=== PATIENT | male | born 1930 | race Caucasian/White ===

== ENCOUNTER 2016-02-26 14:19 | Inpatient (IN) | payer OTHER, MEDICARE ==
[2016-02-26] MEDS ORDERED: ALBUTEROL SO4 2.5/IPRATROPIUM 0.5 INH SOL 3 ML VIAL.NEB. NEB ONE ×2 (14:27→16:15)
[2016-02-26] MEDS ORDERED: ALBUTEROL SO4 0.083% IH SOL 2.5 MG/3 ML VIAL.NEB. NEB ONE (16:02)
[2016-02-26] MEDS ORDERED: predniSONE 20 MG TABLET (UD) PO ONE (16:02)
[2016-02-26] MEDS ORDERED: IPRATROPIUM BR 0.02% 0.5 MG/2.5 ML VIAL.NEB. NEB ONE (16:02)
[2016-02-26] MEDS ORDERED: predniSONE 20 MG TABLET (UD) ONE (16:15)
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
[2016-02-26] MEDS ORDERED: SODIUM CHLORIDE 500 ML IV STA (17:28)
[2016-02-26 17:40] LABS: BASOPHIL 0.3 % (0-2.0); EOSINOPHIL 0.2 % (0-4.5); MCH 31.9 pg (25.7-33.7); MCHC 32.6 g/dl (32.0-35.9); MEAN CELL VOLUME 97.9 fl (80-96); MEAN PLT VOLUME 9.1 fl (7.5-11.1); NEUTROPHILS 88.2 % (42.8-82.8); PLATELET COUNT 231 K/MM3 (134-434); RDW 12.7 % (11.9-15.9); WHITE BLOOD COUNT 9.8 K/mm3 (4.0-10.0)
[2016-02-26 17:53] LABS: ALBUMIN 4.2 g/dl (3.4-5.0); ANION GAP 10 (8-16); CALCIUM 9.7 mg/dL (8.5-10.1); CO2 25 mmol/L (21-32); GLUCOSE,RANDOM 122 mg/dL (74-106); SGPT/ALT 26 U/L (12-78)
[2016-02-26 17:59] LABS: ALK PHOS 60 U/L (45-117); BILIRUBIN,TOTAL 0.4 mg/dL (0.2-1.0); CREATININE 1.1 mg/dL (0.7-1.3); SGOT/AST 21 U/L (15-37); TOT PROT 7.3 g/dl (6.4-8.2); TROPONIN I 0.07 ng/ml (0.00-0.05)
[2016-02-26] MEDS ORDERED: ASPIRIN 81 MG CHEWABLE TABLETS PO ONE (18:02)
[2016-02-26] MEDS ORDERED: MAGNESIUM SULF 50% (8.12 MEQ/2 ML-1 GM VIAL) IVPB ONE (18:02)
[2016-02-26] MEDS ORDERED: MAGNESIUM SULF 50% (8.12 MEQ/2 ML-1 GM VIAL) ONE (18:24)
[2016-02-26] MEDS ORDERED: ASPIRIN 81 MG CHEWABLE TABLETS ONE (18:24)
[2016-02-26] MEDS ORDERED: ACETAMINOPHEN 325 MG TABLET (FP) PO PRN (18:25)
[2016-02-26] MEDS ORDERED: ACETAMINOPHEN 325 MG TABLET (FP) PO ONE (18:45)
[2016-02-26] MEDS ORDERED: ACETAMINOPHEN 325 MG TABLET (FP) ONE (18:46)
[2016-02-26] MEDS ORDERED: ATORVASTATIN CA 10 MG TABLET (FP) PO SCH (22:00)
[2016-02-26] MEDS ORDERED: METOPROLOL TARTRATE 50 MG TABLET (FP) PO SCH (22:00)
[2016-02-26] MEDS ORDERED: HYDROCHLOROTHIAZIDE 25 MG TABLET (FP) PO SCH (22:00)
[2016-02-26] MEDS ORDERED: HEPARIN NA (PORCINE) 5,000 UNITS/ML 1ML VIAL ONE (22:57)
[2016-02-26] MEDS ORDERED: HYDROCHLOROTHIAZIDE 25 MG TABLET (FP) ONE (22:57)
[2016-02-26] MEDS ORDERED: METOPROLOL TARTRATE 50 MG TABLET (FP) ONE (22:57)
[2016-02-26] MEDS: HEPARIN NA (PORCINE) 5,000 UNITS/ML 1ML VIAL SQ SCH (23:06)
[2016-02-27 00:23] LABS: TROPONIN I 0.6 ng/ml (0.00-0.05)
[2016-02-27] MEDS: ALBUTEROL SO4 2.5/IPRATROPIUM 0.5 INH SOL 3 ML VIAL.NEB. NEB SCH ×2 (01:05→06:25)
[2016-02-27] MEDS ORDERED: HEPARIN NA (PORCINE) 5,000 UNITS/ML 1ML VIAL ONE (06:18)
[2016-02-27] MEDS: HEPARIN NA (PORCINE) 5,000 UNITS/ML 1ML VIAL SQ SCH (06:25)
[2016-02-27 08:03] LABS: MCH 32.8 pg (25.7-33.7); MCHC 33.5 g/dl (32.0-35.9); MEAN CELL VOLUME 97.7 fl (80-96); MEAN PLT VOLUME 8.9 fl (7.5-11.1); PLATELET COUNT 174 K/MM3 (134-434); RDW 12.7 % (11.9-15.9); WHITE BLOOD COUNT 6.7 K/mm3 (4.0-10.0)
[2016-02-27 08:13] LABS: CALCIUM 9.4 mg/dL (8.5-10.1); CREATININE 1.1 mg/dL (0.7-1.3); MAGNESIUM 2.6 mg/dL (1.8-2.4); PHOSPHOROUS 3.2 mg/dL (2.5-4.9)
[2016-02-27 08:51] LABS: TROPONIN I 0.73 ng/ml (0.00-0.05)
[2016-02-27] MEDS ORDERED: predniSONE 20 MG TABLET (UD) PO SCH (10:00)
[2016-02-27] MEDS ORDERED: amLODIPine BESYLATE 10 MG TABLET (FP) PO SCH ×2 (10:00→12:29)
[2016-02-27] MEDS ORDERED: PANTOPRAZOLE 40 MG TABLET (FP) ONE (10:08)
[2016-02-27] MEDS ORDERED: predniSONE 20 MG TABLET (UD) ONE (10:08)
[2016-02-27] MEDS ORDERED: amLODIPine BESYLATE 5 MG TABLET (FP) ONE (10:09)
--- NOTE | 2016-02-27 10:46 | HP ---
Admitting History and Physical - Primary Care Physician PCP: Alec Foley - Admission Chief Complaint: I could not breathe History of Present Illness: Mr Briscoe is a very pleasant 85 year old male who comes in with difficulty breathing. He says he recently had a dental procedure and began to feel ill on Friday. He was having a headache and a non-productive cough. He thought it was from the dental procedure so he decided to wait it out at home. However Friday he began to become more short of breath. He started using his advair twice a day (he normally uses it daily) without relief. On Friday he was significantly worse and both advair and his rescue albuterol was not improving his shortness of breath so he came in. He was admitted to the hospital and started on prednisone. Currently he is feeling better. He is still short of breath but much improved. His cough is becoming productive. He denies fevers, chills, lightheadedness, dizziness, chest pain or pressure, nausea, vomiting, diarrhea, constipation, difficulty or pain on urination, or swelling. He has some abdominal muscle soreness secondary to coughing. History Source: Patient Limitations to Obtaining History: No Limitations - Past Medical History Cardiovascular: Yes: CAD, HTN, Hyperlipdemia Heme/Onc: Yes: Anemia - Past Surgical History Past Surgical History: Yes: Colectomy, Stent, TURP - Smoking History Smoking history: Former smoker Have you smoked in the past 12 months: No If you are a former smoker, when did you quit?: 45 YRS AGO - Alcohol/Substance Use Hx Alcohol Use: No History of Substance Use: reports: None - Social History Usual Living Arrangement: Yes: Alone ADL: Independent History of Recent Travel: No Home Medications - Allergies Allergies/Adverse Reactions: Allergies Allergy/AdvReac Type Severity Reaction Status Date / Time No Known Allergies Allergy Verified 02/26/16 14:21 - Home Medications Home Medications: Ambulatory Orders Amlodipine Besylate [Norvasc] 10 mg PO DAILY 12/05/11 Aspirin Coated [Ecotrin] 81 mg PO DAILY 12/05/11 Ferrous Fumarate [Iron] 65 mg PO DAILY 12/05/11 Magnesium 250 mg PO DAILY 12/05/11 Metoprolol/Hydrochlorothiazide [Metoprolol-Hctz 50-25 mg Tab] 1 each PO HS 12/04 Simvastatin [Zocor] 20 mg PO HS 12/05/11 Cyanocobalamin (Vitamin B-12) [Vitamin B-12] 1,000 mcg PO DAILY 02/26/16 Family Disease History - Family Disease History Family Disease History: Heart Disease: Mother (CHF), Other: Father (kidney disease) Review of Systems Findings/Remarks: Full review of systems obtained, as per HPI and otherwise negative Physical Examination Vital Signs: Vital Signs Temperature 98.1 F 02/27/16 07:39 Pulse Rate 76 02/27/16 09:25 Respiratory Rate 18 02/27/16 09:25 Blood Pressure 147/75 02/27/16 09:25 O2 Sat by Pulse Oximetry (%) 98 02/27/16 09:25 Constitutional: Yes: Well Nourished, No Distress, Calm Eyes: Yes: Conjunctiva Clear, EOM Intact HENT: Yes: Atraumatic, Normocephalic Cardiovascular: Yes: Regular Rate and Rhythm. No: Gallop, Murmur, Rub Respiratory: Yes: Regular, Rhonchi, Wheezes. No: Rales Gastrointestinal: Yes: Normal Bowel Sounds, Soft. No: Distention, Tenderness Extremities: Yes: WNL Edema: No Labs: CBC, BMP 02/27/16 07:00 02/27/16 07:00 Imaging - Results Chest X-ray: Report Reviewed, Image Reviewed Problem List - Problems (1) Influenza A Assessment/Plan: -even though presenting 48 hours after onset, patient is high risk including -over 65 years of age -history of asthma -requiring hospitalization -will start tamiflu 75mg bid, day 02/14 Code(s): J10.1 - FLU DUE TO OTH IDENT INFLUENZA VIRUS W OTH RESP MANIFEST (2) Asthma exacerbation Assessment/Plan: -secondary to influenza -not requiring oxygen -start tamiflu -placed on oral prednisone -duonealessio prn Code(s): J45.901 - UNSPECIFIED ASTHMA WITH (ACUTE) EXACERBATION (3) Elevated troponin Assessment/Plan: -suspect stress induced and not NSTEMI -cardiology contacted -continue home regimen Code(s): R79.89 - OTHER SPECIFIED ABNORMAL FINDINGS OF BLOOD CHEMISTRY (4) CAD (coronary artery disease) Assessment/Plan: -quiescent, but with elevated troponin -cardiology consulted -continue home regimen Code(s): I25.10 - ATHSCL HEART DISEASE OF [place] CORONARY ARTERY W/O ANG PCTRS (5) HTN (hypertension) Assessment/Plan: -continue norvasc and metoprolol Code(s): I10 - ESSENTIAL (PRIMARY) HYPERTENSION (6) HLD (hyperlipidemia) Assessment/Plan: -continue statin Code(s): E78.5 - HYPERLIPIDEMIA, UNSPECIFIED
[2016-02-27 11:07] VITALS: BMI 22.1
[2016-02-27] MEDS ORDERED: ALBUTEROL SO4 2.5/IPRATROPIUM 0.5 INH SOL 3 ML VIAL.NEB. NEB ONE (11:07)
[2016-02-27] MEDS ORDERED: methylPREDNISolone NA SUCC 125 MG/2 ML VIAL ONE (11:07)
[2016-02-27] MEDS: ALBUTEROL SO4 2.5/IPRATROPIUM 0.5 INH SOL 3 ML VIAL.NEB. NEB PRN ×2 (11:15→11:30)
[2016-02-27] MEDS ORDERED: methylPREDNISolone NA SUCC 125 MG/2 ML VIAL IVPB ONE (11:32)
[2016-02-27] MEDS ORDERED: METOPROLOL TARTRATE 5 MG/5 ML VIAL ONE (11:46)
[2016-02-27] MEDS ORDERED: METOPROLOL TARTRATE 5 MG/5 ML VIAL IVPUSH ONE ×2 (11:47→12:14)
[2016-02-27] MEDS ORDERED: FUROSEMIDE 40 MG/4 ML INJECTABLE VIAL IVPB ONE (11:47)
[2016-02-27 11:48] LABS: ARTERIAL BLD GAS O2 SATURATION 99.1 % (90-98.9); ARTERIAL BLOOD GAS BASE EXCESS -2.8 meq/l (-2-2); ARTERIAL BLOOD GAS HCO3 22.2 meq/L (22-26); ARTERIAL BLOOD GAS pH 7.35 (7.35-7.45)
[2016-02-27] MEDS ORDERED: NITROGLYCERIN 25MG/D5W 250ML 250 ML IVPB SCH (12:00)
--- NOTE | 2016-02-27 12:07 | PN ---
Progress Note (short form) - Note Progress Note: Chief Complaint: Events noted, notes reviewed, acute dyspnea and sinus tachycardia with ambulation, reported chest pain, denied any orthopnea History of Present Illness: Seen and examined on telemetry. Full consult dictated Medications: Current Medications Acetaminophen (Tylenol -) 650 mg PO Q4H PRN PRN Reason: FEVER OR PAIN Albuterol/Ipratropium (Duoneb -) 1 amp NEB QIDR PRN PRN Reason: SHORT OF BREATH/WHEEZING Amlodipine Besylate (Norvasc -) 10 mg PO DAILY [facility] Aspirin (Ecotrin -) 81 mg PO DAILY [facility] Atorvastatin Calcium (Lipitor -) 10 mg PO HS [facility] Last Admin: 02/26/16 23:06 Dose: 10 mg Cyanocobalamin (Vitamin B12 -) 1,000 mcg PO DAILY [facility] Heparin Sodium (Porcine) (Heparin -) 5,000 unit SQ TID [facility] Last Admin: 02/27/16 06:25 Dose: 5,000 unit Hydrochlorothiazide (Hctz -) 25 mg PO HS [facility] Last Admin: 02/26/16 23:06 Dose: 25 mg Nitroglycerin/Dextrose (Nitroglycerin 25mg/D5w 250ml) 250 mls @ 6 mls/hr IVPB TITR HEATH PRN Reason: 10 MCG/MIN Methylprednisolone Sodium Succinate (Solu-Medrol -) 40 mg IVPB Q6H-IV [facility] Metoprolol Tartrate (Lopressor -) 50 mg PO HS [facility] Last Admin: 02/26/16 23:07 Dose: 50 mg Oseltamivir Phosphate (Tamiflu -) 30 mg PO BID [facility] Pantoprazole Sodium (Protonix -) 40 mg PO DAILY [facility] Review of Systems Cardiovascular: As noted above Respiratory: denies: reports: Cough Gastrointestinal: denies: Nausea, Vomiting, Diarrhea, Constipation or Abdominal Discomfort Musculoskeletal: No Symptoms Reported Endocrine: No Symptoms Reported Vital Signs: Last Vital Signs Temp Pulse Resp BP Pulse Ox 98.1 F 85 18 159/70 96 02/27/16 07:39 02/27/16 10:45 02/27/16 10:45 02/27/16 10:45 02/27/16 10:45 Constitutional: No Distress, Calm Neck: Supple Positive JVD No Bruit Cardiovascular: S1 S2 Regular Rate and Rhythm Grade 1/6 SM Apical Respiratory: Diminished Breath Sounds at the Bases with Bilateral Scattered Rhonchi Gastrointestinal: Soft Benign Normal Bowel Sounds Ext: No Edema Labs: CBC, BMP 02/27/16 07:00 02/27/16 07:00 Troponin, BNP 02/26/16 02/26/16 02/27/16 16:20 23:22 07:00 Troponin I 0.07 H 0.60 H D 0.73 H* Hepatic Panel Total Bilirubin 0.4 mg/dL (0.2-1.0) 02/26/16 16:20 AST 21 U/L (15-37) 02/26/16 16:20 ALT 26 U/L (12-78) 02/26/16 16:20 Alkaline Phosphatase 60 U/L (45-117) 02/26/16 16:20 Albumin 4.2 g/dl (3.4-5.0) 02/26/16 16:20 Assessment/Plan ASSESSMENT: 1. Clinical presentation is consistent with acute systolic/diastolic LV dysfunction with class III-IV NYHA classification LV failure, precipitated by acute ischemia 2. CAD post PCI/stent angina pectoris with evidence of NSTEMI 3. HTN, hypertensive urgency in the setting of acute ischemia 4. Hypercholesterolemia 5. Influenza, acute 6. Anemia 7. History of CKD PLAN: 1. Continue ASA and add Plavix and Heparin with caution considering the above noted anemia 2. IV Lopressor and PO Lopressor, titrate dosage as tolerated, continue Norvasc 3. Add ACEI or ARBS with caution considering the above noted CKD 4. IV Lasix with caution 5. IV Nitro and add Ranexa 6. Continue Lipitor 7. Echocardiography to evaluate LV size and function 8. Considering the above noted clinical presentation would recommend early R&LH cath coronary angiography once LV failure class improves Tyree Arora M.D.
--- NOTE | 2016-02-27 12:22 | CONSULT ---
Consult Consult Specialty:: PULMONARY/CM Referred by:: Dr. Magana Reason for Consultation:: respiratory distress - History of Present Illness Chief Complaint: shortness of breath History of Present Illness: 85yo male with h/o HTN, hyperlipidemia, CAD s/p PCI, COPD who presents with worsening shortness of breath. He had been receiving treatment for the flu as an outpt with tamiflu and prednisone. While in the ER, developed acute respiratory distress, found to be tachyardic. Denies any chest pain. No fevers, chills or sweats. No improvement with nebulizer treatments. Placed on BiPAP, given lopressor and lasix with some improvement in symptoms. - History Source History Provided By: Patient, Medical Record Limitations to Obtaining History: Clinical Condition - Past Medical History Cardio/Vascular: Yes: CAD, HTN, Hyperlipdemia - Past Surgical History Past Surgical History: Yes: Colectomy, Stent, TURP - Alcohol/Substance Use Hx Alcohol Use: No History of Substance Use: reports: None - Smoking History Smoking history: Former smoker Have you smoked in the past 12 months: No If you are a former smoker, when did you quit?: 45 YRS AGO - Social History ADL: Independent History of Recent Travel: No Home Medications - Allergies Allergies/Adverse Reactions: Allergies Allergy/AdvReac Type Severity Reaction Status Date / Time No Known Allergies Allergy Verified 02/26/16 14:21 - Home Medications Home Medications: Ambulatory Orders Amlodipine Besylate [Norvasc] 10 mg PO DAILY 12/05/11 Aspirin Coated [Ecotrin] 81 mg PO DAILY 12/05/11 Ferrous Fumarate [Iron] 65 mg PO DAILY 12/05/11 Magnesium 250 mg PO HS 12/05/11 Metoprolol/Hydrochlorothiazide [Metoprolol-Hctz 50-25 mg Tab] 1 each PO HS 12/04 Simvastatin [Zocor] 20 mg PO HS 12/05/11 Cyanocobalamin (Vitamin B-12) [Vitamin B-12] 1,000 mcg PO SUWEFR 02/26/16 Family Disease History - Family Disease History Family Disease History: Heart Disease: Mother (CHF), Other: Father (kidney disease) Review of Systems - Review of Systems Constitutional: reports: Weakness. denies: Chills, Fever Eyes: denies: Recent Change in Vision HENT: denies: Nasal Congestion, Throat Pain Neck: denies: Stiffness, Tenderness Cardiovascular: reports: Shortness of Breath. denies: Chest Pain, Palpitations Respiratory: reports: Cough, SOB. denies: Hemoptysis, Wheezing Gastrointestinal: denies: Abdominal Pain, Nausea, Vomiting Genitourinary: denies: Dysuria, Hematuria Neurological: denies: Dizziness, Headache Physical Exam Vital Sings: Vital Signs Temperature 98.1 F 02/27/16 07:39 Pulse Rate 128 H 02/27/16 11:15 Respiratory Rate 26 H 02/27/16 11:15 Blood Pressure 179/107 02/27/16 11:15 O2 Sat by Pulse Oximetry (%) 100 02/27/16 11:15 Constitutional: Yes: Moderate Distress (tachypneic on BiPAP) Eyes: Yes: Conjunctiva Clear, EOM Intact HENT: Yes: Atraumatic, Normocephalic Neck: Yes: Supple, Trachea Midline Cardiovascular: Yes: Tachycardia Respiratory: Yes: Diminished (distant breath sounds) ...Clubbing: No Gastrointestinal: Yes: Normal Bowel Sounds, Soft. 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 Code(s): I50.33 - ACUTE ON CHRONIC DIASTOLIC (CONGESTIVE) HEART FAILURE (2) CAD (coronary artery disease) Code(s): I25.10 - ATHSCL HEART DISEASE OF [place] CORONARY ARTERY W/O ANG PCTRS (3) Influenza A Code(s): J10.1 - FLU DUE TO OTH IDENT INFLUENZA VIRUS W OTH RESP MANIFEST (4) COPD exacerbation Code(s): J44.1 - CHRONIC OBSTRUCTIVE PULMONARY DISEASE W (ACUTE) EXACERBATION (5) HTN (hypertension) Code(s): I10 - ESSENTIAL (PRIMARY) HYPERTENSION (6) Elevated troponin Code(s): R79.89 - OTHER SPECIFIED ABNORMAL FINDINGS OF BLOOD CHEMISTRY Assessment/Plan Acute on Chronic LV Diastolic Heart Failure CAD r/o NSTEMI r/o Acute COPD Exacerbation Influenza A - rate control with lopressor - continue lasix - monitor urine output, creatinine - taper off nitro gtt as BP improves - trend cardiac enzymes, EKGs - echocardiogram - ASA, statin - anticoagulation per cardiology - agree with empiric steroids for now - continue tamiflu - inhaled bronchodilators as needed - will need cardiac work up when more stable - ICU monitoring for now Thank you for this consult Fredrick Marshall MD
[2016-02-27] MEDS ORDERED: HEPARIN NA (PORCINE) 5,000 UNITS/ML 1ML VIAL IVPUSH PRN ×2 (12:27)
[2016-02-27] MEDS ORDERED: VALSARTAN 80 MG TABLET (UD) PO SCH (12:30)
[2016-02-27 12:50] LABS: ALLENS TEST POSITIVE; ART PUNCT SITE RIGHT RADIAL; PT. ON O2? YES
[2016-02-27 12:51] LABS: LPM/O2% 6L; TYPE OF O2 NEBULIZER
[2016-02-27 12:51] LABS: TROPONIN I 0.87 ng/ml (0.00-0.05)
--- NOTE | 2016-02-27 13:08 | CONS ---
DATE OF CONSULTATION: 02/27/2016 REQUESTING PHYSICIAN: Brady Magana MD CHIEF COMPLAINT: Dyspnea, cardiovascular evaluation. HISTORY: An 85-year-old male known to our service with known history of coronary artery disease status post percutaneous coronary intervention, stenting , angina pectoris, diastolic left ventricular dysfunction with chronic class 0 [place] [employer] classification left ventricular failure, cardiovascular disease, hypercholesterolemia, carotid stenosis moderate in severity who presented to [facility] with increasing dyspnea, which has been progressive over the last several days in addition to cough nonproductive of sputum. The patient reported orthopnea but denied paroxysmal or nocturnal dyspnea. The patient, in addition, reported chest discomfort described as heaviness, which was predominantly noted with physical activity. The patient denied any peripheral edema. The patient denied any palpitations, dizziness, lightheadedness, or syncope. Initially the patient was noted to have evidence of influenza on rapid screening. This a.m. the patient developed acute dyspnea with hypoxemia upon ambulation requiring BiPAP utilization. PAST MEDICAL HISTORY: Coronary artery disease status post percutaneous coronary intervention stenting, angina pectoris, diastolic left ventricular dysfunction with class 0 [place] [employer] classification left ventricular failure, hypertensive cardiovascular disease, hypercholesterolemia, carotid stenosis, total prostate resection for benign prostatic hypertrophy. SOCIAL HISTORY: Prior history of smoking. FAMILY HISTORY: Positive for coronary artery disease. ALLERGIES: None reported. MEDICAL THERAPY: At home included Lopressor hydrochlorothiazide 50/25 mg once a day, amlodipine 10 mg once a day, Ecotrin 81 mg once a day, simvastatin 20 mg once a day, iron supplementation, magnesium 250 mg once a day, vitamin D 1000 IU once a day. REVIEW OF SYSTEMS: Head and Neck: Denies headache, photophobia, blurring of vision. Respiratory: Reports cough nonproductive of sputum. Cardiovascular: As noted above. Gastrointestinal: Denies nausea, vomiting, diarrhea, abdominal discomfort. Genitourinary: No symptoms reported. Musculoskeletal: No symptoms reported. PHYSICAL EXAMINATION: Vital Signs: Blood pressure during the above noted acute episode was 179/107 mmHg, pulse rate 128 beats per minute, which increased to 162 beats per minute, saturation 98%. Head and Neck: Pupils equal and reactive to light and accommodation. Extraocular muscles are intact. Anicteric sclerae. Positive JVD. No bruits appreciated. Chest: Bilateral scattered rhonchi with diminished breath sounds at the bases. Cardiovascular: S1, S2. Irregularly. Tachycardia. Grade 1/6 systolic apical murmur. No clicks or gallops. Abdomen: Soft, benign. Normoactive bowel sounds. Extremities: Trace edema. Intact distal pulses. No calf tenderness. DIAGNOSTIC DATA: Electrocardiogram reveals sinus tachycardia with diffuse ST- segment abnormality consistent with ischemia. CBC revealed white blood cell count 6.7, hemoglobin 11.6, platelets 174. Basic metabolic profile revealed sodium 139, potassium 4.6, BUN 24, creatinine 1.1, glucose 126. Troponin initially was 0.07 , repeat 0.60 and third troponin was 0.73 with a CPK of 189. ASSESSMENT: 1. Clinical presentation consistent with acute systolic/diastolic left ventricular dysfunction with class 3-4 [place] [employer] classification left ventricular failure precipitated by acute ischemia. 2. Coronary artery disease post percutaneous coronary intervention stenting, angina pectoris with evidence of non-ST segment elevation myocardial infarction. 3. Hypertensive cardiovascular disease, hypertensive urgency in the setting of acute ischemia. 4. Hypercholesterolemia. 5. Influenza, acute. 6. Anemia. 7. History of chronic kidney disease. RECOMMENDATION: 1. Continuation of aspirin. Addition of Plavix and heparin with caution considering the above noted anemia. 2. IV Lopressor and p.o. Lopressor. Titrate dosage as tolerated. 3. Addition of JUN inhibitor or angiotensin receptor blockers with caution considering the above noted chronic kidney disease. 4. IV Lasix with caution considering the above noted chronic kidney disease. 5. IV nitroglycerin and addition of Ranexa. 6. Continuation of Lipitor and titration of dosage. 7. Echocardiography for evaluation of left ventricular size and function. 8. Considering the above noted clinical presentation, would recommend early right and left heart cardiac catheterization, coronary angiography once LV failure class improves. Discussed in detail with the patient. Thank you for the kind referral. ANIYA MAJANO M.D. [id number] MTDD
[2016-02-27] MEDS ORDERED: ASPIRIN 81 MG CHEWABLE TABLETS ONE (13:20)
[2016-02-27] MEDS ORDERED: HEPARIN INFUSION - 500 ML IVPB ONE (13:21)
[2016-02-27] MEDS: ASPIRIN COATED 81 MG TABLET.EC PO SCH (13:28)
[2016-02-27] MEDS: PANTOPRAZOLE 40 MG TABLET (FP) PO SCH (13:28)
[2016-02-27] MEDS: OSELTAMIVIR PHOSPHATE 30 MG CAPSULE PO SCH ×2 (13:29→21:23)
[2016-02-27] MEDS: METOPROLOL TARTRATE 50 MG TABLET (FP) PO SCH ×2 (13:30→21:21)
[2016-02-27] MEDS: CYANOCOBALAMIN 1,000 MCG TABLET (FP) PO SCH (13:31)
[2016-02-27] MEDS ORDERED: CLOPIDOGREL BISULFATE 75 MG TABLET (FP) ONE (13:33)
[2016-02-27] MEDS: CLOPIDOGREL BISULFATE 75 MG TABLET (FP) PO SCH (13:35)
[2016-02-27 14:07] LABS: INR 0.97 (0.82-1.09); PROTHROMBIN TIME (PATIENT) 10.7 SEC (9.98-11.88)
[2016-02-27] MEDS: HEPARIN INFUSION - 500 ML IVPB SCH (14:41)
[2016-02-27] MEDS: methylPREDNISolone NA SUCC 40 MG/1 ML VIAL IVPB SCH ×2 (14:45→21:21)
--- NOTE | 2016-02-27 16:24 | EKG ---
Test Reason : Blood Pressure : / mmHG Vent. Rate : 125 BPM Atrial Rate : 125 BPM P-R Int : 142 ms QRS Dur : 082 ms QT Int : 308 ms P-R-T Axes : 072 063 104 degrees QTc Int : 444 ms SINUS TACHYCARDIA WITH PREMATURE ATRIAL COMPLEXES MARKED ST ABNORMALITY, POSSIBLE INFEROLATERAL SUBENDOCARDIAL INJURY ABNORMAL ECG WHEN COMPARED WITH ECG OF 08-JAN-2008 16:05, PREMATURE ATRIAL COMPLEXES ARE NOW PRESENT VENT. RATE HAS INCREASED BY [address] NOW DEPRESSED IN INFERIOR LEADS ST NOW DEPRESSED IN ANTEROLATERAL LEADS T WAVE INVERSION NOW EVIDENT IN LATERAL LEADS Confirmed by REAL KENNEY MD ([id number]) on 02/27/2016 4:23:55 PM Referred By: Confirmed By:REAL KENNEY MD
[2016-02-27] MEDS: RANOLAZINE E.R. 500 MG TABLET (FP) PO SCH ×2 (17:14→21:21)
[2016-02-27] MEDS ORDERED: PT OWN MED DRAWER 7, Y5N ONE (21:18)
[2016-02-27] MEDS: ATORVASTATIN CA 80 MG TABLET (FP) PO SCH (21:22)
[2016-02-28] MEDS: methylPREDNISolone NA SUCC 40 MG/1 ML VIAL IVPB SCH ×4 (03:39→21:24)
[2016-02-28 05:57] LABS: MCH 32.4 pg (25.7-33.7); MCHC 33.2 g/dl (32.0-35.9); MEAN CELL VOLUME 97.5 fl (80-96); MEAN PLT VOLUME 8.9 fl (7.5-11.1); NEUTROPHILS 91.3 % (42.8-82.8); PLATELET COUNT 230 K/MM3 (134-434); RDW 12.8 % (11.9-15.9); WHITE BLOOD COUNT 12.8 K/mm3 (4.0-10.0)
[2016-02-28 06:48] LABS: CALCIUM 8.9 mg/dL (8.5-10.1); CREATININE 1.6 mg/dL (0.7-1.3)
[2016-02-28 06:49] LABS: MAGNESIUM 2.2 mg/dL (1.8-2.4); PHOSPHOROUS 5.1 mg/dL (2.5-4.9)
[2016-02-28 07:47] LABS: ARTERIAL BLOOD GAS pH 7.42 (7.35-7.45)
[2016-02-28 07:48] LABS: ALLENS TEST POSITIVE; ART PUNCT SITE LEFT RADIAL; ARTERIAL BLD GAS O2 SATURATION 95.1 % (90-98.9); ARTERIAL BLOOD GAS BASE EXCESS 1.7 meq/l (-2-2); ARTERIAL BLOOD GAS HCO3 25.7 meq/L (22-26); LPM/O2% 2L; PT. ON O2? YES; TYPE OF O2 NASAL
[2016-02-28 07:50] LABS: ARTERIAL BLOOD GAS PO2 78.9 mmHg (68-100)
[2016-02-28] MEDS ORDERED: PT OWN MED DRAWER 7, Y5N ONE ×4 (08:12→21:13)
[2016-02-28] MEDS: CLOPIDOGREL BISULFATE 75 MG TABLET (FP) PO SCH (09:25)
[2016-02-28] MEDS: PANTOPRAZOLE 40 MG TABLET (FP) PO SCH (09:25)
[2016-02-28] MEDS: METOPROLOL TARTRATE 50 MG TABLET (FP) PO SCH ×2 (09:25→21:23)
[2016-02-28] MEDS: ASPIRIN COATED 81 MG TABLET.EC PO SCH (09:26)
[2016-02-28] MEDS: RANOLAZINE E.R. 500 MG TABLET (FP) PO SCH ×2 (09:26→21:23)
[2016-02-28] MEDS ORDERED: FUROSEMIDE 40 MG/4 ML INJECTABLE VIAL IVPUSH SCH (10:00)
[2016-02-28] MEDS: CYANOCOBALAMIN 1,000 MCG TABLET (FP) PO SCH (10:06)
[2016-02-28] MEDS: VALSARTAN 80 MG TABLET (UD) PO SCH (10:06)
[2016-02-28] MEDS: OSELTAMIVIR PHOSPHATE 30 MG CAPSULE PO SCH ×2 (10:06→21:24)
--- NOTE | 2016-02-28 10:37 | PN ---
Progress Note, Physician Chief Complaint: Mr Briscoe says his breathing is "off and on". States he was doing well, but when he tried to urinate he became short of breath. No cp or n/v. - Current Medication List Current Medications: Active Medications Acetaminophen (Tylenol -) 650 mg PO Q4H PRN PRN Reason: FEVER OR PAIN Albuterol/Ipratropium (Duoneb -) 1 amp NEB QIDR PRN PRN Reason: SHORT OF BREATH/WHEEZING Last Admin: 02/27/16 11:30 Dose: 1 amp Amlodipine Besylate (Norvasc -) 5 mg PO DAILY [facility] Aspirin (Ecotrin -) 81 mg PO DAILY [facility] Last Admin: 02/28/16 09:26 Dose: 81 mg Atorvastatin Calcium (Lipitor -) 80 mg PO HS [facility] Last Admin: 02/27/16 21:22 Dose: 80 mg Clopidogrel Bisulfate (Plavix -) 75 mg PO DAILY [facility] Last Admin: 02/28/16 09:25 Dose: 75 mg Cyanocobalamin (Vitamin B12 -) 1,000 mcg PO DAILY [facility] Last Admin: 02/28/16 10:06 Dose: 1,000 mcg Furosemide (Lasix Injection -) 40 mg IVPUSH DAILY [facility] Last Admin: 02/28/16 10:07 Dose: 40 mg Heparin Sodium (Porcine) (Heparin -) 1,000 unit IVPUSH PRN PRN PRN Reason: Heparin Heparin Sodium (Porcine) (Heparin -) 5,000 unit IVPUSH PRN PRN PRN Reason: Heparin Heparin Sodium/Dextrose (Heparin Infusion -) 500 mls @ 16 mls/hr IVPB TITR HEATH ; 800 UNITS/HR PRN Reason: Protocol Last Titration: 02/28/16 09:10 Dose: 700 units/hr Methylprednisolone Sodium Succinate (Solu-Medrol -) 40 mg IVPB Q6H-IV [facility] Last Admin: 02/28/16 08:40 Dose: 40 mg Metoprolol Tartrate (Lopressor -) 50 mg PO BID [facility] Last Admin: 02/28/16 09:25 Dose: 50 mg Oseltamivir Phosphate (Tamiflu -) 30 mg PO BID [facility] Last Admin: 02/28/16 10:06 Dose: 30 mg Pantoprazole Sodium (Protonix -) 40 mg PO DAILY [facility] Last Admin: 02/28/16 09:25 Dose: 40 mg Ranolazine (Ranexa -) 500 mg PO BID [facility] Last Admin: 02/28/16 09:26 Dose: 500 mg Valsartan (Diovan -) 80 mg PO DAILY [facility] Last Admin: 02/28/16 10:06 Dose: 80 mg - Objective Vital Signs: Vital Signs Temperature 98 F 02/28/16 06:00 Pulse Rate 70 02/28/16 09:30 Respiratory Rate 16 02/28/16 06:00 Blood Pressure 153/73 02/28/16 06:00 O2 Sat by Pulse Oximetry (%) 92 L 02/28/16 09:30 Constitutional: Yes: Calm, Mild Distress Cardiovascular: Yes: Regular Rate and Rhythm. No: Gallop, Murmur, Rub Respiratory: Yes: On Nasal O2, Tachypnea, Wheezes Gastrointestinal: Yes: Normal Bowel Sounds, Soft. No: Distention, Tenderness Extremities: Yes: WNL Edema: No Labs: CBC, BMP 02/28/16 05:05 02/28/16 05:05 INR, PTT INR 0.97 (0.82-1.09) 02/27/16 13:15 Problem List - Problems (1) NSTEMI (non-ST elevated myocardial infarction) Code(s): I21.4 - NON-ST ELEVATION (NSTEMI) MYOCARDIAL INFARCTION (2) Acute on chronic congestive heart failure with left ventricular diastolic dysfunction Code(s): I50.33 - ACUTE ON CHRONIC DIASTOLIC (CONGESTIVE) HEART FAILURE (3) Influenza A Code(s): J10.1 - FLU DUE TO OTH IDENT INFLUENZA VIRUS W OTH RESP MANIFEST (4) Asthma exacerbation Code(s): J45.901 - UNSPECIFIED ASTHMA WITH (ACUTE) EXACERBATION (5) CAD (coronary artery disease) Code(s): I25.10 - ATHSCL HEART DISEASE OF [place] CORONARY ARTERY W/O ANG PCTRS (6) HTN (hypertension) Code(s): I10 - ESSENTIAL (PRIMARY) HYPERTENSION (7) HLD (hyperlipidemia) Code(s): E78.5 - HYPERLIPIDEMIA, UNSPECIFIED (8) DAVID (acute kidney injury) Code(s): N17.9 - ACUTE KIDNEY FAILURE, UNSPECIFIED Assessment/Plan (1) NSTEMI (non-ST elevated myocardial infarction) -appreciate cardiology assistance -continue metoprolol and statin -losartan, ranexa, aspirin, and plavix started this admission -may need to stop losartan considering renal function -also placed on heparin gtt -cardiology to decide on cardiac cath Code(s): I21.4 - NON-ST ELEVATION (NSTEMI) MYOCARDIAL INFARCTION (2) Acute on chronic congestive heart failure with left ventricular diastolic dysfunction -on IV lasix -ECHO pending -may need to decrease lasix considering renal function -cardiology following Code(s): I50.33 - ACUTE ON CHRONIC DIASTOLIC (CONGESTIVE) HEART FAILURE (3) Influenza A Assessment/Plan: -continue tamiflu 30mg bid, renally dosed. Day 2 Code(s): J10.1 - FLU DUE TO OTH IDENT INFLUENZA VIRUS W OTH RESP MANIFEST (4) Asthma exacerbation with acute respiratory failure Assessment/Plan: -pulmonary following -off of bipap but requiring oxygen -continue duonebs and steroids Code(s): J45.901 - UNSPECIFIED ASTHMA WITH (ACUTE) EXACERBATION (5) CAD (coronary artery disease) Assessment/Plan: -as above Code(s): I25.10 - ATHSCL HEART DISEASE OF [place] CORONARY ARTERY W/O ANG PCTRS (6) HTN (hypertension) Assessment/Plan: -continue norvasc and metoprolol -cozaar started Code(s): I10 - ESSENTIAL (PRIMARY) HYPERTENSION (7) HLD (hyperlipidemia) Assessment/Plan: -continue statin Code(s): E78.5 - HYPERLIPIDEMIA, UNSPECIFIED (8) DAVID (acute kidney injury) -patient being diuresed with IV lasix -also started on cozaar -will check urinalysis, urine creatinine and sodium, and renal ultrasound but suspect it is medication related -consider cessation of cozaar and/or lasix if creatinine continues to increase Code(s): N17.9 - ACUTE KIDNEY FAILURE, UNSPECIFIED 35 minutes spent in critical care time with this patient
[2016-02-28] MEDS ORDERED: ALBUTEROL SO4 0.083% IH SOL 2.5 MG/3 ML VIAL.NEB. NEB PRN (11:40)
--- NOTE | 2016-02-28 11:47 | PN ---
Teaching Attending Note Name of Resident: Ever Hopkins ATTENDING PHYSICIAN STATEMENT I saw and evaluated the patient. I reviewed the resident's note and discussed the case with the resident. I agree with the resident's findings and plan as documented. SUBJECTIVE: Pt seen and examined in the ICU. Off BiPAP but still with shortness of breath. + nonproductive cough and wheezing. No chest pain. Heart rate better controlled. OBJECTIVE: Last Vital Signs Temp Pulse Resp BP Pulse Ox 98 F 70 16 153/73 92 L 02/28/16 06:00 02/28/16 09:30 02/28/16 06:00 02/28/16 06:00 02/28/16 09:30 Intake & Output 02/25/16 02/26/16 02/27/16 02/28/16 23:59 23:59 23:59 23:59 Intake Total 724 672 Output Total 1550 300 Balance -826 372 Weight 125 lb 123 lb 118 lb 2 oz Gen: tachypneic at rest Heart: RRR Lung: bilateral wheezes, rhonchi Abd: soft, nontender Ext: no edema CBC, BMP 02/28/16 05:05 02/28/16 05:05 Active Medications Acetaminophen (Tylenol -) 650 mg PO Q4H PRN PRN Reason: FEVER OR PAIN Albuterol Sulfate (Ventolin 0.083% Nebulizer Soln -) 1 amp NEB Q4H PRN PRN Reason: SHORT OF BREATH/WHEEZING Albuterol/Ipratropium (Duoneb -) 1 amp NEB QIDR HEATH Amlodipine Besylate (Norvasc -) 5 mg PO DAILY [facility] Aspirin (Ecotrin -) 81 mg PO DAILY [facility] Last Admin: 02/28/16 09:26 Dose: 81 mg Atorvastatin Calcium (Lipitor -) 80 mg PO HS [facility] Last Admin: 02/27/16 21:22 Dose: 80 mg Clopidogrel Bisulfate (Plavix -) 75 mg PO DAILY [facility] Last Admin: 02/28/16 09:25 Dose: 75 mg Cyanocobalamin (Vitamin B12 -) 1,000 mcg PO DAILY [facility] Last Admin: 02/28/16 10:06 Dose: 1,000 mcg Heparin Sodium (Porcine) (Heparin -) 1,000 unit IVPUSH PRN PRN PRN Reason: Heparin Heparin Sodium (Porcine) (Heparin -) 5,000 unit IVPUSH PRN PRN PRN Reason: Heparin Heparin Sodium/Dextrose (Heparin Infusion -) 500 mls @ 16 mls/hr IVPB TITR HEATH ; 800 UNITS/HR PRN Reason: Protocol Last Titration: 02/28/16 09:10 Dose: 700 units/hr Methylprednisolone Sodium Succinate (Solu-Medrol -) 40 mg IVPB Q6H-IV [facility] Last Admin: 02/28/16 08:40 Dose: 40 mg Metoprolol Tartrate (Lopressor -) 50 mg PO BID [facility] Last Admin: 02/28/16 09:25 Dose: 50 mg Oseltamivir Phosphate (Tamiflu -) 30 mg PO BID [facility] Last Admin: 02/28/16 10:06 Dose: 30 mg Pantoprazole Sodium (Protonix -) 40 mg PO DAILY [facility] Last Admin: 02/28/16 09:25 Dose: 40 mg Ranolazine (Ranexa -) 500 mg PO BID [facility] Last Admin: 02/28/16 09:26 Dose: 500 mg Valsartan (Diovan -) 80 mg PO DAILY [facility] Last Admin: 02/28/16 10:06 Dose: 80 mg ASSESSMENT AND PLAN: Acute on Chronic LV Diastolic Heart Failure CAD r/o NSTEMI Acute COPD Exacerbation Influenza A Acute Kidney Injury - rate control with lopressor - consider holding valsartan and lasix but will defer to cardiology - monitor urine output, creatinine - add on cardiac markers to today's AM labs as peak not documented yet - f/u echocardiogram - ASA, statin - anticoagulation per cardiology - continue medrol - continue tamiflu - inhaled bronchodilators standing and as needed - will need cardiac work up when pulmonary function more stable - telemetry monitoring Problem List - Problems (1) Acute on chronic congestive heart failure with left ventricular diastolic dysfunction Code(s): I50.33 - ACUTE ON CHRONIC DIASTOLIC (CONGESTIVE) HEART FAILURE (2) CAD (coronary artery disease) Code(s): I25.10 - ATHSCL HEART DISEASE OF [place] CORONARY ARTERY W/O ANG PCTRS (3) Influenza A Code(s): J10.1 - FLU DUE TO OTH IDENT INFLUENZA VIRUS W OTH RESP MANIFEST (4) COPD exacerbation Code(s): J44.1 - CHRONIC OBSTRUCTIVE PULMONARY DISEASE W (ACUTE) EXACERBATION (5) HTN (hypertension) Code(s): I10 - ESSENTIAL (PRIMARY) HYPERTENSION (6) Elevated troponin Code(s): R79.89 - OTHER SPECIFIED ABNORMAL FINDINGS OF BLOOD CHEMISTRY
[2016-02-28] MEDS: HEPARIN INFUSION - 500 ML IVPB SCH ×2 (12:35→21:24)
[2016-02-28] MEDS: amLODIPine BESYLATE 5 MG TABLET (FP) PO SCH (12:37)
--- NOTE | 2016-02-28 13:00 | PN ---
Progress Note (short form) - Note Progress Note: S: 85 year old male, known case of coronary artery disease s/p PCI/ stenting, angina pectoris, left ventricular diastolic dysfunction, left ventricular failure, carotid artery disease, hypercholesterolemia and hypertension. Admitted with acute left ventricular failure, chest heaviness apparently initially associated with exertion. Has ongoing cough and diagnosed to have acute influenza and developed progressive dyspnea requiring BiPaP. Presently patient is out of bed in a chair, has a wet cough, still complains of mild dyspnea at rest. No history of PND or orthopnea. No history of chest pain or discomfort. Patient is afebrile. Active Medications Generic Name Dose Route Start Last Admin Trade Name Freq PRN Reason Stop Dose Admin Acetaminophen 650 mg 02/26/16 18:25 Tylenol - PO Q4H PRN FEVER OR PAIN Albuterol Sulfate 1 amp 02/28/16 11:40 Ventolin 0.083% Nebulizer Soln - NEB Q4H PRN SHORT OF BREATH/WHEEZING Albuterol/Ipratropium 1 amp 02/28/16 12:00 Duoneb - NEB QIDR HEATH Amlodipine Besylate 5 mg 02/27/16 12:33 02/28/16 12:37 Norvasc - PO 5 mg DAILY [facility] Administration Aspirin 81 mg 02/27/16 10:00 02/28/16 09:26 Ecotrin - PO 81 mg DAILY [facility] Administration Atorvastatin Calcium 80 mg 02/27/16 12:29 02/27/16 21:22 Lipitor - PO 80 mg HS [facility] Administration Clopidogrel Bisulfate 75 mg 02/27/16 12:45 02/28/16 09:25 Plavix - PO 75 mg DAILY [facility] Administration Cyanocobalamin 1,000 mcg 02/27/16 10:00 02/28/16 10:06 Vitamin B12 - PO 1,000 mcg DAILY [facility] Administration Heparin Sodium (Porcine) 1,000 unit 02/27/16 12:27 Heparin - IVPUSH PRN PRN Heparin Heparin Sodium (Porcine) 5,000 unit 02/27/16 12:27 Heparin - IVPUSH PRN PRN Heparin Heparin Sodium/Dextrose 500 mls @ 16 mls/hr 02/27/16 12:30 02/28/16 12:35 Heparin Infusion - IVPB Not Given [facility] Protocol 800 UNITS/HR Methylprednisolone Sodium Succinate 40 mg 02/27/16 15:00 02/28/16 08:40 Solu-Medrol - IVPB 40 mg Q6H-IV [facility] Administration Metoprolol Tartrate 50 mg 02/27/16 12:45 02/28/16 09:25 Lopressor - PO 50 mg BID [facility] Administration Oseltamivir Phosphate 30 mg 02/27/16 11:15 02/28/16 10:06 Tamiflu - PO 30 mg BID [facility] Administration Pantoprazole Sodium 40 mg 02/27/16 10:00 02/28/16 09:25 Protonix - PO 40 mg DAILY [facility] Administration Ranolazine 500 mg 02/27/16 12:30 02/28/16 09:26 Ranexa - PO 500 mg BID [facility] Administration Valsartan 80 mg 02/27/16 12:31 02/28/16 10:06 Diovan - PO 80 mg DAILY [facility] Administration O: 85 year old male was in no acute distress, no pallor, cyanosis, clubbing, or jaundice. Last Vital Signs Temp Pulse Resp BP Pulse Ox 98 F 70 16 153/73 92 L 02/28/16 06:00 02/28/16 09:30 02/28/16 06:00 02/28/16 06:00 02/28/16 09:30 Neck: Supple, no JVD, negative HJR, carotids were equal and upstrokes were normal, no thyromegaly appreciated. Heart: PMI was in the 5th intercostal space, no heaves or thrills, S1 and S2 were normal. No murmurs or gallops were appreciated. Lungs: Bilateral scattered crepitations. Abdomen: Soft, nontender, no hepatosplenomegaly appreciated, and no palpable masses were felt. Extremities: No calf tenderness or dependent edema. CBC, BMP 02/28/16 05:05 02/28/16 05:05 Laboratory Results - last 24 hr 02/27/16 02/27/16 02/27/16 13:15 13:15 20:20 WBC RBC Hgb Hct MCV MCHC RDW Plt Count MPV Neutrophils % Lymphocytes % Monocytes % Eosinophils % Basophils % INR 0.97 PTT (Actin FS) 28.6 69.3 H D Anticoagulation Therapy Puncture Site ABG pH ABG pCO2 at Pt Temp ABG pO2 at Pt Temp ABG HCO3 ABG O2 Sat (Measured) ABG O2 Content ABG Base Excess Joshua Test O2 Delivery Device Oxygen Flow Rate Vent Mode Vent Rate Mechanical Rate PEEP Pressure Support Vent Sodium Potassium Chloride Carbon Dioxide Anion Gap BUN Creatinine Random Glucose Calcium Phosphorus Magnesium B-Natriuretic Peptide 02/28/16 02/28/16 02/28/16 05:05 05:05 05:05 WBC 12.8 H D RBC 4.03 Hgb 13.1 D Hct 39.3 MCV 97.5 H MCHC 33.2 RDW 12.8 Plt Count 230 D MPV 8.9 Neutrophils % 91.3 H Lymphocytes % 4.5 L D Monocytes % 4.2 Eosinophils % 0.0 D Basophils % 0.0 INR PTT (Actin FS) Anticoagulation Therapy Puncture Site ABG pH ABG pCO2 at Pt Temp ABG pO2 at Pt Temp ABG HCO3 ABG O2 Sat (Measured) ABG O2 Content ABG Base Excess Joshua Test O2 Delivery Device Oxygen Flow Rate Vent Mode Vent Rate Mechanical Rate PEEP Pressure Support Vent Sodium 138 Potassium 4.5 Chloride 100 Carbon Dioxide 31 Anion Gap 7 L BUN 40 H D Creatinine 1.6 H D Random Glucose 144 H Calcium 8.9 Phosphorus 5.1 H D Magnesium 2.2 B-Natriuretic Peptide 6166.97 H 02/28/16 02/28/16 07:10 07:30 WBC RBC Hgb Hct MCV MCHC RDW Plt Count MPV Neutrophils % Lymphocytes % Monocytes % Eosinophils % Basophils % INR PTT (Actin FS) 98.2 H D Anticoagulation Therapy Y Puncture Site Left radial ABG pH 7.42 ABG pCO2 at Pt Temp 40.1 ABG pO2 at Pt Temp 78.9 D ABG HCO3 25.7 ABG O2 Sat (Measured) 95.1 ABG O2 Content 17.1 ABG Base Excess 1.7 Joshua Test Positive O2 Delivery Device Nasal Oxygen Flow Rate 2l Vent Mode Y Vent Rate Y Mechanical Rate Y PEEP 0.0 Pressure Support Vent Y Sodium Potassium Chloride Carbon Dioxide Anion Gap BUN Creatinine Random Glucose Calcium Phosphorus Magnesium B-Natriuretic Peptide Echocardiogram: 02/28/2016 Reported to be a technically difficult study. Images were suboptimal in quality. Left ventricular reported to be of normal size, thickness and function. Ejection fraction reported to be normal. Probable but not diagnostic. Regional wall motion abnormalities cannot be excluded due to technical visualization. There is trace to mild mitral regurgitation. Mild tricuspid regurgitation. Right ventricular pressure is normal. Trace to mild pulmonic mitral regurgitation. Impression: (1) Acute left ventricular failure: a. Secondary to acute myocardial ischemia b. Left ventricular diastolic dysfunction Code(s): I50.33 - ACUTE ON CHRONIC DIASTOLIC (CONGESTIVE) HEART FAILURE (2) CAD (coronary artery disease) s/p PCI / stenting Code(s): I25.10 - ATHSCL HEART DISEASE OF [place] CORONARY ARTERY W/O ANG PCTRS (3) Influenza A Code(s): J10.1 - FLU DUE TO OTH IDENT INFLUENZA VIRUS W OTH RESP MANIFEST (4) COPD exacerbation Code(s): J44.1 - CHRONIC OBSTRUCTIVE PULMONARY DISEASE W (ACUTE) EXACERBATION (5) HTN (hypertension) Code(s): I10 - ESSENTIAL (PRIMARY) HYPERTENSION (6) Elevated troponin etiology: a. Secondary to acute coronary syndrome. b. Secondary to left ventricular failure. c. Related to chronic kidney disease. Code(s): R79.89 - OTHER SPECIFIED ABNORMAL FINDINGS OF BLOOD CHEMISTRY (7) Chronic kidney disease Code(s): N18.9 - CHRONIC KIDNEY DISEASE, UNSPECIFIED Recommendations: 1. Recheck phosphorus. 2. Continue current cardiac therapy. 3. Follow up basic metabolic profile. Prognosis: Guarded ICU visit: 30 minutes (1pm-1:30pm) Attestation: Documentation prepared by Bryon Hughes, acting as medical practice administrator for Javan Parnell MD.
[2016-02-28] MEDS: ALBUTEROL SO4 2.5/IPRATROPIUM 0.5 INH SOL 3 ML VIAL.NEB. NEB SCH ×2 (13:20→18:10)
--- NOTE | 2016-02-28 14:02 | PN ---
Progress Note, Physician History of Present Illness: seen and examined complains of non productive cough denies chest pain - Current Medication List Current Medications: Active Medications Acetaminophen (Tylenol -) 650 mg PO Q4H PRN PRN Reason: FEVER OR PAIN Albuterol Sulfate (Ventolin 0.083% Nebulizer Soln -) 1 amp NEB Q4H PRN PRN Reason: SHORT OF BREATH/WHEEZING Albuterol/Ipratropium (Duoneb -) 1 amp NEB QIDR [facility] Last Admin: 02/28/16 13:20 Dose: 1 amp Amlodipine Besylate (Norvasc -) 5 mg PO DAILY [facility] Last Admin: 02/28/16 12:37 Dose: 5 mg Aspirin (Ecotrin -) 81 mg PO DAILY [facility] Last Admin: 02/28/16 09:26 Dose: 81 mg Atorvastatin Calcium (Lipitor -) 80 mg PO HS [facility] Last Admin: 02/27/16 21:22 Dose: 80 mg Clopidogrel Bisulfate (Plavix -) 75 mg PO DAILY [facility] Last Admin: 02/28/16 09:25 Dose: 75 mg Cyanocobalamin (Vitamin B12 -) 1,000 mcg PO DAILY [facility] Last Admin: 02/28/16 10:06 Dose: 1,000 mcg Heparin Sodium (Porcine) (Heparin -) 1,000 unit IVPUSH PRN PRN PRN Reason: Heparin Heparin Sodium (Porcine) (Heparin -) 5,000 unit IVPUSH PRN PRN PRN Reason: Heparin Heparin Sodium/Dextrose (Heparin Infusion -) 500 mls @ 16 mls/hr IVPB TITR HEATH ; 800 UNITS/HR PRN Reason: Protocol Last Admin: 02/28/16 12:35 Dose: Not Given Methylprednisolone Sodium Succinate (Solu-Medrol -) 40 mg IVPB Q6H-IV [facility] Last Admin: 02/28/16 08:40 Dose: 40 mg Metoprolol Tartrate (Lopressor -) 50 mg PO BID [facility] Last Admin: 02/28/16 09:25 Dose: 50 mg Oseltamivir Phosphate (Tamiflu -) 30 mg PO BID [facility] Last Admin: 02/28/16 10:06 Dose: 30 mg Pantoprazole Sodium (Protonix -) 40 mg PO DAILY [facility] Last Admin: 02/28/16 09:25 Dose: 40 mg Ranolazine (Ranexa -) 500 mg PO BID [facility] Last Admin: 02/28/16 09:26 Dose: 500 mg Valsartan (Diovan -) 80 mg PO DAILY [facility] Last Admin: 02/28/16 10:06 Dose: 80 mg - Objective Vital Signs: Vital Signs Temperature 98 F 02/28/16 06:00 Pulse Rate 70 02/28/16 09:30 Respiratory Rate 16 02/28/16 06:00 Blood Pressure 153/73 02/28/16 06:00 O2 Sat by Pulse Oximetry (%) 92 L 02/28/16 09:30 Constitutional: Yes: Well Nourished, Other (mild resp distress) Eyes: Yes: EOM Intact Neck: Yes: Supple Cardiovascular: Yes: Regular Rate and Rhythm Respiratory: Yes: Rhonchi, Wheezes (bilaterally L>R) Gastrointestinal: Yes: Soft Edema: No Labs: CBC, BMP 02/28/16 05:05 02/28/16 05:05 INR, PTT INR 0.97 (0.82-1.09) 02/27/16 13:15 Assessment/Plan 85M recently diagnosed with influenze on tamilfu presented to the ED with acute COPD exacerbation and hypoxia. Hypoxia/Acute exacerbation of COPD much improved continue solu-medrol continue duonebs standing albuterol PRN continue tamiflu HTN/CAD/NSTEMI/? acute on chronic LV diastolic dysfunction add on troponin to document peak continue plavix continue aspirin continue valsartan for now may need to decrease dose by half or stop completely if DAVID does not improve Stop lasix since patient seems dry and has DAVID after lasix continue lopressor as HR is now controlled continue ranexa continue hep gtt PTT per protocol continue statin f/u echo read pending DAVID Stop Lasix after discussing with cardiology will continue valsartan for now if his Cr does not improve may need to cut dose in half vs stopping do not adjust meds without cardiology consultation per Dr. Sheik pierce lytes and Cr renally dose meds avoid nephrotoxic agents Influenza A continue tamiflu droplet precautions PPx: Hep gtt protonix no PT consult needed patient OOB to chair and able to ambulate FEN: no IVF no electrolyte issues on diet transfer to telemtry
[2016-02-28 14:47] LABS: TROPONIN I 1.2 ng/ml (0.00-0.05)
[2016-02-28] MEDS: ATORVASTATIN CA 80 MG TABLET (FP) PO SCH (21:23)
[2016-02-29] MEDS: ALBUTEROL SO4 2.5/IPRATROPIUM 0.5 INH SOL 3 ML VIAL.NEB. NEB SCH ×5 (00:05→23:30)
[2016-02-29] MEDS: methylPREDNISolone NA SUCC 40 MG/1 ML VIAL IVPB SCH ×4 (02:46→21:11)
[2016-02-29 07:21] LABS: MCH 32.2 pg (25.7-33.7); MCHC 33.2 g/dl (32.0-35.9); MEAN PLT VOLUME 9.1 fl (7.5-11.1); PLATELET COUNT 249 K/MM3 (134-434); RDW 12.5 % (11.9-15.9); WHITE BLOOD COUNT 12.8 K/mm3 (4.0-10.0)
[2016-02-29 07:32] LABS: CALCIUM 8.4 mg/dL (8.5-10.1)
[2016-02-29 07:50] LABS: CREATININE 2.4 mg/dL (0.7-1.3)
[2016-02-29 08:15] LABS: TROPONIN I 0.51 ng/ml (0.00-0.05)
[2016-02-29] MEDS ORDERED: PT OWN MED DRAWER 7, Y5N ONE ×2 (09:01→21:00)
[2016-02-29] MEDS: METOPROLOL TARTRATE 50 MG TABLET (FP) PO SCH ×2 (09:19→21:11)
[2016-02-29] MEDS: CYANOCOBALAMIN 1,000 MCG TABLET (FP) PO SCH (09:19)
[2016-02-29] MEDS: amLODIPine BESYLATE 5 MG TABLET (FP) PO SCH (09:19)
[2016-02-29] MEDS: OSELTAMIVIR PHOSPHATE 30 MG CAPSULE PO SCH ×2 (09:19→21:11)
[2016-02-29] MEDS: ASPIRIN COATED 81 MG TABLET.EC PO SCH (09:19)
[2016-02-29] MEDS: CLOPIDOGREL BISULFATE 75 MG TABLET (FP) PO SCH (09:19)
[2016-02-29] MEDS: VALSARTAN 80 MG TABLET (UD) PO SCH (09:19)
[2016-02-29] MEDS: PANTOPRAZOLE 40 MG TABLET (FP) PO SCH (09:19)
[2016-02-29] MEDS: RANOLAZINE E.R. 500 MG TABLET (FP) PO SCH ×2 (09:23→21:11)
--- NOTE | 2016-02-29 11:20 | PN ---
Progress Note, Physician Chief Complaint: Events noted Complains of cough and congestion History of Present Illness: Patient was seen and examined. Awake and alert. Chart was reviewed Still with cough and mucous. Denies chest pain or palpitation. Breathing comfortable this am - Current Medication List Current Medications: Active Medications Acetaminophen (Tylenol -) 650 mg PO Q4H PRN PRN Reason: FEVER OR PAIN Albuterol Sulfate (Ventolin 0.083% Nebulizer Soln -) 1 amp NEB Q4H PRN PRN Reason: SHORT OF BREATH/WHEEZING Albuterol/Ipratropium (Duoneb -) [address] [facility] Last Admin: 02/29/16 07:20 Dose: 1 amp Amlodipine Besylate (Norvasc -) [address] [facility] Last Admin: 02/29/16 09:19 Dose: 5 mg Aspirin (Ecotrin -) [address] [facility] Last Admin: 02/29/16 09:19 Dose: 81 mg Atorvastatin Calcium (Lipitor -) [address] [facility] Last Admin: 02/28/16 21:23 Dose: 80 mg Clopidogrel Bisulfate (Plavix -) [address] [facility] Last Admin: 02/29/16 09:19 Dose: 75 mg Cyanocobalamin (Vitamin B12 -) 1,[address] [facility] Last Admin: 02/29/16 09:19 Dose: 1,000 mcg Heparin Sodium (Porcine) (Heparin -) 1,000 unit IVPUSH PRN PRN PRN Reason: Heparin Heparin Sodium (Porcine) (Heparin -) 5,000 unit IVPUSH PRN PRN PRN Reason: Heparin Heparin Sodium/Dextrose (Heparin Infusion -) 500 mls @ 16 mls/hr IVPB TITR HEATH ; 800 UNITS/HR PRN Reason: Protocol Last Admin: 02/28/16 21:24 Dose: 14 mls/hr Methylprednisolone Sodium Succinate (Solu-Medrol -) [address] IVPB Q6H-IV [facility] Last Admin: 02/29/16 09:19 Dose: 40 mg Metoprolol Tartrate (Lopressor -) [address] [facility] Last Admin: 02/29/16 09:19 Dose: 50 mg Oseltamivir Phosphate (Tamiflu -) [address] [facility] Last Admin: 02/29/16 09:19 Dose: 30 mg Pantoprazole Sodium (Protonix -) [address] [facility] Last Admin: 02/29/16 09:19 Dose: 40 mg Ranolazine (Ranexa -) [address] [facility] Last Admin: 02/29/16 09:23 Dose: 500 mg Valsartan (Diovan -) [address] [facility] Last Admin: 02/29/16 09:19 Dose: 80 mg - Objective Vital Signs: Vital Signs Temperature 98.3 F 02/29/16 09:20 Pulse Rate 69 02/29/16 09:20 Respiratory Rate 20 02/29/16 09:20 Blood Pressure 124/56 02/29/16 09:20 O2 Sat by Pulse Oximetry (%) 96 02/28/16 22:00 Neck: Yes: Supple Cardiovascular: Yes: Regular Rate and Rhythm, Murmur (Soft SM), S1, S2 Respiratory: Yes: Diminished, Rhonchi Gastrointestinal: Yes: Normal Bowel Sounds, Soft. No: Tenderness Edema: No Additional Findings/Remarks: Review of Systems Cardiovascular: As noted above Respiratory: denies: reports: Cough Gastrointestinal: denies: Nausea, Vomiting, Diarrhea, Constipation or Abdominal Discomfort Musculoskeletal: No Symptoms Reported Endocrine: No Symptoms Reported Labs: CBC, BMP 02/29/16 05:35 02/29/16 05:35 INR, PTT INR 0.97 (0.82-1.09) 02/27/16 13:15 Laboratory Results - last 24 hr 02/28/16 02/28/16 02/28/16 05:00 05:05 15:30 WBC RBC Hgb Hct MCV MCHC RDW Plt Count MPV PTT (Actin FS) 75.8 H Sodium Potassium Chloride Carbon Dioxide Anion Gap BUN Creatinine Random Glucose Calcium Troponin I Cancelled 1.20 H* D Urine Creatinine 02/28/16 02/29/16 02/29/16 17:30 05:35 05:35 WBC 12.8 H RBC 3.86 L Hgb 12.5 Hct 37.5 MCV 97.0 H MCHC 33.2 RDW 12.5 Plt Count 249 MPV 9.1 PTT (Actin FS) 65.9 H Sodium Potassium Chloride Carbon Dioxide Anion Gap BUN Creatinine Random Glucose Calcium Troponin I Urine Creatinine 35.8 02/29/16 05:35 WBC RBC Hgb Hct MCV MCHC RDW Plt Count MPV PTT (Actin FS) Sodium 136 Potassium 3.5 D Chloride 97 L Carbon Dioxide 26 Anion Gap 13 BUN 70 H D Creatinine 2.4 H D Random Glucose 146 H Calcium 8.4 L Troponin I 0.51 H D Urine Creatinine Problem List - Problems (1) 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 transplanted heart: [place] heart Associated angina: without angina Qualified Code(s): I25.10 - Atherosclerotic heart disease of [place] coronary artery without angina pectoris (3) Elevated troponin Code(s): R79.89 - OTHER SPECIFIED ABNORMAL FINDINGS OF BLOOD CHEMISTRY (4) HLD (hyperlipidemia) Code(s): E78.5 - HYPERLIPIDEMIA, UNSPECIFIED Qualifiers: Hyperlipidemia type: pure hypercholesterolemia Qualified Code(s): E78.0 - Pure hypercholesterolemia (5) HTN (hypertension) Code(s): I10 - ESSENTIAL (PRIMARY) HYPERTENSION Qualifiers: Hypertension type: essential hypertension Qualified Code(s): I10 - Essential (primary) hypertension (6) Influenza A Code(s): J10.1 - FLU DUE TO OTH IDENT INFLUENZA VIRUS W OTH RESP MANIFEST (7) NSTEMI (non-ST elevated myocardial infarction) Code(s): I21.4 - NON-ST ELEVATION (NSTEMI) MYOCARDIAL INFARCTION (8) History of percutaneous coronary intervention Code(s): Z98.89 - OTHER SPECIFIED POSTPROCEDURAL STATES * DO NOT USE * Assessment/Plan 1. Clinical presentation is consistent with acute systolic/diastolic LV dysfunction with class III-IV NYHA classification LV failure, precipitated by acute ischemia 2. CAD post PCI/stent angina pectoris with evidence of NSTEMI 3. HTN 4. Hypercholesterolemia 5. Influenza, acute 6. Anemia 7. History of CKD PLAN: 1. Continue ASA and Plavix and Heparin IV with caution considering the above noted anemia 2. Continue Lopressor 50 mg BID, titrate dosage as tolerated, continue Norvasc 5 mg QD 3. Continue Diovan as tolerated 4. IV Lasix with caution 5. Continue Ranexa 500 mg BID as tolerated 6. Continue Lipitor 7. Transthoracic echocardiography report reviewed 8. Considering the above noted clinical presentation would recommend early right and left heart catheterization/coronary angiography once LV failure class and influenza improves Further plans are to follow. Above fully explained to patient and he understands Piero Ruiz MD
--- NOTE | 2016-02-29 12:26 | PN ---
Progress Note, Physician History of Present Illness: pulmonary alert,oob-chair ,feeling better less congested. - Current Medication List Current Medications: Active Medications Acetaminophen (Tylenol -) 650 mg PO Q4H PRN PRN Reason: FEVER OR PAIN Albuterol Sulfate (Ventolin 0.083% Nebulizer Soln -) 1 amp NEB Q4H PRN PRN Reason: SHORT OF BREATH/WHEEZING Albuterol/Ipratropium (Duoneb -) 1 amp NEB QIDR [facility] Last Admin: 02/29/16 07:20 Dose: 1 amp Amlodipine Besylate (Norvasc -) 5 mg PO DAILY [facility] Last Admin: 02/29/16 09:19 Dose: 5 mg Aspirin (Ecotrin -) 81 mg PO DAILY [facility] Last Admin: 02/29/16 09:19 Dose: 81 mg Atorvastatin Calcium (Lipitor -) 80 mg PO HS [facility] Last Admin: 02/28/16 21:23 Dose: 80 mg Clopidogrel Bisulfate (Plavix -) 75 mg PO DAILY [facility] Last Admin: 02/29/16 09:19 Dose: 75 mg Cyanocobalamin (Vitamin B12 -) 1,000 mcg PO DAILY [facility] Last Admin: 02/29/16 09:19 Dose: 1,000 mcg Heparin Sodium (Porcine) (Heparin -) 1,000 unit IVPUSH PRN PRN PRN Reason: Heparin Heparin Sodium (Porcine) (Heparin -) 5,000 unit IVPUSH PRN PRN PRN Reason: Heparin Heparin Sodium/Dextrose (Heparin Infusion -) 500 mls @ 16 mls/hr IVPB TITR HEATH ; 800 UNITS/HR PRN Reason: Protocol Last Admin: 02/28/16 21:24 Dose: 14 mls/hr Methylprednisolone Sodium Succinate (Solu-Medrol -) 40 mg IVPB Q6H-IV [facility] Last Admin: 02/29/16 09:19 Dose: 40 mg Metoprolol Tartrate (Lopressor -) 50 mg PO BID [facility] Last Admin: 02/29/16 09:19 Dose: 50 mg Oseltamivir Phosphate (Tamiflu -) 30 mg PO BID [facility] Last Admin: 02/29/16 09:19 Dose: 30 mg Pantoprazole Sodium (Protonix -) 40 mg PO DAILY [facility] Last Admin: 02/29/16 09:19 Dose: 40 mg Ranolazine (Ranexa -) 500 mg PO BID [facility] Last Admin: 02/29/16 09:23 Dose: 500 mg Valsartan (Diovan -) 80 mg PO DAILY [facility] Last Admin: 02/29/16 09:19 Dose: 80 mg - Objective Vital Signs: Vital Signs Temperature 98.3 F 02/29/16 09:20 Pulse Rate 69 02/29/16 09:20 Respiratory Rate 20 02/29/16 09:20 Blood Pressure 124/56 02/29/16 09:20 O2 Sat by Pulse Oximetry (%) 96 02/28/16 22:00 Constitutional: Yes: Well Nourished, Calm Eyes: Yes: WNL HENT: Yes: WNL Neck: Yes: WNL Cardiovascular: Yes: Regular Rate and Rhythm, S1, S2 Respiratory: Yes: Wheezes (bilateral wheezes) Gastrointestinal: Yes: Normal Bowel Sounds, Soft Extremities: Yes: WNL Edema: No Labs: CBC, BMP 02/29/16 05:35 02/29/16 05:35 INR, PTT INR 0.97 (0.82-1.09) 02/27/16 13:15 - ....Imaging Chest X-ray: Report Reviewed, Image Reviewed Assessment/Plan ASSESSMENT AND PLAN: Acute on Chronic LV Diastolic Heart Failure CAD r/o NSTEMI Acute COPD Exacerbation Influenza A Acute Kidney Injury - rate control with lopressor - monitor urine output, creatinine - anticoagulation per cardiology - continue medrol same dose - continue tamiflu - inhaled bronchodilators standing and as needed Problem List - Problems (1) Acute on chronic 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
[2016-02-29] MEDS ORDERED: MAG HYDROX/AL HYDROX/SIMETH 30 ML UNIT-DOSE CUP PO PRN (12:30)
[2016-02-29] MEDS: HEPARIN INFUSION - 500 ML IVPB SCH (15:19)
--- NOTE | 2016-02-29 15:27 | EKG ---
Test Reason : Blood Pressure : / mmHG Vent. Rate : 068 BPM Atrial Rate : 068 BPM P-R Int : 128 ms QRS Dur : 084 ms QT Int : 440 ms P-R-T Axes : 075 055 061 degrees QTc Int : 467 ms SINUS RHYTHM WITH PREMATURE ATRIAL COMPLEXES OTHERWISE NORMAL ECG WHEN COMPARED WITH ECG OF 27-FEB-2016 11:48, VENT. RATE HAS DECREASED BY 71 BPM NON-SPECIFIC CHANGE IN ST SEGMENT IN INFERIOR LEADS ST NO LONGER DEPRESSED IN ANTEROLATERAL LEADS T WAVE INVERSION NO LONGER EVIDENT IN INFERIOR LEADS T WAVE INVERSION NO LONGER EVIDENT IN ANTEROLATERAL LEADS Confirmed by MARNI DRISCOLL MD ([id number]) on 02/29/2016 3:27:28 PM Referred By: EUGENE ZUNIGA Confirmed By:MARNI DRISCOLL MD
--- NOTE | 2016-02-29 17:19 | PN ---
Progress Note, Physician Chief Complaint: Mr Briscoe says his breathing is improved, not short of breath but still with significant coughing. No cp or n/v. - Current Medication List Current Medications: Active Medications Acetaminophen (Tylenol -) 650 mg PO Q4H PRN PRN Reason: FEVER OR PAIN Al Hydroxide/Mg Hydroxide ([place] Oral Suspension -) 30 ml PO Q6H PRN PRN Reason: DYSPEPSIA Albuterol Sulfate (Ventolin 0.083% Nebulizer Soln -) 1 amp NEB Q4H PRN PRN Reason: SHORT OF BREATH/WHEEZING Albuterol/Ipratropium (Duoneb -) 1 amp NEB QIDR [facility] Last Admin: 02/29/16 11:10 Dose: 1 amp Amlodipine Besylate (Norvasc -) 5 mg PO DAILY [facility] Last Admin: 02/29/16 09:19 Dose: 5 mg Aspirin (Ecotrin -) 81 mg PO DAILY [facility] Last Admin: 02/29/16 09:19 Dose: 81 mg Atorvastatin Calcium (Lipitor -) 80 mg PO HS [facility] Last Admin: 02/28/16 21:23 Dose: 80 mg Clopidogrel Bisulfate (Plavix -) 75 mg PO DAILY [facility] Last Admin: 02/29/16 09:19 Dose: 75 mg Cyanocobalamin (Vitamin B12 -) 1,000 mcg PO DAILY [facility] Last Admin: 02/29/16 09:19 Dose: 1,000 mcg Heparin Sodium (Porcine) (Heparin -) 1,000 unit IVPUSH PRN PRN PRN Reason: Heparin Heparin Sodium (Porcine) (Heparin -) 5,000 unit IVPUSH PRN PRN PRN Reason: Heparin Heparin Sodium/Dextrose (Heparin Infusion -) 500 mls @ 16 mls/hr IVPB TITR HEATH ; 800 UNITS/HR PRN Reason: Protocol Last Admin: 02/29/16 15:19 Dose: Not Given Sodium Chloride (Normal Saline -) 250 mls @ 42 mls/hr IV [facility] Methylprednisolone Sodium Succinate (Solu-Medrol -) 40 mg IVPB Q6H-IV [facility] Last Admin: 02/29/16 15:17 Dose: 40 mg Metoprolol Tartrate (Lopressor -) 50 mg PO BID [facility] Last Admin: 02/29/16 09:19 Dose: 50 mg Oseltamivir Phosphate (Tamiflu -) 30 mg PO BID [facility] Last Admin: 02/29/16 09:19 Dose: 30 mg Pantoprazole Sodium (Protonix -) 40 mg PO DAILY [facility] Last Admin: 02/29/16 09:19 Dose: 40 mg Ranolazine (Ranexa -) 500 mg PO BID [facility] Last Admin: 02/29/16 09:23 Dose: 500 mg Valsartan (Diovan -) 80 mg PO DAILY [facility] Last Admin: 02/29/16 09:19 Dose: 80 mg - Objective Vital Signs: Vital Signs Temperature 97.9 F 02/29/16 14:39 Pulse Rate 71 02/29/16 14:39 Respiratory Rate 20 02/29/16 14:39 Blood Pressure 108/56 02/29/16 14:39 O2 Sat by Pulse Oximetry (%) 93 L 02/29/16 10:42 Constitutional: Yes: Well Nourished, No Distress, Calm Cardiovascular: Yes: Regular Rate and Rhythm. No: Gallop, Murmur, Rub Respiratory: Yes: Regular, Cough, On Nasal O2, Rhonchi, Wheezes Gastrointestinal: Yes: Normal Bowel Sounds, Soft. 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 transplanted heart: [place] heart Associated angina: without angina Qualified Code(s): I25.10 - Atherosclerotic heart disease of [place] coronary artery without angina pectoris (6) HTN (hypertension) Code(s): I10 - ESSENTIAL (PRIMARY) HYPERTENSION Qualifiers: Hypertension type: essential hypertension Qualified Code(s): I10 - Essential (primary) hypertension (7) HLD (hyperlipidemia) Code(s): E78.5 - HYPERLIPIDEMIA, UNSPECIFIED Qualifiers: Hyperlipidemia type: pure hypercholesterolemia Qualified Code(s): E78.0 - Pure hypercholesterolemia (8) DAVID (acute kidney injury) Code(s): N17.9 - ACUTE KIDNEY FAILURE, UNSPECIFIED Assessment/Plan (1) NSTEMI (non-ST elevated myocardial infarction) -appreciate cardiology assistance -continue metoprolol and statin -losartan, ranexa, aspirin, and plavix started this admission -continue heparin gtt -cardiology to decide on cardiac cath Code(s): I21.4 - NON-ST ELEVATION (NSTEMI) MYOCARDIAL INFARCTION (2) Acute on chronic congestive heart failure with left ventricular diastolic dysfunction -IV lasix stopped secondary to renal function -ECHO results reviewed -cardiology following Code(s): I50.33 - ACUTE ON CHRONIC DIASTOLIC (CONGESTIVE) HEART FAILURE (3) Influenza A Assessment/Plan: -continue tamiflu 30mg bid, renally dosed. Day 3 Code(s): J10.1 - FLU DUE TO OTH IDENT INFLUENZA VIRUS W OTH RESP MANIFEST (4) Asthma exacerbation with acute respiratory failure Assessment/Plan: -pulmonary following -continue oxygen -continue duonebs and steroids Code(s): J45.901 - UNSPECIFIED ASTHMA WITH (ACUTE) EXACERBATION (5) CAD (coronary artery disease) Assessment/Plan: -as above Code(s): I25.10 - ATHSCL HEART DISEASE OF [place] CORONARY ARTERY W/O ANG PCTRS (6) HTN (hypertension) Assessment/Plan: -continue norvasc and metoprolol -cozaar started Code(s): I10 - ESSENTIAL (PRIMARY) HYPERTENSION (7) HLD (hyperlipidemia) Assessment/Plan: -continue statin Code(s): E78.5 - HYPERLIPIDEMIA, UNSPECIFIED (8) DAVID (acute kidney injury) -worsening -will give small amount of fluid today -recheck in am -will continue cozaar currently secondary to cardiac concerns -however if gentle hydration does not correct renal function, will stop cozaar Code(s): N17.9 - ACUTE KIDNEY FAILURE, UNSPECIFIED
[2016-02-29] MEDS: SODIUM CHLORIDE 1,000 ML IV SCH (18:21)
[2016-02-29] MEDS: guaiFENesin 600 MG TABLET.ER (FP) PO SCH (21:11)
[2016-02-29] MEDS: ATORVASTATIN CA 80 MG TABLET (FP) PO SCH (21:11)
[2016-03-01] MEDS: methylPREDNISolone NA SUCC 40 MG/1 ML VIAL IVPB SCH ×4 (02:11→21:55)
[2016-03-01] MEDS: ALBUTEROL SO4 2.5/IPRATROPIUM 0.5 INH SOL 3 ML VIAL.NEB. NEB SCH ×4 (06:22→23:49)
[2016-03-01 07:17] LABS: MCH 33.2 pg (25.7-33.7); MCHC 34.4 g/dl (32.0-35.9); MEAN CELL VOLUME 96.7 fl (80-96); PLATELET COUNT 188 K/MM3 (134-434); RDW 12.4 % (11.9-15.9)
[2016-03-01 07:48] LABS: CREATININE 2.8 mg/dL (0.7-1.3); PHOSPHOROUS 6.1 mg/dL (2.5-4.9)
[2016-03-01] MEDS ORDERED: PT OWN MED DRAWER 7, Y5N ONE ×2 (09:06→11:12)
[2016-03-01] MEDS: METOPROLOL TARTRATE 50 MG TABLET (FP) PO SCH ×2 (09:49→21:56)
[2016-03-01] MEDS: amLODIPine BESYLATE 5 MG TABLET (FP) PO SCH (09:49)
[2016-03-01] MEDS: ASPIRIN COATED 81 MG TABLET.EC PO SCH (09:49)
[2016-03-01] MEDS: CYANOCOBALAMIN 1,000 MCG TABLET (FP) PO SCH (09:50)
[2016-03-01] MEDS: guaiFENesin 600 MG TABLET.ER (FP) PO SCH ×2 (09:50→21:56)
[2016-03-01] MEDS: PANTOPRAZOLE 40 MG TABLET (FP) PO SCH (09:50)
[2016-03-01] MEDS: RANOLAZINE E.R. 500 MG TABLET (FP) PO SCH ×2 (09:50→21:55)
[2016-03-01] MEDS: VALSARTAN 80 MG TABLET (UD) PO SCH (09:50)
[2016-03-01] MEDS: CLOPIDOGREL BISULFATE 75 MG TABLET (FP) PO SCH (09:50)
--- NOTE | 2016-03-01 11:09 | PN ---
Progress Note, Physician History of Present Illness: Dyspnea and nonproductive cough resolving. - Current Medication List Current Medications: Active Medications Acetaminophen (Tylenol -) 650 mg PO Q4H PRN PRN Reason: FEVER OR PAIN Al Hydroxide/Mg Hydroxide (Mylanta Oral Suspension -) 30 ml PO Q6H PRN PRN Reason: DYSPEPSIA Albuterol Sulfate (Ventolin 0.083% Nebulizer Soln -) 1 amp NEB Q4H PRN PRN Reason: SHORT OF BREATH/WHEEZING Albuterol/Ipratropium (Duoneb -) 1 amp NEB QIDR [facility] Last Admin: 03/01/16 06:22 Dose: 1 amp Amlodipine Besylate (Norvasc -) 5 mg PO DAILY [facility] Last Admin: 03/01/16 09:49 Dose: 5 mg Aspirin (Ecotrin -) 81 mg PO DAILY [facility] Last Admin: 03/01/16 09:49 Dose: 81 mg Atorvastatin Calcium (Lipitor -) 80 mg PO HS [facility] Last Admin: 02/29/16 21:11 Dose: 80 mg Clopidogrel Bisulfate (Plavix -) 75 mg PO DAILY [facility] Last Admin: 03/01/16 09:50 Dose: 75 mg Cyanocobalamin (Vitamin B12 -) 1,000 mcg PO DAILY [facility] Last Admin: 03/01/16 09:50 Dose: 1,000 mcg Guaifenesin (Mucinex -) 600 mg PO BID [facility] Last Admin: 03/01/16 09:50 Dose: 600 mg Heparin Sodium (Porcine) (Heparin -) 1,000 unit IVPUSH PRN PRN PRN Reason: Heparin Heparin Sodium (Porcine) (Heparin -) 5,000 unit IVPUSH PRN PRN PRN Reason: Heparin Heparin Sodium/Dextrose (Heparin Infusion -) 500 mls @ 16 mls/hr IVPB TITR HEATH ; 800 UNITS/HR PRN Reason: Protocol Last Admin: 02/29/16 15:19 Dose: Not Given Sodium Chloride (Normal Saline -) 1,000 mls @ 42 mls/hr IV ASDIR [facility] Last Admin: 02/29/16 18:21 Dose: 42 mls/hr Methylprednisolone Sodium Succinate (Solu-Medrol -) 40 mg IVPB Q6H-IV [facility] Last Admin: 03/01/16 09:49 Dose: 40 mg Metoprolol Tartrate (Lopressor -) 50 mg PO BID [facility] Last Admin: 03/01/16 09:49 Dose: 50 mg Oseltamivir Phosphate (Tamiflu -) 30 mg PO BID [facility] Last Admin: 02/29/16 21:11 Dose: 30 mg Pantoprazole Sodium (Protonix -) 40 mg PO DAILY [facility] Last Admin: 03/01/16 09:50 Dose: 40 mg Ranolazine (Ranexa -) 500 mg PO BID [facility] Last Admin: 03/01/16 09:50 Dose: 500 mg Valsartan (Diovan -) 80 mg PO DAILY [facility] Last Admin: 03/01/16 09:50 Dose: 80 mg - Objective Vital Signs: Vital Signs Temperature 98.2 F 03/01/16 08:32 Pulse Rate 70 03/01/16 08:32 Respiratory Rate 18 03/01/16 08:32 Blood Pressure 113/53 03/01/16 08:32 O2 Sat by Pulse Oximetry (%) 94 L 03/01/16 10:00 Constitutional: Yes: No Distress, Calm Neck: Yes: Supple Cardiovascular: Yes: Regular Rate and Rhythm Respiratory: Yes: Regular, Diminished Gastrointestinal: Yes: Normal Bowel Sounds, Soft Edema: No Labs: CBC, BMP 03/01/16 05:38 03/01/16 05:38 INR, PTT INR 0.97 (0.82-1.09) 02/27/16 13:15 Problem List - Problems (1) DAVID (acute kidney injury) Code(s): N17.9 - ACUTE KIDNEY FAILURE, UNSPECIFIED (2) Acute on chronic congestive heart failure with left ventricular diastolic dysfunction Code(s): I50.33 - ACUTE ON CHRONIC DIASTOLIC (CONGESTIVE) HEART FAILURE (3) CAD (coronary artery disease) Code(s): I25.10 - ATHSCL HEART DISEASE OF [place] CORONARY ARTERY W/O ANG PCTRS Qualifiers: Coronary Disease-Associated Artery/Lesion type: [place] artery [place] vs. transplanted heart: [place] heart Associated angina: without angina Qualified Code(s): I25.10 - Atherosclerotic heart disease of [place] coronary artery without angina pectoris (4) COPD exacerbation Code(s): J44.1 - CHRONIC OBSTRUCTIVE PULMONARY DISEASE W (ACUTE) EXACERBATION (5) HLD (hyperlipidemia) Code(s): E78.5 - HYPERLIPIDEMIA, UNSPECIFIED Qualifiers: Hyperlipidemia type: pure hypercholesterolemia Qualified Code(s): E78.0 - Pure hypercholesterolemia (6) HTN (hypertension) Code(s): I10 - ESSENTIAL (PRIMARY) HYPERTENSION Qualifiers: Hypertension type: essential hypertension Qualified Code(s): I10 - Essential (primary) hypertension (7) History of percutaneous coronary intervention Code(s): Z98.89 - OTHER SPECIFIED POSTPROCEDURAL STATES * DO NOT USE * (8) Influenza A Code(s): J10.1 - FLU DUE TO OTH IDENT INFLUENZA VIRUS W OTH RESP MANIFEST (9) Subendocardial ischemia Code(s): I24.8 - OTHER FORMS OF ACUTE ISCHEMIC HEART DISEASE (10) Anemia Code(s): D64.9 - ANEMIA, UNSPECIFIED Assessment/Plan 02/28/2016 Echo: Normal LV size and fxn, mild TR, tr-mild MS 1. Acute diastolic LV failure resolving 2. CAD post PCI/stent angina pectoris with subendocardial ischemia 3. HTN 4. Hypercholesterolemia 5. Influenza, acute 6. Anemia 7. DAVID PLAN: 1. Continue ASA 81 qd and Plavix 75 qd, d/c IV Heparin, check TSH, lipid panel 2. Continue Lopressor 50 mg BID, titrate dosage as tolerated, continue Norvasc 5 mg QD 3. D/c Diovan and Lasix pending renal recovery 4. Continue Ranexa 500 mg BID and Lipitor 80 qhs 5. BD, IV steroids, Tamiflu, O2, DVT and GI prophylaxis 6. Would defer cardiac catheterization/coronary angiography pending resolution of DAVID and influenza
[2016-03-01] MEDS: OSELTAMIVIR PHOSPHATE 30 MG CAPSULE PO SCH (11:34)
--- NOTE | 2016-03-01 12:36 | PN ---
Progress Note, Physician History of Present Illness: pulmonary alert,feeling better,less congested - Current Medication List Current Medications: Active Medications Acetaminophen (Tylenol -) 650 mg PO Q4H PRN PRN Reason: FEVER OR PAIN Al Hydroxide/Mg Hydroxide (Mylanta Oral Suspension -) 30 ml PO Q6H PRN PRN Reason: DYSPEPSIA Albuterol Sulfate (Ventolin 0.083% Nebulizer Soln -) 1 amp NEB Q4H PRN PRN Reason: SHORT OF BREATH/WHEEZING Albuterol/Ipratropium (Duoneb -) 1 amp NEB QIDR [facility] Last Admin: 03/01/16 06:22 Dose: 1 amp Amlodipine Besylate (Norvasc -) 5 mg PO DAILY [facility] Last Admin: 03/01/16 09:49 Dose: 5 mg Aspirin (Ecotrin -) 81 mg PO DAILY [facility] Last Admin: 03/01/16 09:49 Dose: 81 mg Atorvastatin Calcium (Lipitor -) 80 mg PO HS [facility] Last Admin: 02/29/16 21:11 Dose: 80 mg Clopidogrel Bisulfate (Plavix -) 75 mg PO DAILY [facility] Last Admin: 03/01/16 09:50 Dose: 75 mg Cyanocobalamin (Vitamin B12 -) 1,000 mcg PO DAILY [facility] Last Admin: 03/01/16 09:50 Dose: 1,000 mcg Guaifenesin (Mucinex -) 600 mg PO BID [facility] Last Admin: 03/01/16 09:50 Dose: 600 mg Heparin Sodium (Porcine) (Heparin -) 5,000 unit SQ BID [facility] Sodium Chloride (Normal Saline -) 1,000 mls @ 42 mls/hr IV ASDIR [facility] Last Admin: 02/29/16 18:21 Dose: 42 mls/hr Methylprednisolone Sodium Succinate (Solu-Medrol -) 40 mg IVPB Q6H-IV [facility] Last Admin: 03/01/16 09:49 Dose: 40 mg Metoprolol Tartrate (Lopressor -) 50 mg PO BID [facility] Last Admin: 03/01/16 09:49 Dose: 50 mg Oseltamivir Phosphate (Tamiflu -) 30 mg PO BID [facility] Last Admin: 03/01/16 11:34 Dose: 30 mg Pantoprazole Sodium (Protonix -) 40 mg PO DAILY [facility] Last Admin: 03/01/16 09:50 Dose: 40 mg Ranolazine (Ranexa -) 500 mg PO BID [facility] Last Admin: 03/01/16 09:50 Dose: 500 mg - Objective Vital Signs: Vital Signs Temperature 98.2 F 03/01/16 08:32 Pulse Rate 70 03/01/16 08:32 Respiratory Rate 18 03/01/16 08:32 Blood Pressure 113/53 03/01/16 08:32 O2 Sat by Pulse Oximetry (%) 94 L 03/01/16 10:00 Constitutional: Yes: Well Nourished, Calm Eyes: Yes: WNL HENT: Yes: WNL Neck: Yes: WNL Cardiovascular: Yes: Regular Rate and Rhythm, S1, S2 Respiratory: Yes: Diminished Gastrointestinal: Yes: Normal Bowel Sounds, Soft Extremities: Yes: WNL Edema: No Labs: CBC, BMP 03/01/16 05:38 03/01/16 05:38 INR, PTT INR 0.97 (0.82-1.09) 02/27/16 13:15 Assessment/Plan ASSESSMENT AND PLAN: Acute on Chronic LV Diastolic Heart Failure CAD r/o NSTEMI Acute COPD Exacerbation Influenza A Acute Kidney Injury - rate control with lopressor - monitor urine output, creatinine - anticoagulation per cardiology - continue medrol start taper - continue tamiflu - inhaled bronchodilators standing and as needed Problem List - Problems (1) Acute on chronic congestive heart failure with left ventricular diastolic dysfunction Code(s): I50.33 - ACUTE ON CHRONIC DIASTOLIC (CONGESTIVE) HEART FAILURE (2) CAD (coronary artery disease) Code(s): I25.10 - ATHSCL HEART DISEASE OF [place] CORONARY ARTERY W/O ANG PCTRS (3) Influenza A Code(s): J10.1 - FLU DUE TO OTH IDENT INFLUENZA VIRUS W OTH RESP MANIFEST (4) COPD exacerbation Code(s): J44.1 - CHRONIC OBSTRUCTIVE PULMONARY DISEASE W (ACUTE) EXACERBATION (5) HTN (hypertension) Code(s): I10 - ESSENTIAL (PRIMARY) HYPERTENSION (6) Elevated troponin Code(s): R79.89 - OTHER SPECIFIED ABNORMAL FINDINGS OF BLOOD CHEMISTRY
[2016-03-01] MEDS: SODIUM CHLORIDE 1,000 ML IV SCH ×2 (15:14→16:11)
--- NOTE | 2016-03-01 15:17 | CONSULT ---
Consult - text type - Consultation Consultation Note: Renal Consult for DAVID This is a 85 year old Gentleman with PMhx of CAD s/p stents, Prostate Ca s/p prostatectomy, Colon Ca s/p colectomy, hypertension, chronic anemia who presented with sob and fever and found to have influenza A and subendocardial ischemia who developed DAVID with BUN/Cr of 82/2.8. Pt s/p IV Lasix on presentation for HF. Pt was also on Diovan (last dose given today). Pt reports that he has some difficutly voiding but is making his regular amount of urine. No hematuria or dark urine. No NSAID use. No flank pain. No Abx. STarted on IVF. No LE edema. No chest pain or sob at the present time. PMhx: as above Allergies: NKDA Family Hx: NC Social hx: NO T/A/D ROS: as per HPI Home Meds: Medication Instructions Recorded Amlodipine Besylate [Norvasc] 10 mg PO DAILY 12/05/11 Aspirin Coated [Ecotrin] 81 mg PO DAILY 12/05/11 Ferrous Fumarate [Iron] 65 mg PO DAILY 12/05/11 Magnesium 250 mg PO HS 12/05/11 Metoprolol/Hydrochlorothiazide 1 each PO HS 12/05/11 [Metoprolol-Hctz 50-25 mg Tab] Simvastatin [Zocor] 20 mg PO HS 12/05/11 Cyanocobalamin (Vitamin B-12) 1,000 mcg PO SUWEFR 02/26/16 [Vitamin B-12] Vital Signs Temperature 98.0 F 03/01/16 14:00 Pulse Rate 74 03/01/16 14:00 Respiratory Rate 18 03/01/16 14:00 Blood Pressure 101/49 03/01/16 14:00 O2 Sat by Pulse Oximetry (%) 94 L 03/01/16 10:00 Intake & Output 02/27/16 02/28/16 02/29/16 03/01/16 23:59 23:59 23:59 23:59 Intake Total 724 1364 1848 0 Output Total 1550 900 450 Balance -839 933 5020 0 Weight 123 lb 118 lb 2 oz 121 lb 2 oz Gen: NAD, awake and alert on NC HEENT: NC/AT, Dry MM, NO JVD CVS: RRR, No m/R LUngs: Dec BS at lung bases but No rales or wheeze Abd: soft NT/ND Ext: No edema, clubbing or cyanosis : No bladder distension Neuro: AAOx3, no focal defects CBC, BMP 03/01/16 05:38 03/01/16 05:38 Laboratory Tests 02/28/16 02/28/16 02/28/16 05:05 05:05 17:30 MCV Calcium Phosphorus Magnesium Troponin I 1.20 H* D B-Natriuretic Peptide 6166.97 H Urine Creatinine 35.8 02/29/16 03/01/16 03/01/16 05:35 05:38 05:38 MCV 96.7 H Calcium 8.0 L Phosphorus 6.1 H Magnesium 2.0 Troponin I 0.51 H D B-Natriuretic Peptide Urine Creatinine Current Medications Acetaminophen (Tylenol -) 650 mg PO Q4H PRN PRN Reason: FEVER OR PAIN Al Hydroxide/Mg Hydroxide (Mylanta Oral Suspension -) 30 ml PO Q6H PRN PRN Reason: DYSPEPSIA Albuterol Sulfate (Ventolin 0.083% Nebulizer Soln -) 1 amp NEB Q4H PRN PRN Reason: SHORT OF BREATH/WHEEZING Albuterol/Ipratropium (Duoneb -) 1 amp NEB QIDR [facility] Last Admin: 03/01/16 11:10 Dose: 1 amp Amlodipine Besylate (Norvasc -) 5 mg PO DAILY [facility] Last Admin: 03/01/16 09:49 Dose: 5 mg Aspirin (Ecotrin -) 81 mg PO DAILY [facility] Last Admin: 03/01/16 09:49 Dose: 81 mg Atorvastatin Calcium (Lipitor -) 80 mg PO HS [facility] Last Admin: 02/29/16 21:11 Dose: 80 mg Clopidogrel Bisulfate (Plavix -) 75 mg PO DAILY [facility] Last Admin: 03/01/16 09:50 Dose: 75 mg Cyanocobalamin (Vitamin B12 -) 1,000 mcg PO DAILY [facility] Last Admin: 03/01/16 09:50 Dose: 1,000 mcg Guaifenesin (Mucinex -) 600 mg PO BID [facility] Last Admin: 03/01/16 09:50 Dose: 600 mg Heparin Sodium (Porcine) (Heparin -) 5,000 unit SQ BID [facility] Sodium Chloride (Normal Saline -) 1,000 mls @ 42 mls/hr IV ASDIR [facility] Last Admin: 03/01/16 15:14 Dose: 42 mls/hr Methylprednisolone Sodium Succinate (Solu-Medrol -) 40 mg IVPB Q6H-IV [facility] Last Admin: 03/01/16 14:50 Dose: 40 mg Metoprolol Tartrate (Lopressor -) 50 mg PO BID [facility] Last Admin: 03/01/16 09:49 Dose: 50 mg Oseltamivir Phosphate (Tamiflu -) 30 mg PO BID [facility] Last Admin: 03/01/16 11:34 Dose: 30 mg Pantoprazole Sodium (Protonix -) 40 mg PO DAILY [facility] Last Admin: 03/01/16 09:50 Dose: 40 mg Ranolazine (Ranexa -) 500 mg PO BID [facility] Last Admin: 03/01/16 09:50 Dose: 500 mg A/P 85 year old Gentleman with PMhx of CAD s/p stents, Prostate Ca s/p prostatectomy , Colon Ca s/p colectomy, hypertension, chronic anemia who presented with sob and fever and found to have influenza A and subendocardial ischemia who developed DAVID with BUN/Cr of 82/2.8. #Acute Kidney Injury in setting of IV diuresis and ARB -> renal hypoperfusion +/ - ATN Check FeUrea, FeNA, UPCR, Urine Legionella Antigen Increase IVF rate to 100cc per hour (pt hypovolemic at the present time (high BUN/cr ratio, low BP) Hold ARB and diuretics Trend BUN/cr daily avoid NSAID Dose all meds for Cr Cl less then 20 No indication for [employer] #Influenza A on Tamiflu ( dose to 30mg once daily because of renal insufficiency) supportive care #ACS/HF pt not in decompensated HF at this time monitor resp status closely while on IVF Cardiology following #Hx of Hypertension now with marginal BP hold amlodipine and ARB continue metoprolol Thank you Will follow Lewis Vergara DO
[2016-03-01] MEDS ORDERED: ACETAMINOPHEN 325 MG TABLET (FP) PO PRN (15:36)
[2016-03-01] MEDS ORDERED: HEPARIN NA (PORCINE) 5,000 UNITS/ML 1ML VIAL IVPUSH PRN ×2 (15:36)
[2016-03-01] MEDS ORDERED: ALBUTEROL SO4 0.083% IH SOL 2.5 MG/3 ML VIAL.NEB. NEB PRN (15:36)
--- NOTE | 2016-03-01 16:23 | PN ---
Progress Note, Physician Chief Complaint: Mr Briscoe says he is feeling much improved today. Says his breathing is better and he is having a productive cough. No cp or n/v. - Current Medication List Current Medications: Active Medications Acetaminophen (Tylenol -) 650 mg PO Q4H PRN PRN Reason: FEVER OR PAIN Al Hydroxide/Mg Hydroxide (Mylanta Oral Suspension -) 30 ml PO Q6H PRN PRN Reason: DYSPEPSIA Albuterol Sulfate (Ventolin 0.083% Nebulizer Soln -) 1 amp NEB Q4H PRN PRN Reason: SHORT OF BREATH/WHEEZING Albuterol/Ipratropium (Duoneb -) 1 amp NEB QIDR [facility] Amlodipine Besylate (Norvasc -) 5 mg PO DAILY [facility] Aspirin (Ecotrin -) 81 mg PO DAILY [facility] Atorvastatin Calcium (Lipitor -) 80 mg PO HS [facility] Clopidogrel Bisulfate (Plavix -) 75 mg PO DAILY [facility] Cyanocobalamin (Vitamin B12 -) 1,000 mcg PO DAILY [facility] Guaifenesin (Mucinex -) 600 mg PO BID [facility] Last Admin: 03/01/16 09:50 Dose: 600 mg Heparin Sodium (Porcine) (Heparin -) 5,000 unit SQ BID [facility] Sodium Chloride (Normal Saline -) 1,000 mls @ 100 mls/hr IV ASDIR [facility] Last Admin: 03/01/16 16:11 Dose: 100 mls/hr Methylprednisolone Sodium Succinate (Solu-Medrol -) 40 mg IVPB Q6H-IV [facility] Metoprolol Tartrate (Lopressor -) 50 mg PO BID [facility] Oseltamivir Phosphate (Tamiflu -) 30 mg PO DAILY [facility] Pantoprazole Sodium (Protonix -) 40 mg PO DAILY [facility] Ranolazine (Ranexa -) 500 mg PO BID [facility] - Objective Vital Signs: Vital Signs Temperature 98.0 F 03/01/16 14:00 Pulse Rate 74 03/01/16 14:00 Respiratory Rate 18 03/01/16 14:00 Blood Pressure 101/49 03/01/16 14:00 O2 Sat by Pulse Oximetry (%) 94 L 03/01/16 10:00 Constitutional: Yes: Well Nourished, No Distress, Calm Cardiovascular: Yes: Regular Rate and Rhythm. No: Gallop, Murmur, Rub Respiratory: Yes: Regular, On Nasal O2, Rhonchi, Wheezes Gastrointestinal: Yes: Normal Bowel Sounds, Soft. No: Distention, Tenderness Extremities: Yes: WNL Edema: No Labs: CBC, BMP 03/01/16 05:38 03/01/16 05:38 INR, PTT INR 0.97 (0.82-1.09) 02/27/16 13:15 Problem List - Problems (1) NSTEMI (non-ST elevated myocardial infarction) Code(s): I21.4 - NON-ST ELEVATION (NSTEMI) MYOCARDIAL INFARCTION (2) Acute on chronic congestive heart failure with left ventricular diastolic dysfunction Code(s): I50.33 - ACUTE ON CHRONIC DIASTOLIC (CONGESTIVE) HEART FAILURE (3) Influenza A Code(s): J10.1 - FLU DUE TO OTH IDENT INFLUENZA VIRUS W OTH RESP MANIFEST (4) Asthma exacerbation Code(s): J45.901 - UNSPECIFIED ASTHMA WITH (ACUTE) EXACERBATION (5) CAD (coronary artery disease) Code(s): I25.10 - ATHSCL HEART DISEASE OF [place] CORONARY ARTERY W/O ANG PCTRS Qualifiers: Coronary Disease-Associated Artery/Lesion type: [place] artery [place] vs. transplanted heart: [place] heart Associated angina: without angina Qualified Code(s): I25.10 - Atherosclerotic heart disease of [place] coronary artery without angina pectoris (6) HTN (hypertension) Code(s): I10 - ESSENTIAL (PRIMARY) HYPERTENSION Qualifiers: Hypertension type: essential hypertension Qualified Code(s): I10 - Essential (primary) hypertension (7) HLD (hyperlipidemia) Code(s): E78.5 - HYPERLIPIDEMIA, UNSPECIFIED Qualifiers: Hyperlipidemia type: pure hypercholesterolemia Qualified Code(s): E78.0 - Pure hypercholesterolemia (8) DAVID (acute kidney injury) Code(s): N17.9 - ACUTE KIDNEY FAILURE, UNSPECIFIED Assessment/Plan (1) NSTEMI (non-ST elevated myocardial infarction) -appreciate cardiology assistance -continue metoprolol and statin -ranexa, aspirin, and plavix started this admission -continue heparin gtt -cardiology to decide on cardiac cath Code(s): I21.4 - NON-ST ELEVATION (NSTEMI) MYOCARDIAL INFARCTION (2) Acute on chronic congestive heart failure with left ventricular diastolic dysfunction -IV lasix stopped secondary to renal function -ECHO results reviewed -cardiology following Code(s): I50.33 - ACUTE ON CHRONIC DIASTOLIC (CONGESTIVE) HEART FAILURE (3) Influenza A Assessment/Plan: -continue tamiflu 30mg bid, renally dosed. Day 4 Code(s): J10.1 - FLU DUE TO OTH IDENT INFLUENZA VIRUS W OTH RESP MANIFEST (4) Asthma exacerbation with acute respiratory failure Assessment/Plan: -pulmonary following -continue oxygen -continue duonebs and steroids Code(s): J45.901 - UNSPECIFIED ASTHMA WITH (ACUTE) EXACERBATION (5) CAD (coronary artery disease) Assessment/Plan: -as above Code(s): I25.10 - ATHSCL HEART DISEASE OF [place] CORONARY ARTERY W/O ANG PCTRS (6) HTN (hypertension) Assessment/Plan: -continue norvasc and metoprolol -cozaar stopped secondary to renal function Code(s): I10 - ESSENTIAL (PRIMARY) HYPERTENSION (7) HLD (hyperlipidemia) Assessment/Plan: -continue statin Code(s): E78.5 - HYPERLIPIDEMIA, UNSPECIFIED (8) DAVID (acute kidney injury) -continues to worsen -cozaar and lasix stopped -case d/w Dr Vergara who will see in consultation -increase rate of fluid -monitor for improvement Code(s): N17.9 - ACUTE KIDNEY FAILURE, UNSPECIFIED
[2016-03-01 18:02] LABS: MCH 32.2 pg (25.7-33.7); MCHC 33.4 g/dl (32.0-35.9); MEAN CELL VOLUME 96.4 fl (80-96); MEAN PLT VOLUME 9.1 fl (7.5-11.1); PLATELET COUNT 245 K/MM3 (134-434); RDW 12.7 % (11.9-15.9); WHITE BLOOD COUNT 11.7 K/mm3 (4.0-10.0)
[2016-03-01] MEDS: ATORVASTATIN CA 80 MG TABLET (FP) PO SCH (21:55)
[2016-03-01 21:56] LABS: URINE APPEARANCE CLEAR; URINE BILIRUBIN NEGATIVE (NEGATIVE); URINE BLOOD NEGATIVE (NEGATIVE); URINE COLOR YELLOW; URINE GLUCOSE (UA) NEGATIVE (NEGATIVE); URINE KETONE NEGATIVE (NEGATIVE); URINE LEUK ESTERASE NEGATIVE (NEGATIVE); URINE NITRITE NEGATIVE (NEGATIVE); URINE PROTEIN NEGATIVE (NEGATIVE); URINE UROBILINOGEN NEGATIVE E.U./dl (0.2-1.0)
[2016-03-01] MEDS: HEPARIN NA (PORCINE) 5,000 UNITS/ML 1ML VIAL SQ SCH (21:58)
[2016-03-02] MEDS: SODIUM CHLORIDE 1,000 ML IV SCH ×4 (02:19→22:36)
[2016-03-02] MEDS: methylPREDNISolone NA SUCC 40 MG/1 ML VIAL IVPB SCH ×4 (02:19→21:39)
[2016-03-02] MEDS: ALBUTEROL SO4 2.5/IPRATROPIUM 0.5 INH SOL 3 ML VIAL.NEB. NEB SCH ×3 (06:05→17:38)
[2016-03-02 07:17] LABS: MCH 32.7 pg (25.7-33.7); MCHC 33.8 g/dl (32.0-35.9); MEAN CELL VOLUME 96.7 fl (80-96); MEAN PLT VOLUME 9.2 fl (7.5-11.1); PLATELET COUNT 165 K/MM3 (134-434); RDW 12.4 % (11.9-15.9); WHITE BLOOD COUNT 9.8 K/mm3 (4.0-10.0)
[2016-03-02 07:39] LABS: CALCIUM 7.5 mg/dL (8.5-10.1); CREATININE 2.3 mg/dL (0.7-1.3); PHOSPHOROUS 4.1 mg/dL (2.5-4.9)
[2016-03-02 07:48] LABS: THYROID STIMULATING HORMONE 0.19 uIU/ml (0.358-3.74)
--- NOTE | 2016-03-02 09:12 | PN ---
Progress Note (short form) - Note Progress Note: Renal Follow up for DAVID Pt seen and examined at the bedside complains of fatigue, slow voiding denies any sob, chest pain, N/V/D Vital Signs Temperature 97.9 F 03/02/16 06:00 Pulse Rate 66 03/02/16 06:00 Respiratory Rate 16 03/02/16 06:00 Blood Pressure 118/61 03/02/16 06:00 O2 Sat by Pulse Oximetry (%) 96 03/02/16 03:17 Intake & Output 02/28/16 02/29/16 03/01/16 03/02/16 23:59 23:59 23:59 23:59 Intake Total 1364 1848 1430 1200 Output Total 900 450 400 Balance 464 1398 1030 1200 Weight 118 lb 2 oz 121 lb 2 oz Gen: NAD, awake and alert on NC CVS: RRR, No m/R LUngs: Dec BS at lung bases but No rales or wheeze Abd: soft NT/ND Ext: No edema, clubbing or cyanosis Gu: No bladder distension CBC, BMP 03/01/16 05:38 03/01/16 05:38 Laboratory Tests 02/28/16 02/28/16 02/28/16 05:05 05:05 17:30 MCV Calcium Phosphorus Magnesium Troponin I 1.20 H* D B-Natriuretic Peptide 6166.97 H Urine Creatinine 35.8 02/29/16 03/01/16 03/01/16 05:35 05:38 05:38 MCV 96.7 H Calcium 8.0 L Phosphorus 6.1 H Magnesium 2.0 Troponin I 0.51 H D B-Natriuretic Peptide Urine Creatinine Current Medications Acetaminophen (Tylenol -) 650 mg PO Q4H PRN PRN Reason: FEVER OR PAIN Al Hydroxide/Mg Hydroxide (Mylanta Oral Suspension -) 30 ml PO Q6H PRN PRN Reason: DYSPEPSIA Albuterol Sulfate (Ventolin 0.083% Nebulizer Soln -) 1 amp NEB Q4H PRN PRN Reason: SHORT OF BREATH/WHEEZING Albuterol/Ipratropium (Duoneb -) 1 amp NEB QIDR [facility] Last Admin: 03/01/16 11:10 Dose: 1 amp Amlodipine Besylate (Norvasc -) 5 mg PO DAILY [facility] Last Admin: 01/20/17 09:49 Dose: 5 mg Aspirin (Ecotrin -) 81 mg PO DAILY [facility] Last Admin: 03/01/16 09:49 Dose: 81 mg Atorvastatin Calcium (Lipitor -) 80 mg PO HS [facility] Last Admin: 02/29/16 21:11 Dose: 80 mg Clopidogrel Bisulfate (Plavix -) 75 mg PO DAILY [facility] Last Admin: 03/01/16 09:50 Dose: 75 mg Cyanocobalamin (Vitamin B12 -) 1,000 mcg PO DAILY [facility] Last Admin: 03/01/16 09:50 Dose: 1,000 mcg Guaifenesin (Mucinex -) 600 mg PO BID [facility] Last Admin: 03/01/16 09:50 Dose: 600 mg Heparin Sodium (Porcine) (Heparin -) 5,000 unit SQ BID [facility] Sodium Chloride (Normal Saline -) 1,000 mls @ 42 mls/hr IV ASDIR [facility] Last Admin: 03/01/16 15:14 Dose: 42 mls/hr Methylprednisolone Sodium Succinate (Solu-Medrol -) 40 mg IVPB Q6H-IV [facility] Last Admin: 03/01/16 14:50 Dose: 40 mg Metoprolol Tartrate (Lopressor -) 50 mg PO BID [facility] Last Admin: 03/01/16 09:49 Dose: 50 mg Oseltamivir Phosphate (Tamiflu -) 30 mg PO BID [facility] Last Admin: 03/01/16 11:34 Dose: 30 mg Pantoprazole Sodium (Protonix -) 40 mg PO DAILY [facility] Last Admin: 03/01/16 09:50 Dose: 40 mg Ranolazine (Ranexa -) 500 mg PO BID [facility] Last Admin: 03/01/16 09:50 Dose: 500 mg A/P 85 year old Gentleman with PMhx of CAD s/p stents, Prostate Ca s/p prostatectomy , Colon Ca s/p colectomy, hypertension, chronic anemia who presented with sob and fever and found to have influenza A and subendocardial ischemia who developed DAVID with BUN/Cr of 82/2.8. #Non-Oliguric Acute Kidney Injury in setting of IV diuresis and ARB -> ATN Renal function improving Urine studies show FeUrea of 43% consistent with ATN No significant proteinuria noted Continue IVF, decrease rate to 82cc per hour Start Flomax for difficulty voiding Bladder scan to r/o significant retention no indication for SPLITTER HAND Strict I and O avoid JUN/ARB, NSAIDs, Contrast for now #Influenza A on Tamiflu ( dose to 30mg once daily because of renal insufficiency) supportive care #ACS/HF pt not in decompensated HF at this time monitor resp status closely while on IVF Cardiology following #Hx of Hypertension now with marginal BP hold amlodipine and ARB continue metoprolol Thank you Will follow Lewis Vergara DO
[2016-03-02] MEDS ORDERED: PT OWN MED DRAWER 7, Y5N ONE (09:30)
[2016-03-02] MEDS: HEPARIN NA (PORCINE) 5,000 UNITS/ML 1ML VIAL SQ SCH ×2 (09:39→21:39)
[2016-03-02] MEDS: METOPROLOL TARTRATE 50 MG TABLET (FP) PO SCH ×2 (09:39→21:40)
[2016-03-02] MEDS: TAMSULOSIN HCL 0.4 MG CAP.ER.24H (FP) PO SCH (09:39)
[2016-03-02] MEDS: PANTOPRAZOLE 40 MG TABLET (FP) PO SCH (09:39)
[2016-03-02] MEDS: amLODIPine BESYLATE 5 MG TABLET (FP) PO SCH (09:39)
[2016-03-02] MEDS: CLOPIDOGREL BISULFATE 75 MG TABLET (FP) PO SCH (09:40)
[2016-03-02] MEDS: guaiFENesin 600 MG TABLET.ER (FP) PO SCH ×2 (09:40→21:39)
[2016-03-02] MEDS: ASPIRIN COATED 81 MG TABLET.EC PO SCH (09:40)
[2016-03-02] MEDS: RANOLAZINE E.R. 500 MG TABLET (FP) PO SCH ×2 (09:40→21:39)
[2016-03-02] MEDS: CYANOCOBALAMIN 1,000 MCG TABLET (FP) PO SCH (09:40)
[2016-03-02] MEDS: OSELTAMIVIR PHOSPHATE 30 MG CAPSULE PO SCH (09:45)
--- NOTE | 2016-03-02 10:21 | PN ---
Progress Note, Physician History of Present Illness: Feeling a little better, but still coughing. Notes also having urinary retention. Sees Dr Gan as an outpatient for BPH. - Current Medication List Current Medications: Active Medications Acetaminophen (Tylenol -) 650 mg PO Q4H PRN PRN Reason: FEVER OR PAIN Al Hydroxide/Mg Hydroxide (Mylanta Oral Suspension -) 30 ml PO Q6H PRN PRN Reason: DYSPEPSIA Albuterol Sulfate (Ventolin 0.083% Nebulizer Soln -) 1 amp NEB Q4H PRN PRN Reason: SHORT OF BREATH/WHEEZING Albuterol/Ipratropium (Duoneb -) 1 amp NEB QIDR [facility] Last Admin: 03/02/16 06:05 Dose: 1 amp Amlodipine Besylate (Norvasc -) 5 mg PO DAILY [facility] Last Admin: 03/02/16 09:39 Dose: 5 mg Aspirin (Ecotrin -) 81 mg PO DAILY [facility] Last Admin: 03/02/16 09:40 Dose: 81 mg Atorvastatin Calcium (Lipitor -) 80 mg PO HS [facility] Last Admin: 03/01/16 21:55 Dose: 80 mg Clopidogrel Bisulfate (Plavix -) 75 mg PO DAILY [facility] Last Admin: 03/02/16 09:40 Dose: 75 mg Cyanocobalamin (Vitamin B12 -) 1,000 mcg PO DAILY [facility] Last Admin: 03/02/16 09:40 Dose: 1,000 mcg Guaifenesin (Mucinex -) 600 mg PO BID [facility] Last Admin: 03/02/16 09:40 Dose: 600 mg Heparin Sodium (Porcine) (Heparin -) 5,000 unit SQ BID [facility] Last Admin: 03/02/16 09:39 Dose: 5,000 unit Sodium Chloride (Normal Saline -) 1,000 mls @ 82 mls/hr IV ASDIR [facility] Last Admin: 03/02/16 09:40 Dose: 82 mls/hr Methylprednisolone Sodium Succinate (Solu-Medrol -) 40 mg IVPB Q6H-IV [facility] Last Admin: 03/02/16 09:39 Dose: 40 mg Metoprolol Tartrate (Lopressor -) 50 mg PO BID [facility] Last Admin: 03/02/16 09:39 Dose: 50 mg Oseltamivir Phosphate (Tamiflu -) 30 mg PO DAILY [facility] Last Admin: 03/02/16 09:45 Dose: 30 mg Pantoprazole Sodium (Protonix -) 40 mg PO DAILY [facility] Last Admin: 03/02/16 09:39 Dose: 40 mg Ranolazine (Ranexa -) 500 mg PO BID [facility] Last Admin: 03/02/16 09:40 Dose: 500 mg Tamsulosin HCl (Flomax -) 0.4 mg PO DAILY@0830 [facility] Last Admin: 03/02/16 09:39 Dose: 0.4 mg - Objective Vital Signs: Vital Signs Temperature 97.9 F 03/02/16 06:00 Pulse Rate 70 03/02/16 09:46 Respiratory Rate 18 03/02/16 09:46 Blood Pressure 134/60 03/02/16 09:46 O2 Sat by Pulse Oximetry (%) 96 03/02/16 03:17 Constitutional: Yes: No Distress, Calm Neck: Yes: Supple, Trachea Midline Cardiovascular: Yes: Regular Rate and Rhythm, S1, S2. No: Murmur Respiratory: Yes: Regular, Rhonchi (bilaterally) Gastrointestinal: Yes: Normal Bowel Sounds, Soft. 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
--- NOTE | 2016-03-02 11:21 | PN ---
Progress Note, Physician Chief Complaint: Events noted Complains of cough and congestion, but getting better History of Present Illness: Patient was seen and examined. Awake and alert. Chart was reviewed Still with cough and mucous. Denies chest pain or palpitation. Breathing better this am Still with renal insufficiency - Current Medication List Current Medications: Active Medications Acetaminophen (Tylenol -) 650 mg PO Q4H PRN PRN Reason: FEVER OR PAIN Al Hydroxide/Mg Hydroxide (Mylanta Oral Suspension -) 30 ml PO Q6H PRN PRN Reason: DYSPEPSIA Albuterol Sulfate (Ventolin 0.083% Nebulizer Soln -) 1 amp NEB Q4H PRN PRN Reason: SHORT OF BREATH/WHEEZING Albuterol/Ipratropium (Duoneb -) 1 amp NEB QIDR [facility] Last Admin: 03/02/16 06:05 Dose: 1 amp Amlodipine Besylate (Norvasc -) 5 mg PO DAILY [facility] Last Admin: 03/02/16 09:39 Dose: 5 mg Aspirin (Ecotrin -) 81 mg PO DAILY [facility] Last Admin: 03/02/16 09:40 Dose: 81 mg Atorvastatin Calcium (Lipitor -) 80 mg PO HS [facility] Last Admin: 03/01/16 21:55 Dose: 80 mg Clopidogrel Bisulfate (Plavix -) 75 mg PO DAILY [facility] Last Admin: 03/02/16 09:40 Dose: 75 mg Cyanocobalamin (Vitamin B12 -) 1,000 mcg PO DAILY [facility] Last Admin: 03/02/16 09:40 Dose: 1,000 mcg Guaifenesin (Mucinex -) 600 mg PO BID [facility] Last Admin: 03/02/16 09:40 Dose: 600 mg Heparin Sodium (Porcine) (Heparin -) 5,000 unit SQ BID [facility] Last Admin: 03/02/16 09:39 Dose: 5,000 unit Sodium Chloride (Normal Saline -) 1,000 mls @ 82 mls/hr IV ASDIR [facility] Last Admin: 03/02/16 09:40 Dose: 82 mls/hr Methylprednisolone Sodium Succinate (Solu-Medrol -) 40 mg IVPB Q6H-IV [facility] Last Admin: 03/02/16 09:39 Dose: 40 mg Metoprolol Tartrate (Lopressor -) 50 mg PO BID [facility] Last Admin: 03/02/16 09:39 Dose: 50 mg Oseltamivir Phosphate (Tamiflu -) 30 mg PO DAILY [facility] Last Admin: 03/02/16 09:45 Dose: 30 mg Pantoprazole Sodium (Protonix -) 40 mg PO DAILY [facility] Last Admin: 03/02/16 09:39 Dose: 40 mg Ranolazine (Ranexa -) 500 mg PO BID [facility] Last Admin: 03/02/16 09:40 Dose: 500 mg Tamsulosin HCl (Flomax -) 0.4 mg PO DAILY@0830 [facility] Last Admin: 03/02/16 09:39 Dose: 0.4 mg - Objective Vital Signs: Vital Signs Temperature 97.9 F 03/02/16 06:00 Pulse Rate 70 03/02/16 09:46 Respiratory Rate 18 03/02/16 09:46 Blood Pressure 134/60 03/02/16 09:46 O2 Sat by Pulse Oximetry (%) 96 03/02/16 03:17 Neck: Yes: Supple Cardiovascular: Yes: Regular Rate and Rhythm, Murmur (Soft SM), S1, S2 Respiratory: Yes: Diminished, Rhonchi Gastrointestinal: Yes: Normal Bowel Sounds, Soft. 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 transplanted heart: [place] heart Associated angina: without angina Qualified Code(s): I25.10 - Atherosclerotic heart disease of [place] coronary artery without angina pectoris (3) Elevated troponin Code(s): R79.89 - OTHER SPECIFIED ABNORMAL FINDINGS OF BLOOD CHEMISTRY (4) HLD (hyperlipidemia) Code(s): E78.5 - HYPERLIPIDEMIA, UNSPECIFIED Qualifiers: Hyperlipidemia type: pure hypercholesterolemia Qualified Code(s): E78.0 - Pure hypercholesterolemia (5) HTN (hypertension) Code(s): I10 - ESSENTIAL (PRIMARY) HYPERTENSION Qualifiers: Hypertension type: essential hypertension Qualified Code(s): I10 - Essential (primary) hypertension (6) Influenza A Code(s): J10.1 - FLU DUE TO OTH IDENT INFLUENZA VIRUS W OTH RESP MANIFEST (7) NSTEMI (non-ST elevated myocardial infarction) Code(s): I21.4 - NON-ST ELEVATION (NSTEMI) MYOCARDIAL INFARCTION (8) History of percutaneous coronary intervention Code(s): Z98.89 - OTHER SPECIFIED POSTPROCEDURAL STATES * DO NOT USE * Assessment/Plan 1. Clinical presentation is consistent with acute systolic/diastolic LV dysfunction with class III-IV NYHA classification LV failure, precipitated by acute ischemia 2. CAD post PCI/stent angina pectoris with evidence of NSTEMI 3. HTN 4. Hypercholesterolemia 5. Influenza, acute 6. Anemia 7. History of CKD PLAN: 1. Continue ASA and Plavix 2. Continue Lopressor 50 mg BID, titrate dosage as tolerated, continue Norvasc 5 mg QD 3. Continue Diovan as tolerated 4. Continue Ranexa 500 mg BID as tolerated 5. Continue Lipitor 6. patient is on Tamiflu 7. Considering the above noted clinical presentation would recommend early right and left heart catheterization/coronary angiography once LV failure class and influenza improves and renal function stabilizes Further plans are to follow. Above fully explained to patient and he understands Piero Ruiz MD
--- NOTE | 2016-03-02 11:37 | PN ---
Progress Note, Physician History of Present Illness: pulmonary alert,oob-chair,less dyspneic - Current Medication List Current Medications: Active Medications Acetaminophen (Tylenol -) 650 mg PO Q4H PRN PRN Reason: FEVER OR PAIN Al Hydroxide/Mg Hydroxide (Mylanta Oral Suspension -) 30 ml PO Q6H PRN PRN Reason: DYSPEPSIA Albuterol Sulfate (Ventolin 0.083% Nebulizer Soln -) 1 amp NEB Q4H PRN PRN Reason: SHORT OF BREATH/WHEEZING Albuterol/Ipratropium (Duoneb -) 1 amp NEB QIDR [facility] Last Admin: 03/02/16 11:27 Dose: 1 amp Amlodipine Besylate (Norvasc -) 5 mg PO DAILY [facility] Last Admin: 03/02/16 09:39 Dose: 5 mg Aspirin (Ecotrin -) 81 mg PO DAILY [facility] Last Admin: 03/02/16 09:40 Dose: 81 mg Atorvastatin Calcium (Lipitor -) 80 mg PO HS [facility] Last Admin: 03/01/16 21:55 Dose: 80 mg Clopidogrel Bisulfate (Plavix -) 75 mg PO DAILY [facility] Last Admin: 03/02/16 09:40 Dose: 75 mg Cyanocobalamin (Vitamin B12 -) 1,000 mcg PO DAILY [facility] Last Admin: 03/02/16 09:40 Dose: 1,000 mcg Guaifenesin (Mucinex -) 600 mg PO BID [facility] Last Admin: 03/02/16 09:40 Dose: 600 mg Heparin Sodium (Porcine) (Heparin -) 5,000 unit SQ BID [facility] Last Admin: 03/02/16 09:39 Dose: 5,000 unit Sodium Chloride (Normal Saline -) 1,000 mls @ 82 mls/hr IV ASDIR [facility] Last Admin: 03/02/16 11:27 Dose: 82 mls/hr Methylprednisolone Sodium Succinate (Solu-Medrol -) 40 mg IVPB Q6H-IV [facility] Last Admin: 03/02/16 09:39 Dose: 40 mg Metoprolol Tartrate (Lopressor -) 50 mg PO BID [facility] Last Admin: 03/02/16 09:39 Dose: 50 mg Oseltamivir Phosphate (Tamiflu -) 30 mg PO DAILY [facility] Last Admin: 03/02/16 09:45 Dose: 30 mg Pantoprazole Sodium (Protonix -) 40 mg PO DAILY [facility] Last Admin: 03/02/16 09:39 Dose: 40 mg Ranolazine (Ranexa -) 500 mg PO BID [facility] Last Admin: 03/02/16 09:40 Dose: 500 mg Tamsulosin HCl (Flomax -) 0.4 mg PO DAILY@0830 [facility] Last Admin: 03/02/16 09:39 Dose: 0.4 mg - Objective Vital Signs: Vital Signs Temperature 97.9 F 03/02/16 06:00 Pulse Rate 70 03/02/16 09:46 Respiratory Rate 18 03/02/16 09:46 Blood Pressure 134/60 03/02/16 09:46 O2 Sat by Pulse Oximetry (%) 96 03/02/16 03:17 Constitutional: Yes: Well Nourished, Calm Eyes: Yes: WNL HENT: Yes: WNL Neck: Yes: WNL Cardiovascular: Yes: Regular Rate and Rhythm, S1, S2 Respiratory: Yes: Wheezes (scattered siva wheezes) Gastrointestinal: Yes: Normal Bowel Sounds, Soft Extremities: Yes: WNL Edema: No Labs: CBC, BMP 03/02/16 05:30 03/02/16 05:30 INR, PTT INR 0.97 (0.82-1.09) 02/27/16 13:15 Assessment/Plan ASSESSMENT AND PLAN: Acute on Chronic LV Diastolic Heart Failure CAD r/o NSTEMI Acute COPD Exacerbation Influenza A Acute Kidney Injury - lopressor - monitor urine output, creatinine - continue medrol taper - continue tamiflu - inhaled bronchodilators standing and as needed Problem List - Problems (1) Acute on 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
--- NOTE | 2016-03-02 12:30 | CONSULT ---
Consult Consult Specialty:: urology Reason for Consultation:: 85 year old with difficulty urinating - History of Present Illness Chief Complaint: urinary retention History of Present Illness: 85 year old man with a history of prostate cancer treated with radical prostatectomy and adjuvant radiotherapy in 2005 who reports a slowing of his urinary stream recently. During this admission he was unable to void but this has now improved. - History Source History Provided By: Patient Limitations to Obtaining History: No Limitations - Past Medical History Cardio/Vascular: Yes: CAD, HTN, Hyperlipdemia Renal/: Yes: Cancer - Past Surgical History Past Surgical History: Yes: Colectomy, Stent, TURP - Alcohol/Substance Use Hx Alcohol Use: No History of Substance Use: reports: None - Smoking History Smoking history: Former smoker Have you smoked in the past 12 months: No If you are a former smoker, when did you quit?: 45 YRS AGO - Social History ADL: Independent History of Recent Travel: No Home Medications - Allergies Allergies/Adverse Reactions: Allergies Allergy/AdvReac Type Severity Reaction Status Date / Time No Known Allergies Allergy Verified 02/26/16 14:21 - Home Medications Home Medications: Ambulatory Orders Amlodipine Besylate [Norvasc] 10 mg PO DAILY 12/05/11 Aspirin Coated [Ecotrin] 81 mg PO DAILY 12/05/11 Ferrous Fumarate [Iron] 65 mg PO DAILY 12/05/11 Magnesium 250 mg PO HS 12/05/11 Metoprolol/Hydrochlorothiazide [Metoprolol-Hctz 50-25 mg Tab] 1 each PO HS 12/04 Simvastatin [Zocor] 20 mg PO HS 12/05/11 Cyanocobalamin (Vitamin B-12) [Vitamin B-12] 1,000 mcg PO SUWEFR 02/26/16 Family Disease History - Family Disease History Family Disease History: Heart Disease: Mother (CHF), Other: Father (kidney disease) Review of Systems - Review of Systems Genitourinary: reports: Frequency, Urgency Physical Exam Vital Signs: Vital Signs Temperature 97.9 F 03/02/16 06:00 Pulse Rate 70 03/02/16 09:46 Respiratory Rate 18 03/02/16 09:46 Blood Pressure 134/60 03/02/16 09:46 O2 Sat by Pulse Oximetry (%) 96 03/02/16 03:17 Renal/: No: Bladder Distention, CVA Tenderness - Left, CVA Tenderness - Right , Elliott Present, Hematuria Labs: CBC, BMP 03/02/16 05:30 03/02/16 05:30 Problem List - Problems (1) Urinary retention with incomplete bladder emptying Assessment/Plan: Slowing of urinary stream which is now improving. No other intervention at this time. Patient asked to follow up in office with Dr. Gan after hospital discharge Code(s): R33.9 - RETENTION OF URINE, UNSPECIFIED
[2016-03-02 14:57] LABS: MCHC 32.9 g/dl (32.0-35.9); MEAN CELL VOLUME 97.3 fl (80-96); MEAN PLT VOLUME 8.7 fl (7.5-11.1); PLATELET COUNT 182 K/MM3 (134-434); RDW 12.4 % (11.9-15.9); WHITE BLOOD COUNT 11.9 K/mm3 (4.0-10.0)
[2016-03-02] MEDS: ATORVASTATIN CA 80 MG TABLET (FP) PO SCH (21:40)
[2016-03-03] MEDS: methylPREDNISolone NA SUCC 40 MG/1 ML VIAL IVPB SCH ×3 (02:21→17:30)
[2016-03-03] MEDS: ALBUTEROL SO4 2.5/IPRATROPIUM 0.5 INH SOL 3 ML VIAL.NEB. NEB SCH ×4 (06:37→17:33)
[2016-03-03 07:07] LABS: MCH 32.4 pg (25.7-33.7); MCHC 33.3 g/dl (32.0-35.9); MEAN CELL VOLUME 97.3 fl (80-96); PLATELET COUNT 163 K/MM3 (134-434); RDW 12.3 % (11.9-15.9); WHITE BLOOD COUNT 11.6 K/mm3 (4.0-10.0)
[2016-03-03 07:48] LABS: CALCIUM 7.9 mg/dL (8.5-10.1); CREATININE 1.9 mg/dL (0.7-1.3); MAGNESIUM 1.9 mg/dL (1.8-2.4)
--- NOTE | 2016-03-03 09:21 | PN ---
Progress Note, Physician History of Present Illness: Patient feeling about the same, now losing voice. Notes some "burning" in mouth and a bed smell (coming from mouth?) - Current Medication List Current Medications: Active Medications Acetaminophen (Tylenol -) 650 mg PO Q4H PRN PRN Reason: FEVER OR PAIN Al Hydroxide/Mg Hydroxide (Mylanta Oral Suspension -) 30 ml PO Q6H PRN PRN Reason: DYSPEPSIA Albuterol Sulfate (Ventolin 0.083% Nebulizer Soln -) 1 amp NEB Q4H PRN PRN Reason: SHORT OF BREATH/WHEEZING Albuterol/Ipratropium (Duoneb -) 1 amp NEB QIDR [facility] Last Admin: 03/03/16 06:37 Dose: 1 amp Amlodipine Besylate (Norvasc -) 5 mg PO DAILY [facility] Last Admin: 03/02/16 09:39 Dose: 5 mg Aspirin (Ecotrin -) 81 mg PO DAILY [facility] Last Admin: 03/02/16 09:40 Dose: 81 mg Atorvastatin Calcium (Lipitor -) 80 mg PO HS [facility] Last Admin: 03/02/16 21:40 Dose: 80 mg Clopidogrel Bisulfate (Plavix -) 75 mg PO DAILY [facility] Last Admin: 03/02/16 09:40 Dose: 75 mg Cyanocobalamin (Vitamin B12 -) 1,000 mcg PO DAILY [facility] Last Admin: 03/02/16 09:40 Dose: 1,000 mcg Guaifenesin (Mucinex -) 600 mg PO BID [facility] Last Admin: 03/02/16 21:39 Dose: 600 mg Heparin Sodium (Porcine) (Heparin -) 5,000 unit SQ BID [facility] Last Admin: 03/02/16 21:39 Dose: 5,000 unit Sodium Chloride (Normal Saline -) 1,000 mls @ 82 mls/hr IV ASDIR [facility] Last Admin: 03/02/16 22:36 Dose: 82 mls/hr Methylprednisolone Sodium Succinate (Solu-Medrol -) 40 mg IVPB Q8H-IV [facility] Last Admin: 03/03/16 02:21 Dose: 40 mg Metoprolol Tartrate (Lopressor -) 50 mg PO BID [facility] Last Admin: 03/02/16 21:40 Dose: 50 mg Oseltamivir Phosphate (Tamiflu -) 30 mg PO DAILY [facility] Last Admin: 03/02/16 09:45 Dose: 30 mg Pantoprazole Sodium (Protonix -) 40 mg PO DAILY [facility] Last Admin: 03/02/16 09:39 Dose: 40 mg Ranolazine (Ranexa -) 500 mg PO BID [facility] Last Admin: 03/02/16 21:39 Dose: 500 mg Tamsulosin HCl (Flomax -) 0.4 mg PO DAILY@0830 [facility] Last Admin: 03/02/16 09:39 Dose: 0.4 mg - Objective Vital Signs: Vital Signs Temperature 97.4 F L 03/03/16 06:00 Pulse Rate 79 03/03/16 06:00 Respiratory Rate 18 03/03/16 06:00 Blood Pressure 132/67 03/03/16 06:00 O2 Sat by Pulse Oximetry (%) 97 03/02/16 22:00 Constitutional: Yes: No Distress, Calm Neck: Yes: Supple, Trachea Midline Cardiovascular: Yes: Regular Rate and Rhythm, S1, S2. No: Murmur Respiratory: Yes: Regular, Rhonchi (B/L) Gastrointestinal: Yes: Normal Bowel Sounds, Soft. No: Distention, Tenderness Edema: Yes Edema: LLE: Trace, RLE: Trace Labs: CBC, BMP 03/03/16 06:30 03/03/16 06:30 INR, PTT INR 0.97 (0.82-1.09) 02/27/16 13:15 Assessment/Plan Current Active Problems DAVID (acute kidney injury) (Acute) Acute on chronic congestive heart failure with left ventricular diastolic dysfunction (Acute) Anemia (Acute) Asthma exacerbation (Acute) CAD (coronary artery disease) (Acute) COPD exacerbation (Acute) Chronic kidney disease (Acute) Elevated troponin (Acute) HLD (hyperlipidemia) (Acute) HTN (hypertension) (Acute) History of percutaneous coronary intervention (Acute) Influenza A (Acute) NSTEMI (non-ST elevated myocardial infarction) (Acute) Subendocardial ischemia (Acute) -renal function improving -cont breathign tx, solumedrol, nebs -advised patient to start mouth rinses (likely "bad smell" from ucous in nasopharynx related to the influenza infection
--- NOTE | 2016-03-03 09:59 | PN ---
Progress Note, Physician Chief Complaint: Events noted Complains of laryngitis Still with cough History of Present Illness: Patient was seen and examined. Awake and alert. Chart was reviewed Still with cough and mucous. Denies chest pain or palpitations, but with laryngitis Still with renal insufficiency - creatinine reduced slightly - Current Medication List Current Medications: Active Medications Acetaminophen (Tylenol -) 650 mg PO Q4H PRN PRN Reason: FEVER OR PAIN Al Hydroxide/Mg Hydroxide (Mylanta Oral Suspension -) 30 ml PO Q6H PRN PRN Reason: DYSPEPSIA Albuterol Sulfate (Ventolin 0.083% Nebulizer Soln -) 1 amp NEB Q4H PRN PRN Reason: SHORT OF BREATH/WHEEZING Albuterol/Ipratropium (Duoneb -) 1 amp NEB QIDR [facility] Last Admin: 03/03/16 06:37 Dose: 1 amp Amlodipine Besylate (Norvasc -) 5 mg PO DAILY [facility] Last Admin: 03/02/16 09:39 Dose: 5 mg Aspirin (Ecotrin -) 81 mg PO DAILY [facility] Last Admin: 03/02/16 09:40 Dose: 81 mg Atorvastatin Calcium (Lipitor -) 80 mg PO HS [facility] Last Admin: 03/02/16 21:40 Dose: 80 mg Clopidogrel Bisulfate (Plavix -) 75 mg PO DAILY [facility] Last Admin: 03/02/16 09:40 Dose: 75 mg Cyanocobalamin (Vitamin B12 -) 1,000 mcg PO DAILY [facility] Last Admin: 03/02/16 09:40 Dose: 1,000 mcg Guaifenesin (Mucinex -) 600 mg PO BID [facility] Last Admin: 03/02/16 21:39 Dose: 600 mg Heparin Sodium (Porcine) (Heparin -) 5,000 unit SQ BID [facility] Last Admin: 03/02/16 21:39 Dose: 5,000 unit Sodium Chloride (Normal Saline -) 1,000 mls @ 82 mls/hr IV ASDIR [facility] Last Admin: 03/02/16 22:36 Dose: 82 mls/hr Methylprednisolone Sodium Succinate (Solu-Medrol -) 40 mg IVPB Q8H-IV [facility] Last Admin: 03/03/16 02:21 Dose: 40 mg Metoprolol Tartrate (Lopressor -) 50 mg PO BID [facility] Last Admin: 03/02/16 21:40 Dose: 50 mg Oseltamivir Phosphate (Tamiflu -) 30 mg PO DAILY [facility] Last Admin: 03/02/16 09:45 Dose: 30 mg Pantoprazole Sodium (Protonix -) 40 mg PO DAILY [facility] Last Admin: 03/02/16 09:39 Dose: 40 mg Ranolazine (Ranexa -) 500 mg PO BID [facility] Last Admin: 03/02/16 21:39 Dose: 500 mg Tamsulosin HCl (Flomax -) 0.4 mg PO DAILY@0830 [facility] Last Admin: 03/02/16 09:39 Dose: 0.4 mg - Objective Vital Signs: Vital Signs Temperature 97.4 F L 03/03/16 06:00 Pulse Rate 79 03/03/16 06:00 Respiratory Rate 18 03/03/16 06:00 Blood Pressure 132/67 03/03/16 06:00 O2 Sat by Pulse Oximetry (%) 97 03/02/16 22:00 Neck: Yes: Supple Cardiovascular: Yes: Regular Rate and Rhythm, S1, S2 Respiratory: Yes: Diminished Gastrointestinal: Yes: Normal Bowel Sounds, Soft. No: Tenderness Edema: No Additional Findings/Remarks: Review of Systems Cardiovascular: As noted above Respiratory: denies: reports: Cough Gastrointestinal: denies: Nausea, Vomiting, Diarrhea, Constipation or Abdominal Discomfort Musculoskeletal: No Symptoms Reported Endocrine: No Symptoms Reported Labs: CBC, BMP 03/03/16 06:30 03/03/16 06:30 Problem List - Problems (1) Acute on chronic congestive heart failure with left ventricular diastolic dysfunction Code(s): I50.33 - ACUTE ON CHRONIC DIASTOLIC (CONGESTIVE) HEART FAILURE (2) CAD (coronary artery disease) Code(s): I25.10 - ATHSCL HEART DISEASE OF [place] CORONARY ARTERY W/O ANG PCTRS Qualifiers: Coronary Disease-Associated Artery/Lesion type: [place] artery [place] vs. transplanted heart: [place] heart Associated angina: without angina Qualified Code(s): I25.10 - Atherosclerotic heart disease of [place] coronary artery without angina pectoris (3) Elevated troponin Code(s): R79.89 - OTHER SPECIFIED ABNORMAL FINDINGS OF BLOOD CHEMISTRY (4) HLD (hyperlipidemia) Code(s): E78.5 - HYPERLIPIDEMIA, UNSPECIFIED Qualifiers: Hyperlipidemia type: pure hypercholesterolemia Qualified Code(s): E78.0 - Pure hypercholesterolemia (5) HTN (hypertension) Code(s): I10 - ESSENTIAL (PRIMARY) HYPERTENSION Qualifiers: Hypertension type: essential hypertension Qualified Code(s): I10 - Essential (primary) hypertension (6) Influenza A Code(s): J10.1 - FLU DUE TO OTH IDENT INFLUENZA VIRUS W OTH RESP MANIFEST (7) NSTEMI (non-ST elevated myocardial infarction) Code(s): I21.4 - NON-ST ELEVATION (NSTEMI) MYOCARDIAL INFARCTION (8) History of percutaneous coronary intervention Code(s): Z98.89 - OTHER SPECIFIED POSTPROCEDURAL STATES * DO NOT USE * Assessment/Plan 1. Clinical presentation is consistent with acute systolic/diastolic LV dysfunction with class III-IV NYHA classification LV failure, precipitated by acute ischemia 2. CAD post PCI/stent angina pectoris with evidence of NSTEMI 3. HTN 4. Hypercholesterolemia 5. Influenza, acute 6. Anemia 7. History of CKD PLAN: 1. Continue ASA and Plavix 2. Continue Lopressor 50 mg BID, titrate dosage as tolerated, continue Norvasc 5 mg QD 3. Continue Diovan as tolerated 4. Continue Ranexa 500 mg BID as tolerated 5. Continue Lipitor 6. patient is on Tamiflu 7. Considering the above noted clinical presentation would recommend early right and left heart catheterization/coronary angiography once LV failure class and influenza improves and renal function stabilizes Further plans are to follow. Piero Ruiz MD
[2016-03-03] MEDS: METOPROLOL TARTRATE 50 MG TABLET (FP) PO SCH ×2 (10:03→22:13)
[2016-03-03] MEDS: RANOLAZINE E.R. 500 MG TABLET (FP) PO SCH ×2 (10:03→22:13)
[2016-03-03] MEDS: PANTOPRAZOLE 40 MG TABLET (FP) PO SCH (10:03)
[2016-03-03] MEDS: CYANOCOBALAMIN 1,000 MCG TABLET (FP) PO SCH (10:03)
[2016-03-03] MEDS: guaiFENesin 600 MG TABLET.ER (FP) PO SCH ×2 (10:03→22:13)
[2016-03-03] MEDS: ASPIRIN COATED 81 MG TABLET.EC PO SCH (10:03)
[2016-03-03] MEDS: CLOPIDOGREL BISULFATE 75 MG TABLET (FP) PO SCH (10:03)
[2016-03-03] MEDS: amLODIPine BESYLATE 5 MG TABLET (FP) PO SCH (10:03)
[2016-03-03] MEDS: TAMSULOSIN HCL 0.4 MG CAP.ER.24H (FP) PO SCH (10:03)
[2016-03-03] MEDS: OSELTAMIVIR PHOSPHATE 30 MG CAPSULE PO SCH (10:04)
[2016-03-03] MEDS: HEPARIN NA (PORCINE) 5,000 UNITS/ML 1ML VIAL SQ SCH ×2 (10:04→22:13)
--- NOTE | 2016-03-03 10:58 | PN ---
Progress Note, Physician History of Present Illness: pulmonary alert,still c/o sob,+cough - Current Medication List Current Medications: Active Medications Acetaminophen (Tylenol -) 650 mg PO Q4H PRN PRN Reason: FEVER OR PAIN Al Hydroxide/Mg Hydroxide (Mylanta Oral Suspension -) 30 ml PO Q6H PRN PRN Reason: DYSPEPSIA Albuterol Sulfate (Ventolin 0.083% Nebulizer Soln -) 1 amp NEB Q4H PRN PRN Reason: SHORT OF BREATH/WHEEZING Albuterol/Ipratropium (Duoneb -) 1 amp NEB QIDR [facility] Last Admin: 03/03/16 06:37 Dose: 1 amp Amlodipine Besylate (Norvasc -) 5 mg PO DAILY [facility] Last Admin: 03/03/16 10:03 Dose: 5 mg Aspirin (Ecotrin -) 81 mg PO DAILY [facility] Last Admin: 03/03/16 10:03 Dose: 81 mg Atorvastatin Calcium (Lipitor -) 80 mg PO HS [facility] Last Admin: 03/02/16 21:40 Dose: 80 mg Clopidogrel Bisulfate (Plavix -) 75 mg PO DAILY [facility] Last Admin: 03/03/16 10:03 Dose: 75 mg Cyanocobalamin (Vitamin B12 -) 1,000 mcg PO DAILY [facility] Last Admin: 03/03/16 10:03 Dose: 1,000 mcg Guaifenesin (Mucinex -) 600 mg PO BID [facility] Last Admin: 03/03/16 10:03 Dose: 600 mg Heparin Sodium (Porcine) (Heparin -) 5,000 unit SQ BID [facility] Last Admin: 03/03/16 10:04 Dose: 5,000 unit Sodium Chloride (Normal Saline -) 1,000 mls @ 82 mls/hr IV ASDIR [facility] Last Admin: 03/02/16 22:36 Dose: 82 mls/hr Methylprednisolone Sodium Succinate (Solu-Medrol -) 40 mg IVPB Q8H-IV [facility] Last Admin: 03/03/16 10:04 Dose: 40 mg Metoprolol Tartrate (Lopressor -) 50 mg PO BID [facility] Last Admin: 03/03/16 10:03 Dose: 50 mg Oseltamivir Phosphate (Tamiflu -) 30 mg PO DAILY [facility] Last Admin: 03/03/16 10:04 Dose: 30 mg Pantoprazole Sodium (Protonix -) 40 mg PO DAILY [facility] Last Admin: 03/03/16 10:03 Dose: 40 mg Ranolazine (Ranexa -) 500 mg PO BID [facility] Last Admin: 03/03/16 10:03 Dose: 500 mg Tamsulosin HCl (Flomax -) 0.4 mg PO DAILY@0830 [facility] Last Admin: 03/03/16 10:03 Dose: 0.4 mg - Objective Vital Signs: Vital Signs Temperature 97.4 F L 03/03/16 06:00 Pulse Rate 79 03/03/16 10:09 Respiratory Rate 20 03/03/16 10:09 Blood Pressure 161/86 03/03/16 10:09 O2 Sat by Pulse Oximetry (%) 97 03/02/16 22:00 Constitutional: Yes: Well Nourished, Calm Eyes: Yes: WNL HENT: Yes: WNL Neck: Yes: WNL Cardiovascular: Yes: Regular Rate and Rhythm, S1, S2 Respiratory: Yes: Wheezes Gastrointestinal: Yes: Normal Bowel Sounds, Soft Extremities: Yes: WNL Edema: No Labs: CBC, BMP 03/03/16 06:30 03/03/16 06:30 INR, PTT INR 0.97 (0.82-1.09) 02/27/16 13:15 Assessment/Plan ASSESSMENT AND PLAN: Acute on Chronic LV Diastolic Heart Failure CAD r/o NSTEMI Acute COPD Exacerbation Influenza A Acute Kidney Injury - lopressor - monitor urine output, creatinine - continue medrol - continue tamiflu - inhaled bronchodilators standing and as needed Problem List - Problems (1) Acute on chronic congestive heart failure with left ventricular diastolic dysfunction Code(s): I50.33 - ACUTE ON CHRONIC DIASTOLIC (CONGESTIVE) HEART FAILURE (2) CAD (coronary artery disease) Code(s): I25.10 - ATHSCL HEART DISEASE OF [place] CORONARY ARTERY W/O ANG PCTRS (3) Influenza A Code(s): J10.1 - FLU DUE TO OTH IDENT INFLUENZA VIRUS W OTH RESP MANIFEST (4) COPD exacerbation Code(s): J44.1 - CHRONIC OBSTRUCTIVE PULMONARY DISEASE W (ACUTE) EXACERBATION (5) HTN (hypertension) Code(s): I10 - ESSENTIAL (PRIMARY) HYPERTENSION (6) Elevated troponin Code(s): R79.89 - OTHER SPECIFIED ABNORMAL FINDINGS OF BLOOD CHEMISTRY
[2016-03-03] MEDS: SODIUM CHLORIDE 1,000 ML IV SCH ×2 (11:25→22:13)
[2016-03-03 15:57] LABS: MCH 31.9 pg (25.7-33.7); MCHC 33.1 g/dl (32.0-35.9); MEAN CELL VOLUME 96.6 fl (80-96); MEAN PLT VOLUME 9.5 fl (7.5-11.1); PLATELET COUNT 183 K/MM3 (134-434); RDW 12.7 % (11.9-15.9); WHITE BLOOD COUNT 12.5 K/mm3 (4.0-10.0)
[2016-03-03] MEDS: ATORVASTATIN CA 80 MG TABLET (FP) PO SCH (22:13)
[2016-03-04] MEDS: ALBUTEROL SO4 2.5/IPRATROPIUM 0.5 INH SOL 3 ML VIAL.NEB. NEB SCH ×5 (01:00→23:50)
[2016-03-04] MEDS: methylPREDNISolone NA SUCC 40 MG/1 ML VIAL IVPB SCH ×4 (01:11→21:26)
[2016-03-04 07:10] LABS: MCH 32.3 pg (25.7-33.7); MCHC 33.3 g/dl (32.0-35.9); MEAN PLT VOLUME 9.2 fl (7.5-11.1); PLATELET COUNT 166 K/MM3 (134-434); RDW 12.5 % (11.9-15.9); WHITE BLOOD COUNT 12.8 K/mm3 (4.0-10.0)
[2016-03-04 07:36] LABS: CALCIUM 8.3 mg/dL (8.5-10.1)
[2016-03-04 07:38] LABS: CREATININE 1.6 mg/dL (0.7-1.3)
[2016-03-04] MEDS ORDERED: PT OWN MED DRAWER 7, Y5N ONE (09:13)
[2016-03-04] MEDS: TAMSULOSIN HCL 0.4 MG CAP.ER.24H (FP) PO SCH (09:29)
[2016-03-04] MEDS: guaiFENesin 600 MG TABLET.ER (FP) PO SCH ×2 (09:29→21:26)
[2016-03-04] MEDS: amLODIPine BESYLATE 5 MG TABLET (FP) PO SCH (09:29)
[2016-03-04] MEDS: RANOLAZINE E.R. 500 MG TABLET (FP) PO SCH ×2 (09:29→21:25)
[2016-03-04] MEDS: PANTOPRAZOLE 40 MG TABLET (FP) PO SCH (09:29)
[2016-03-04] MEDS: CYANOCOBALAMIN 1,000 MCG TABLET (FP) PO SCH (09:29)
[2016-03-04] MEDS: ASPIRIN COATED 81 MG TABLET.EC PO SCH (09:29)
[2016-03-04] MEDS: CLOPIDOGREL BISULFATE 75 MG TABLET (FP) PO SCH (09:29)
[2016-03-04] MEDS: METOPROLOL TARTRATE 50 MG TABLET (FP) PO SCH ×2 (09:29→21:26)
[2016-03-04] MEDS: HEPARIN NA (PORCINE) 5,000 UNITS/ML 1ML VIAL SQ SCH ×2 (09:30→21:25)
[2016-03-04] MEDS: SODIUM CHLORIDE 1,000 ML IV SCH (09:30)
[2016-03-04] MEDS: OSELTAMIVIR PHOSPHATE 30 MG CAPSULE PO SCH (09:31)
--- NOTE | 2016-03-04 09:45 | PN ---
Progress Note, Physician Chief Complaint: Events noted Complains of laryngitis Still with cough intermittently History of Present Illness: Patient was seen and examined. Awake and alert. Chart was reviewed Still with cough intermittently and mucous. Denies chest pain or palpitations, but with laryngitis Still with renal insufficiency - creatinine improving - Current Medication List Current Medications: Active Medications Acetaminophen (Tylenol -) 650 mg PO Q4H PRN PRN Reason: FEVER OR PAIN Al Hydroxide/Mg Hydroxide (Mylanta Oral Suspension -) 30 ml PO Q6H PRN PRN Reason: DYSPEPSIA Albuterol Sulfate (Ventolin 0.083% Nebulizer Soln -) 1 amp NEB Q4H PRN PRN Reason: SHORT OF BREATH/WHEEZING Albuterol/Ipratropium (Duoneb -) 1 amp NEB QIDR [facility] Last Admin: 03/04/16 06:45 Dose: 1 amp Amlodipine Besylate (Norvasc -) 5 mg PO DAILY [facility] Last Admin: 03/04/16 09:29 Dose: 5 mg Aspirin (Ecotrin -) 81 mg PO DAILY [facility] Last Admin: 03/04/16 09:29 Dose: 81 mg Atorvastatin Calcium (Lipitor -) 80 mg PO HS [facility] Last Admin: 03/03/16 22:13 Dose: 80 mg Clopidogrel Bisulfate (Plavix -) 75 mg PO DAILY [facility] Last Admin: 03/04/16 09:29 Dose: 75 mg Cyanocobalamin (Vitamin B12 -) 1,000 mcg PO DAILY [facility] Last Admin: 03/04/16 09:29 Dose: 1,000 mcg Guaifenesin (Mucinex -) 600 mg PO BID [facility] Last Admin: 03/04/16 09:29 Dose: 600 mg Heparin Sodium (Porcine) (Heparin -) 5,000 unit SQ BID [facility] Last Admin: 03/04/16 09:30 Dose: 5,000 unit Sodium Chloride (Normal Saline -) 1,000 mls @ 82 mls/hr IV ASDIR [facility] Last Admin: 03/04/16 09:30 Dose: 82 mls/hr Methylprednisolone Sodium Succinate (Solu-Medrol -) 40 mg IVPB Q8H-IV [facility] Last Admin: 03/04/16 09:31 Dose: 40 mg Metoprolol Tartrate (Lopressor -) 50 mg PO BID [facility] Last Admin: 03/04/16 09:29 Dose: 50 mg Oseltamivir Phosphate (Tamiflu -) 30 mg PO DAILY [facility] Last Admin: 03/04/16 09:31 Dose: 30 mg Pantoprazole Sodium (Protonix -) 40 mg PO DAILY [facility] Last Admin: 03/04/16 09:29 Dose: 40 mg Ranolazine (Ranexa -) 500 mg PO BID [facility] Last Admin: 03/04/16 09:29 Dose: 500 mg Tamsulosin HCl (Flomax -) 0.4 mg PO DAILY@0830 [facility] Last Admin: 03/04/16 09:29 Dose: 0.4 mg - Objective Vital Signs: Vital Signs Temperature 97.5 F L 03/04/16 06:00 Pulse Rate 62 03/04/16 06:00 Respiratory Rate 20 03/04/16 06:00 Blood Pressure 149/72 03/04/16 06:00 O2 Sat by Pulse Oximetry (%) 94 L 03/03/16 22:00 Neck: Yes: Supple Cardiovascular: Yes: Regular Rate and Rhythm, S1, S2 Respiratory: Yes: Diminished Gastrointestinal: Yes: Normal Bowel Sounds, Soft. No: Tenderness Edema: Yes Edema: LLE: Trace, RLE: Trace Additional Findings/Remarks: Cardiovascular: As noted above Respiratory: denies: reports: Cough Gastrointestinal: denies: Nausea, Vomiting, Diarrhea, Constipation or Abdominal Discomfort Musculoskeletal: No Symptoms Reported Endocrine: No Symptoms Reported Labs: CBC, BMP 03/04/16 05:30 03/04/16 05:30 Problem List - Problems (1) Acute on chronic congestive heart failure with left ventricular diastolic dysfunction Code(s): I50.33 - ACUTE ON CHRONIC DIASTOLIC (CONGESTIVE) HEART FAILURE (2) CAD (coronary artery disease) Code(s): I25.10 - ATHSCL HEART DISEASE OF [place] CORONARY ARTERY W/O ANG PCTRS Qualifiers: Coronary Disease-Associated Artery/Lesion type: [place] artery [place] vs. transplanted heart: [place] heart Associated angina: without angina Qualified Code(s): I25.10 - Atherosclerotic heart disease of [place] coronary artery without angina pectoris (3) Elevated troponin Code(s): R79.89 - OTHER SPECIFIED ABNORMAL FINDINGS OF BLOOD CHEMISTRY (4) HLD (hyperlipidemia) Code(s): E78.5 - HYPERLIPIDEMIA, UNSPECIFIED Qualifiers: Hyperlipidemia type: pure hypercholesterolemia Qualified Code(s): E78.0 - Pure hypercholesterolemia (5) HTN (hypertension) Code(s): I10 - ESSENTIAL (PRIMARY) HYPERTENSION Qualifiers: Hypertension type: essential hypertension Qualified Code(s): I10 - Essential (primary) hypertension (6) Influenza A Code(s): J10.1 - FLU DUE TO OTH IDENT INFLUENZA VIRUS W OTH RESP MANIFEST (7) NSTEMI (non-ST elevated myocardial infarction) Code(s): I21.4 - NON-ST ELEVATION (NSTEMI) MYOCARDIAL INFARCTION (8) History of percutaneous coronary intervention Code(s): Z98.89 - OTHER SPECIFIED POSTPROCEDURAL STATES * DO NOT USE * Assessment/Plan 1. Clinical presentation is consistent with acute systolic/diastolic LV dysfunction with class III-IV NYHA classification LV failure, precipitated by acute ischemia 2. CAD post PCI/stent angina pectoris with evidence of NSTEMI 3. HTN 4. Hypercholesterolemia 5. Influenza, acute 6. Anemia 7. History of CKD PLAN: 1. Continue ASA and Plavix 2. Continue Lopressor and Norvasc 3. Continue Diovan as tolerated 4. Continue Ranexa 500 mg BID as tolerated 5. Continue Lipitor 6. Continue Tamiflu 7. Considering the above noted clinical presentation would recommend early right and left heart catheterization/coronary angiography once LV failure class and influenza improves and renal function stabilizes Further plans are to follow. Piero Ruiz MD
--- NOTE | 2016-03-04 11:18 | PN ---
Progress Note, Physician Chief Complaint: Patient reports that he is coughing constantly. Still Short of breath, especially on minimal exertion. Getting nightmares. Good urine output. - Current Medication List Current Medications: Active Medications Acetaminophen (Tylenol -) 650 mg PO Q4H PRN PRN Reason: FEVER OR PAIN Al Hydroxide/Mg Hydroxide (Mylanta Oral Suspension -) 30 ml PO Q6H PRN PRN Reason: DYSPEPSIA Albuterol Sulfate (Ventolin 0.083% Nebulizer Soln -) 1 amp NEB Q4H PRN PRN Reason: SHORT OF BREATH/WHEEZING Albuterol/Ipratropium (Duoneb -) 1 amp NEB QIDR [facility] Last Admin: 03/04/16 06:45 Dose: 1 amp Amlodipine Besylate (Norvasc -) 5 mg PO DAILY [facility] Last Admin: 03/04/16 09:29 Dose: 5 mg Aspirin (Ecotrin -) 81 mg PO DAILY [facility] Last Admin: 03/04/16 09:29 Dose: 81 mg Atorvastatin Calcium (Lipitor -) 80 mg PO HS [facility] Last Admin: 03/03/16 22:13 Dose: 80 mg Clopidogrel Bisulfate (Plavix -) 75 mg PO DAILY [facility] Last Admin: 03/04/16 09:29 Dose: 75 mg Cyanocobalamin (Vitamin B12 -) 1,000 mcg PO DAILY [facility] Last Admin: 03/04/16 09:29 Dose: 1,000 mcg Guaifenesin (Mucinex -) 600 mg PO BID [facility] Last Admin: 03/04/16 09:29 Dose: 600 mg Heparin Sodium (Porcine) (Heparin -) 5,000 unit SQ BID [facility] Last Admin: 03/04/16 09:30 Dose: 5,000 unit Sodium Chloride (Normal Saline -) 1,000 mls @ 82 mls/hr IV ASDIR [facility] Last Admin: 03/04/16 09:30 Dose: 82 mls/hr Methylprednisolone Sodium Succinate (Solu-Medrol -) 40 mg IVPB Q8H-IV [facility] Last Admin: 03/04/16 09:31 Dose: 40 mg Metoprolol Tartrate (Lopressor -) 50 mg PO BID [facility] Last Admin: 03/04/16 09:29 Dose: 50 mg Oseltamivir Phosphate (Tamiflu -) 30 mg PO DAILY [facility] Last Admin: 03/04/16 09:31 Dose: 30 mg Pantoprazole Sodium (Protonix -) 40 mg PO DAILY [facility] Last Admin: 03/04/16 09:29 Dose: 40 mg Ranolazine (Ranexa -) 500 mg PO BID [facility] Last Admin: 03/04/16 09:29 Dose: 500 mg Tamsulosin HCl (Flomax -) 0.4 mg PO DAILY@0830 [facility] Last Admin: 03/04/16 09:29 Dose: 0.4 mg - Objective Vital Signs: Vital Signs Temperature 97.5 F L 03/04/16 06:00 Pulse Rate 71 03/04/16 10:15 Respiratory Rate 20 03/04/16 06:00 Blood Pressure 149/72 03/04/16 06:00 O2 Sat by Pulse Oximetry (%) 95 03/04/16 10:15 Constitutional: Yes: Anxious, Moderate Distress Neck: Yes: Supple Cardiovascular: Yes: Regular Rate and Rhythm, S1, S2 Respiratory: Yes: Diminished, Dullness, Rales, Rhonchi, Wheezes Gastrointestinal: Yes: Normal Bowel Sounds, Soft Labs: CBC, BMP 03/04/16 05:30 03/04/16 05:30 INR, PTT INR 0.97 (0.82-1.09) 02/27/16 13:15 Problem List - Problems (1) DAVID (acute kidney injury) Code(s): N17.9 - ACUTE KIDNEY FAILURE, UNSPECIFIED (2) Acute on chronic congestive heart failure with left ventricular diastolic dysfunction Code(s): I50.33 - ACUTE ON CHRONIC DIASTOLIC (CONGESTIVE) HEART FAILURE (3) Anemia Code(s): D64.9 - ANEMIA, UNSPECIFIED (4) Asthma exacerbation Code(s): J45.901 - UNSPECIFIED ASTHMA WITH (ACUTE) EXACERBATION (5) CAD (coronary artery disease) Code(s): I25.10 - ATHSCL HEART DISEASE OF [place] CORONARY ARTERY W/O ANG PCTRS Qualifiers: Coronary Disease-Associated Artery/Lesion type: [place] artery [place] vs. transplanted heart: [place] heart Associated angina: without angina Qualified Code(s): I25.10 - Atherosclerotic heart disease of [place] coronary artery without angina pectoris (6) COPD exacerbation Code(s): J44.1 - CHRONIC OBSTRUCTIVE PULMONARY DISEASE W (ACUTE) EXACERBATION (7) Chronic kidney disease Code(s): N18.9 - CHRONIC KIDNEY DISEASE, UNSPECIFIED (8) Elevated troponin Code(s): R79.89 - OTHER SPECIFIED ABNORMAL FINDINGS OF BLOOD CHEMISTRY (9) HTN (hypertension) Code(s): I10 - ESSENTIAL (PRIMARY) HYPERTENSION Qualifiers: Hypertension type: essential hypertension Qualified Code(s): I10 - Essential (primary) hypertension (10) Subendocardial ischemia Code(s): I24.8 - OTHER FORMS OF ACUTE ISCHEMIC HEART DISEASE Assessment/Plan Renal functions remain fairly stable. Has multiple co-morbid factors. Some degree of azotemia is steroid dependednt. ? Chest PT. Will monitor the renal functions with you. Shira Mcpherson MD
--- NOTE | 2016-03-04 12:57 | EKG ---
Test Reason : Blood Pressure : / mmHG Vent. Rate : 111 BPM Atrial Rate : 111 BPM P-R Int : 154 ms QRS Dur : 076 ms QT Int : 298 ms P-R-T Axes : 071 068 042 degrees QTc Int : 405 ms SINUS TACHYCARDIA POSSIBLE LEFT ATRIAL ENLARGEMENT ABNORMAL ECG WHEN COMPARED WITH ECG OF 26-FEB-2016 17:25, PREMATURE ATRIAL COMPLEXES ARE NO LONGER PRESENT Confirmed by REAL KENNEY MD ([id number]) on 03/04/2016 12:57:14 PM Referred By: Confirmed By:REAL KENNEY MD
--- NOTE | 2016-03-04 12:57 | PN ---
Progress Note, Physician History of Present Illness: PULMONARY ALERT,FEELING BETTER,LESS CONGESTED,LESS COUGH - Current Medication List Current Medications: Active Medications Acetaminophen (Tylenol -) 650 mg PO Q4H PRN PRN Reason: FEVER OR PAIN Al Hydroxide/Mg Hydroxide (Mylanta Oral Suspension -) 30 ml PO Q6H PRN PRN Reason: DYSPEPSIA Albuterol Sulfate (Ventolin 0.083% Nebulizer Soln -) 1 amp NEB Q4H PRN PRN Reason: SHORT OF BREATH/WHEEZING Albuterol/Ipratropium (Duoneb -) 1 amp NEB QIDR [facility] Last Admin: 03/04/16 11:16 Dose: 1 amp Amlodipine Besylate (Norvasc -) 5 mg PO DAILY [facility] Last Admin: 03/04/16 09:29 Dose: 5 mg Aspirin (Ecotrin -) 81 mg PO DAILY [facility] Last Admin: 03/04/16 09:29 Dose: 81 mg Atorvastatin Calcium (Lipitor -) 80 mg PO HS [facility] Last Admin: 03/03/16 22:13 Dose: 80 mg Clopidogrel Bisulfate (Plavix -) 75 mg PO DAILY [facility] Last Admin: 03/04/16 09:29 Dose: 75 mg Cyanocobalamin (Vitamin B12 -) 1,000 mcg PO DAILY [facility] Last Admin: 03/04/16 09:29 Dose: 1,000 mcg Guaifenesin (Mucinex -) 600 mg PO BID [facility] Last Admin: 03/04/16 09:29 Dose: 600 mg Heparin Sodium (Porcine) (Heparin -) 5,000 unit SQ BID [facility] Last Admin: 03/04/16 09:30 Dose: 5,000 unit Sodium Chloride (Normal Saline -) 1,000 mls @ 82 mls/hr IV ASDIR [facility] Last Admin: 03/04/16 09:30 Dose: 82 mls/hr Methylprednisolone Sodium Succinate (Solu-Medrol -) 40 mg IVPB Q8H-IV [facility] Last Admin: 03/04/16 09:31 Dose: 40 mg Metoprolol Tartrate (Lopressor -) 50 mg PO BID [facility] Last Admin: 03/04/16 09:29 Dose: 50 mg Oseltamivir Phosphate (Tamiflu -) 30 mg PO DAILY [facility] Last Admin: 03/04/16 09:31 Dose: 30 mg Pantoprazole Sodium (Protonix -) 40 mg PO DAILY [facility] Last Admin: 03/04/16 09:29 Dose: 40 mg Ranolazine (Ranexa -) 500 mg PO BID [facility] Last Admin: 03/04/16 09:29 Dose: 500 mg Tamsulosin HCl (Flomax -) 0.4 mg PO DAILY@0830 [facility] Last Admin: 03/04/16 09:29 Dose: 0.4 mg - Objective Vital Signs: Vital Signs Temperature 98.0 F 03/04/16 10:00 Pulse Rate 71 03/04/16 10:15 Respiratory Rate 20 03/04/16 10:00 Blood Pressure 179/85 03/04/16 10:00 O2 Sat by Pulse Oximetry (%) 95 03/04/16 10:15 Constitutional: Yes: Well Nourished, Calm Eyes: Yes: WNL HENT: Yes: WNL Neck: Yes: WNL Cardiovascular: Yes: Regular Rate and Rhythm, S1, S2 Respiratory: Yes: Wheezes (LESS WHEEZES TESS) Gastrointestinal: Yes: Normal Bowel Sounds, Soft Extremities: Yes: WNL Edema: No Labs: CBC, BMP 03/04/16 05:30 03/04/16 05:30 INR, PTT INR 0.97 (0.82-1.09) 02/27/16 13:15 Assessment/Plan ASSESSMENT AND PLAN: Acute on Chronic LV Diastolic Heart Failure CAD r/o NSTEMI Acute COPD Exacerbation Influenza A Acute Kidney Injury - lopressor - monitor urine output, creatinine - taper medrol - continue tamiflu - inhaled bronchodilators standing and as needed Problem List - Problems (1) Acute on chronic congestive heart failure with left ventricular diastolic dysfunction Code(s): I50.33 - ACUTE ON CHRONIC DIASTOLIC (CONGESTIVE) HEART FAILURE (2) CAD (coronary artery disease) Code(s): I25.10 - ATHSCL HEART DISEASE OF [place] CORONARY ARTERY W/O ANG PCTRS (3) Influenza A Code(s): J10.1 - FLU DUE TO OTH IDENT INFLUENZA VIRUS W OTH RESP MANIFEST (4) COPD exacerbation Code(s): J44.1 - CHRONIC OBSTRUCTIVE PULMONARY DISEASE W (ACUTE) EXACERBATION (5) HTN (hypertension) Code(s): I10 - ESSENTIAL (PRIMARY) HYPERTENSION (6) Elevated troponin Code(s): R79.89 - OTHER SPECIFIED ABNORMAL FINDINGS OF BLOOD CHEMISTRY
[2016-03-04 16:24] LABS: MCH 31.8 pg (25.7-33.7); MCHC 32.8 g/dl (32.0-35.9); MEAN CELL VOLUME 96.7 fl (80-96); MEAN PLT VOLUME 9.6 fl (7.5-11.1); PLATELET COUNT 211 K/MM3 (134-434); RDW 12.6 % (11.9-15.9); WHITE BLOOD COUNT 15.9 K/mm3 (4.0-10.0)
--- NOTE | 2016-03-04 17:01 | PN ---
Progress Note, Physician Chief Complaint: Mr Briscoe says his breathing is improving, states he is able to clear his secretions easier. Denies cp or n/v. - Current Medication List Current Medications: Active Medications Acetaminophen (Tylenol -) 650 mg PO Q4H PRN PRN Reason: FEVER OR PAIN Al Hydroxide/Mg Hydroxide (Mylanta Oral Suspension -) 30 ml PO Q6H PRN PRN Reason: DYSPEPSIA Albuterol Sulfate (Ventolin 0.083% Nebulizer Soln -) 1 amp NEB Q4H PRN PRN Reason: SHORT OF BREATH/WHEEZING Albuterol/Ipratropium (Duoneb -) 1 amp NEB QIDR [facility] Last Admin: 03/04/16 11:16 Dose: 1 amp Amlodipine Besylate (Norvasc -) 5 mg PO DAILY [facility] Last Admin: 03/04/16 09:29 Dose: 5 mg Aspirin (Ecotrin -) 81 mg PO DAILY [facility] Last Admin: 03/04/16 09:29 Dose: 81 mg Atorvastatin Calcium (Lipitor -) 80 mg PO HS [facility] Last Admin: 03/03/16 22:13 Dose: 80 mg Clopidogrel Bisulfate (Plavix -) 75 mg PO DAILY [facility] Last Admin: 03/04/16 09:29 Dose: 75 mg Cyanocobalamin (Vitamin B12 -) 1,000 mcg PO DAILY [facility] Last Admin: 03/04/16 09:29 Dose: 1,000 mcg Guaifenesin (Mucinex -) 600 mg PO BID [facility] Last Admin: 03/04/16 09:29 Dose: 600 mg Heparin Sodium (Porcine) (Heparin -) 5,000 unit SQ BID [facility] Last Admin: 03/04/16 09:30 Dose: 5,000 unit Sodium Chloride (Normal Saline -) 1,000 mls @ 82 mls/hr IV ASDIR [facility] Last Admin: 03/04/16 09:30 Dose: 82 mls/hr Methylprednisolone Sodium Succinate (Solu-Medrol -) 40 mg IVPB BID [facility] Last Admin: 03/04/16 15:31 Dose: 40 mg Metoprolol Tartrate (Lopressor -) 50 mg PO BID [facility] Last Admin: 03/04/16 09:29 Dose: 50 mg Pantoprazole Sodium (Protonix -) 40 mg PO DAILY [facility] Last Admin: 03/04/16 09:29 Dose: 40 mg Ranolazine (Ranexa -) 500 mg PO BID [facility] Last Admin: 03/04/16 09:29 Dose: 500 mg Tamsulosin HCl (Flomax -) 0.4 mg PO DAILY@0830 [facility] Last Admin: 03/04/16 09:29 Dose: 0.4 mg - Objective Vital Signs: Vital Signs Temperature 98.6 F 03/04/16 15:00 Pulse Rate 86 03/04/16 15:00 Respiratory Rate 20 03/04/16 15:00 Blood Pressure 127/54 03/04/16 15:00 O2 Sat by Pulse Oximetry (%) 95 03/04/16 10:15 Constitutional: Yes: Well Nourished, No Distress, Calm Cardiovascular: Yes: Regular Rate and Rhythm. No: Gallop, Murmur, Rub Respiratory: Yes: Regular, On Nasal O2, Wheezes (minimal), Other (good air movement). No: Rales, Rhonchi Gastrointestinal: Yes: Normal Bowel Sounds, Soft. No: Distention, Tenderness Extremities: Yes: WNL Edema: No Labs: CBC, BMP 03/04/16 15:40 03/04/16 05:30 INR, PTT INR 0.97 (0.82-1.09) 02/27/16 13:15 Problem List - Problems (1) NSTEMI (non-ST elevated myocardial infarction) Code(s): I21.4 - NON-ST ELEVATION (NSTEMI) MYOCARDIAL INFARCTION (2) Acute on chronic congestive heart failure with left ventricular diastolic dysfunction Code(s): I50.33 - ACUTE ON CHRONIC DIASTOLIC (CONGESTIVE) HEART FAILURE (3) Influenza A Code(s): J10.1 - FLU DUE TO OTH IDENT INFLUENZA VIRUS W OTH RESP MANIFEST (4) Asthma exacerbation Code(s): J45.901 - UNSPECIFIED ASTHMA WITH (ACUTE) EXACERBATION (5) CAD (coronary artery disease) Code(s): I25.10 - ATHSCL HEART DISEASE OF [place] CORONARY ARTERY W/O ANG PCTRS Qualifiers: Coronary Disease-Associated Artery/Lesion type: [place] artery [place] vs. transplanted heart: [place] heart Associated angina: without angina Qualified Code(s): I25.10 - Atherosclerotic heart disease of [place] coronary artery without angina pectoris (6) HTN (hypertension) Code(s): I10 - ESSENTIAL (PRIMARY) HYPERTENSION Qualifiers: Hypertension type: essential hypertension Qualified Code(s): I10 - Essential (primary) hypertension (7) HLD (hyperlipidemia) Code(s): E78.5 - HYPERLIPIDEMIA, UNSPECIFIED Qualifiers: Hyperlipidemia type: pure hypercholesterolemia Qualified Code(s): E78.0 - Pure hypercholesterolemia (8) DAVID (acute kidney injury) Code(s): N17.9 - ACUTE KIDNEY FAILURE, UNSPECIFIED Assessment/Plan (1) NSTEMI (non-ST elevated myocardial infarction) -cardiology managing and note reviewed -off of heparin gtt -continue metoprolol, plavix, lipitor, ranexa -cardiac cath per cardiology Code(s): I21.4 - NON-ST ELEVATION (NSTEMI) MYOCARDIAL INFARCTION (2) Acute on chronic congestive heart failure with left ventricular diastolic dysfunction -continue hydration currently Code(s): I50.33 - ACUTE ON CHRONIC DIASTOLIC (CONGESTIVE) HEART FAILURE (3) Influenza A Assessment/Plan: -s/p full course tamiflu -will stop today Code(s): J10.1 - FLU DUE TO OTH IDENT INFLUENZA VIRUS W OTH RESP MANIFEST (4) Asthma exacerbation with acute respiratory failure Assessment/Plan: -pulmonary following and note reviewed -continue oxygen -continue duonebs and steroids -solumedrol decreased Code(s): J45.901 - UNSPECIFIED ASTHMA WITH (ACUTE) EXACERBATION (5) CAD (coronary artery disease) Assessment/Plan: -as above Code(s): I25.10 - ATHSCL HEART DISEASE OF [place] CORONARY ARTERY W/O ANG PCTRS (6) HTN (hypertension) Assessment/Plan: -continue norvasc and metoprolol -cozaar stopped secondary to renal function Code(s): I10 - ESSENTIAL (PRIMARY) HYPERTENSION (7) HLD (hyperlipidemia) Assessment/Plan: -continue statin Code(s): E78.5 - HYPERLIPIDEMIA, UNSPECIFIED (8) DAVID (acute kidney injury) -improving with hydration -nephrology following Code(s): N17.9 - ACUTE KIDNEY FAILURE, UNSPECIFIED
[2016-03-04] MEDS: ATORVASTATIN CA 80 MG TABLET (FP) PO SCH (21:26)
[2016-03-05] MEDS: ALBUTEROL SO4 2.5/IPRATROPIUM 0.5 INH SOL 3 ML VIAL.NEB. NEB SCH ×3 (06:00→18:00)
--- NOTE | 2016-03-05 08:20 | PN ---
Progress Note (short form) - Note Progress Note: Chief Complaint: Events noted, notes reviewed, dyspnea persists but improved, denies any chest pain, denies any orthopnea History of Present Illness: Seen and examined on telemetry. Events noted, notes reviewed, dyspnea persists but improved, denies any chest pain, denies any orthopnea Echocardiography revealed normal LV size and function, trace MR and mild TR Medications: Current Medications Acetaminophen (Tylenol -) 650 mg PO Q4H PRN PRN Reason: FEVER OR PAIN Al Hydroxide/Mg Hydroxide (Mylanta Oral Suspension -) 30 ml PO Q6H PRN PRN Reason: DYSPEPSIA Albuterol Sulfate (Ventolin 0.083% Nebulizer Soln -) 1 amp NEB Q4H PRN PRN Reason: SHORT OF BREATH/WHEEZING Albuterol/Ipratropium (Duoneb -) 1 amp NEB QIDR [facility] Last Admin: 03/05/16 06:00 Dose: 1 amp Amlodipine Besylate (Norvasc -) 5 mg PO DAILY [facility] Last Admin: 03/04/16 09:29 Dose: 5 mg Aspirin (Ecotrin -) 81 mg PO DAILY [facility] Last Admin: 03/04/16 09:29 Dose: 81 mg Atorvastatin Calcium (Lipitor -) 80 mg PO HS [facility] Last Admin: 03/04/16 21:26 Dose: 80 mg Clopidogrel Bisulfate (Plavix -) 75 mg PO DAILY [facility] Last Admin: 03/04/16 09:29 Dose: 75 mg Cyanocobalamin (Vitamin B12 -) 1,000 mcg PO DAILY [facility] Last Admin: 03/04/16 09:29 Dose: 1,000 mcg Guaifenesin (Mucinex -) 600 mg PO BID [facility] Last Admin: 03/04/16 21:26 Dose: 600 mg Heparin Sodium (Porcine) (Heparin -) 5,000 unit SQ BID [facility] Last Admin: 03/04/16 21:25 Dose: 5,000 unit Sodium Chloride (Normal Saline -) 1,000 mls @ 82 mls/hr IV ASDIR [facility] Last Admin: 03/04/16 09:30 Dose: 82 mls/hr Methylprednisolone Sodium Succinate (Solu-Medrol -) 40 mg IVPB BID [facility] Last Admin: 03/04/16 21:26 Dose: 40 mg Metoprolol Tartrate (Lopressor -) 50 mg PO BID [facility] Last Admin: 03/04/16 21:26 Dose: 50 mg Pantoprazole Sodium (Protonix -) 40 mg PO DAILY [facility] Last Admin: 03/04/16 09:29 Dose: 40 mg Ranolazine (Ranexa -) 500 mg PO BID [facility] Last Admin: 03/04/16 21:25 Dose: 500 mg Tamsulosin HCl (Flomax -) 0.4 mg PO DAILY@0830 [facility] Last Admin: 03/04/16 09:29 Dose: 0.4 mg Review of Systems Cardiovascular: As noted above Respiratory: denies: reports: Persistent Cough Gastrointestinal: denies: Nausea, Vomiting, Diarrhea, Constipation or Abdominal Discomfort Musculoskeletal: No Symptoms Reported Endocrine: No Symptoms Reported Vital Signs: Last Vital Signs Temp Pulse Resp BP Pulse Ox 97.6 F 72 18 147/68 95 03/05/16 06:20 03/05/16 06:20 03/05/16 06:20 03/05/16 06:20 03/04/16 22:00 Constitutional: No Distress, Calm Neck: Supple Positive JVD No Bruit Cardiovascular: S1 S2 Regular Rate and Rhythm Grade 1/6 SM Apical Respiratory: Diminished Breath Sounds at the Bases with Bilateral Scattered Rhonchi Gastrointestinal: Soft Benign Normal Bowel Sounds Ext: Bilateral Edema Labs: ABG Results ABG pH 7.42 (7.35-7.45) 02/28/16 07:10 ABG pCO2 at Pt Temp 40.1 mmHg (35-45) 02/28/16 07:10 ABG pO2 at Pt Temp 78.9 mmHg (68-100) D 02/28/16 07:10 ABG HCO3 25.7 meq/L (22-26) 02/28/16 07:10 ABG O2 Sat (Measured) 95.1 % (90-98.9) 02/28/16 07:10 ABG O2 Content 17.1 % vol (15-22) 02/28/16 07:10 ABG Base Excess 1.7 meq/l (-2-2) 02/28/16 07:10 CBC, BMP 03/04/16 15:40 BMP pending from this AM Assessment/Plan ASSESSMENT: 1. Acute diastolic LV dysfunction with class III-IV NYHA classification LV failure, precipitated by acute ischemia, resolving 2. CAD post PCI/stent angina pectoris with evidence of NSTEMI 3. HTN 4. Hypercholesterolemia 5. Influenza, acute 6. Acute on CKD 7. Anemia PLAN: 1. Continue ASA and Plavix with caution considering the above noted anemia 2. Continue Lopressor 3. Continue Norvasc 3. Recommend resumption of ACEI or ARBS once renal function stabilizes 4. Continue Ranexa 5. Continue Lipitor 6. Considering the above noted clinical presentation would recommend early R&LH cath coronary angiography once renal function stabilizes, discussed in detail with the patient Tyree Arora M.D.
[2016-03-05 09:28] LABS: ALBUMIN 2.5 g/dl (3.4-5.0); BILIRUBIN,TOTAL 0.4 mg/dL (0.2-1.0); CREATININE 1.5 mg/dL (0.7-1.3); TOT PROT 4.6 g/dl (6.4-8.2)
[2016-03-05] MEDS: amLODIPine BESYLATE 5 MG TABLET (FP) PO SCH (10:03)
[2016-03-05] MEDS: CYANOCOBALAMIN 1,000 MCG TABLET (FP) PO SCH (10:03)
[2016-03-05] MEDS: CLOPIDOGREL BISULFATE 75 MG TABLET (FP) PO SCH (10:03)
[2016-03-05] MEDS: guaiFENesin 600 MG TABLET.ER (FP) PO SCH ×2 (10:03→21:50)
[2016-03-05] MEDS: HEPARIN NA (PORCINE) 5,000 UNITS/ML 1ML VIAL SQ SCH ×2 (10:03→21:49)
[2016-03-05] MEDS: ASPIRIN COATED 81 MG TABLET.EC PO SCH (10:03)
[2016-03-05] MEDS: TAMSULOSIN HCL 0.4 MG CAP.ER.24H (FP) PO SCH (10:03)
[2016-03-05] MEDS: PANTOPRAZOLE 40 MG TABLET (FP) PO SCH (10:03)
[2016-03-05] MEDS: METOPROLOL TARTRATE 50 MG TABLET (FP) PO SCH ×2 (10:03→21:50)
[2016-03-05] MEDS: RANOLAZINE E.R. 500 MG TABLET (FP) PO SCH ×2 (10:04→21:50)
[2016-03-05] MEDS: methylPREDNISolone NA SUCC 40 MG/1 ML VIAL IVPB SCH (10:04)
[2016-03-05] MEDS: SODIUM CHLORIDE 1,000 ML IV SCH (10:05)
[2016-03-05 11:31] LABS: MCH 32.1 pg (25.7-33.7); MCHC 32.9 g/dl (32.0-35.9); MEAN CELL VOLUME 97.5 fl (80-96); MEAN PLT VOLUME 9.4 fl (7.5-11.1); PLATELET COUNT 166 K/MM3 (134-434); RDW 12.4 % (11.9-15.9); WHITE BLOOD COUNT 11.3 K/mm3 (4.0-10.0)
--- NOTE | 2016-03-05 12:41 | PN ---
Progress Note (short form) - Note Progress Note: PULMONARY Breathing better. Denies chest pain. +cough with whitish sputum. No fevers or chills. Last Vital Signs Temp Pulse Resp BP Pulse Ox 97.6 F 72 18 147/68 95 03/05/16 06:20 03/05/16 06:20 03/05/16 06:20 03/05/16 06:20 03/04/16 22:00 Gen: NAD at rest Heart: RRR Lung: decreased breath sounds at the bases Abd: soft, nontender Ext: + edema CBC, BMP 03/05/16 05:35 03/05/16 05:35 Active Medications Acetaminophen (Tylenol -) 650 mg PO Q4H PRN PRN Reason: FEVER OR PAIN Al Hydroxide/Mg Hydroxide (Mylanta Oral Suspension -) 30 ml PO Q6H PRN PRN Reason: DYSPEPSIA Albuterol Sulfate (Ventolin 0.083% Nebulizer Soln -) 1 amp NEB Q4H PRN PRN Reason: SHORT OF BREATH/WHEEZING Albuterol/Ipratropium (Duoneb -) 1 amp NEB QIDR [facility] Last Admin: 03/05/16 11:45 Dose: 1 amp Amlodipine Besylate (Norvasc -) 5 mg PO DAILY [facility] Last Admin: 03/05/16 10:03 Dose: 5 mg Aspirin (Ecotrin -) 81 mg PO DAILY [facility] Last Admin: 03/05/16 10:03 Dose: 81 mg Atorvastatin Calcium (Lipitor -) 80 mg PO HS [facility] Last Admin: 03/04/16 21:26 Dose: 80 mg Clopidogrel Bisulfate (Plavix -) 75 mg PO DAILY [facility] Last Admin: 03/05/16 10:03 Dose: 75 mg Cyanocobalamin (Vitamin B12 -) 1,000 mcg PO DAILY [facility] Last Admin: 03/05/16 10:03 Dose: 1,000 mcg Guaifenesin (Mucinex -) 600 mg PO BID [facility] Last Admin: 03/05/16 10:03 Dose: 600 mg Heparin Sodium (Porcine) (Heparin -) 5,000 unit SQ BID [facility] Last Admin: 03/05/16 10:03 Dose: 5,000 unit Sodium Chloride (Normal Saline -) 1,000 mls @ 82 mls/hr IV ASDIR [facility] Last Admin: 03/05/16 10:05 Dose: Not Given Methylprednisolone Sodium Succinate (Solu-Medrol -) 40 mg IVPB BID [facility] Last Admin: 03/05/16 10:04 Dose: 40 mg Metoprolol Tartrate (Lopressor -) 50 mg PO BID [facility] Last Admin: 03/05/16 10:03 Dose: 50 mg Pantoprazole Sodium (Protonix -) 40 mg PO DAILY [facility] Last Admin: 03/05/16 10:03 Dose: 40 mg Ranolazine (Ranexa -) 500 mg PO BID [facility] Last Admin: 03/05/16 10:04 Dose: 500 mg Tamsulosin HCl (Flomax -) 0.4 mg PO DAILY@0830 [facility] Last Admin: 03/05/16 10:03 Dose: 0.4 mg A/P Acute on Chronic LV Diastolic Heart Failure CAD r/o NSTEMI Acute COPD Exacerbation Influenza A Acute Kidney Injury - ASA, plavix - rate controlled on metoprolol - monitor urine output, creatinine - taper steroids, can change to PO - s/p tamiflu - inhaled bronchodilators standing and as needed - for cardiac cath when stable Problem List - Problems (1) Acute on chronic congestive heart failure with left ventricular diastolic dysfunction Code(s): I50.33 - ACUTE ON CHRONIC DIASTOLIC (CONGESTIVE) HEART FAILURE (2) CAD (coronary artery disease) Code(s): I25.10 - ATHSCL HEART DISEASE OF [place] CORONARY ARTERY W/O ANG PCTRS Qualifiers: Coronary Disease-Associated Artery/Lesion type: [place] artery [place] vs. transplanted heart: [place] heart Associated angina: without angina Qualified Code(s): I25.10 - Atherosclerotic heart disease of [place] coronary artery without angina pectoris (3) Influenza A Code(s): J10.1 - FLU DUE TO OTH IDENT INFLUENZA VIRUS W OTH RESP MANIFEST (4) COPD exacerbation Code(s): J44.1 - CHRONIC OBSTRUCTIVE PULMONARY DISEASE W (ACUTE) EXACERBATION (5) HTN (hypertension) Code(s): I10 - ESSENTIAL (PRIMARY) HYPERTENSION Qualifiers: Hypertension type: essential hypertension Qualified Code(s): I10 - Essential (primary) hypertension (6) Elevated troponin Code(s): R79.89 - OTHER SPECIFIED ABNORMAL FINDINGS OF BLOOD CHEMISTRY
[2016-03-05] MEDS ORDERED: BENZOCAINE/MENTH/CETYLPYRD CL 1 EACH LOZENGE MM PRN (12:51)
--- NOTE | 2016-03-05 12:51 | PN ---
Progress Note, Physician Chief Complaint: Patient sits by his bed Still has hoarse voice.. laryngitis Overall feeling better No chest pains Maintains good urine output - Current Medication List Current Medications: Active Medications Acetaminophen (Tylenol -) 650 mg PO Q4H PRN PRN Reason: FEVER OR PAIN Al Hydroxide/Mg Hydroxide (Mylanta Oral Suspension -) 30 ml PO Q6H PRN PRN Reason: DYSPEPSIA Albuterol Sulfate (Ventolin 0.083% Nebulizer Soln -) 1 amp NEB Q4H PRN PRN Reason: SHORT OF BREATH/WHEEZING Albuterol/Ipratropium (Duoneb -) 1 amp NEB QIDR [facility] Last Admin: 03/05/16 11:45 Dose: 1 amp Amlodipine Besylate (Norvasc -) 5 mg PO DAILY [facility] Last Admin: 03/05/16 10:03 Dose: 5 mg Aspirin (Ecotrin -) 81 mg PO DAILY [facility] Last Admin: 03/05/16 10:03 Dose: 81 mg Atorvastatin Calcium (Lipitor -) 80 mg PO HS [facility] Last Admin: 03/04/16 21:26 Dose: 80 mg Clopidogrel Bisulfate (Plavix -) 75 mg PO DAILY [facility] Last Admin: 03/05/16 10:03 Dose: 75 mg Cyanocobalamin (Vitamin B12 -) 1,000 mcg PO DAILY [facility] Last Admin: 03/05/16 10:03 Dose: 1,000 mcg Guaifenesin (Mucinex -) 600 mg PO BID [facility] Last Admin: 03/05/16 10:03 Dose: 600 mg Heparin Sodium (Porcine) (Heparin -) 5,000 unit SQ BID [facility] Last Admin: 03/05/16 10:03 Dose: 5,000 unit Sodium Chloride (Normal Saline -) 1,000 mls @ 82 mls/hr IV ASDIR [facility] Last Admin: 03/05/16 10:05 Dose: Not Given Metoprolol Tartrate (Lopressor -) 50 mg PO BID [facility] Last Admin: 03/05/16 10:03 Dose: 50 mg Pantoprazole Sodium (Protonix -) 40 mg PO DAILY [facility] Last Admin: 03/05/16 10:03 Dose: 40 mg Prednisone (Deltasone -) 40 mg PO DAILY [facility] Ranolazine (Ranexa -) 500 mg PO BID [facility] Last Admin: 03/05/16 10:04 Dose: 500 mg Tamsulosin HCl (Flomax -) 0.4 mg PO DAILY@0830 [facility] Last Admin: 03/05/16 10:03 Dose: 0.4 mg - Objective Vital Signs: Vital Signs Temperature 97.6 F 03/05/16 06:20 Pulse Rate 72 03/05/16 06:20 Respiratory Rate 18 03/05/16 06:20 Blood Pressure 147/68 03/05/16 06:20 O2 Sat by Pulse Oximetry (%) 95 03/04/16 22:00 Constitutional: Yes: Mild Distress Eyes: Yes: WNL HENT: Yes: WNL Neck: Yes: Supple, Trachea Midline Cardiovascular: Yes: Regular Rate and Rhythm, S2 Respiratory: Yes: Regular, CTA Bilaterally Gastrointestinal: Yes: Normal Bowel Sounds, Soft Genitourinary: Yes: WNL Musculoskeletal: Yes: WNL Extremities: Yes: WNL Neurological: Yes: Alert, Oriented Psychiatric: Yes: Alert, Oriented Labs: CBC, BMP 03/05/16 05:35 03/05/16 05:35 INR, PTT INR 0.97 (0.82-1.09) 02/27/16 13:15 Problem List - Problems (1) DAVID (acute kidney injury) Code(s): N17.9 - ACUTE KIDNEY FAILURE, UNSPECIFIED (2) Acute on chronic congestive heart failure with left ventricular diastolic dysfunction Code(s): I50.33 - ACUTE ON CHRONIC DIASTOLIC (CONGESTIVE) HEART FAILURE (3) Anemia Code(s): D64.9 - ANEMIA, UNSPECIFIED (4) Asthma exacerbation Code(s): J45.901 - UNSPECIFIED ASTHMA WITH (ACUTE) EXACERBATION (5) CAD (coronary artery disease) Code(s): I25.10 - ATHSCL HEART DISEASE OF [place] CORONARY ARTERY W/O ANG PCTRS Qualifiers: Coronary Disease-Associated Artery/Lesion type: [place] artery [place] vs. transplanted heart: [place] heart Associated angina: without angina Qualified Code(s): I25.10 - Atherosclerotic heart disease of [place] coronary artery without angina pectoris (6) COPD exacerbation Code(s): J44.1 - CHRONIC OBSTRUCTIVE PULMONARY DISEASE W (ACUTE) EXACERBATION (7) Chronic kidney disease Code(s): N18.9 - CHRONIC KIDNEY DISEASE, UNSPECIFIED (8) Elevated troponin Code(s): R79.89 - OTHER SPECIFIED ABNORMAL FINDINGS OF BLOOD CHEMISTRY (9) HTN (hypertension) Code(s): I10 - ESSENTIAL (PRIMARY) HYPERTENSION Qualifiers: Hypertension type: essential hypertension Qualified Code(s): I10 - Essential (primary) hypertension (10) Subendocardial ischemia Code(s): I24.8 - OTHER FORMS OF ACUTE ISCHEMIC HEART DISEASE Assessment/Plan Renal functions remain fairly stable. Good urine output Some azotemia steroid dependent ? Lozenges ? Chest PT Will monitor the renal functions with you. Shira Mcpherson MD
[2016-03-05 14:01] LABS: PLATELET ESTIMATE ADEQUATE (NORMAL)
--- NOTE | 2016-03-05 16:32 | PN ---
Progress Note, Physician Chief Complaint: Mr Briscoe continues to improve. Says he is feeling much better and is beginning to get "stir crazy". Shortness of breath much improved, with improving cough. No cp or n/v. - Current Medication List Current Medications: Active Medications Acetaminophen (Tylenol -) 650 mg PO Q4H PRN PRN Reason: FEVER OR PAIN Al Hydroxide/Mg Hydroxide (Mylanta Oral Suspension -) 30 ml PO Q6H PRN PRN Reason: DYSPEPSIA Albuterol Sulfate (Ventolin 0.083% Nebulizer Soln -) 1 amp NEB Q4H PRN PRN Reason: SHORT OF BREATH/WHEEZING Albuterol/Ipratropium (Duoneb -) 1 amp NEB QIDR [facility] Last Admin: 03/05/16 11:45 Dose: 1 amp Amlodipine Besylate (Norvasc -) 5 mg PO DAILY [facility] Last Admin: 03/05/16 10:03 Dose: 5 mg Aspirin (Ecotrin -) 81 mg PO DAILY [facility] Last Admin: 03/05/16 10:03 Dose: 81 mg Atorvastatin Calcium (Lipitor -) 80 mg PO HS [facility] Last Admin: 03/04/16 21:26 Dose: 80 mg Benzocaine/Menthol (Cepacol Lozenge -) 1 each MM PRN PRN PRN Reason: SORE THROAT Clopidogrel Bisulfate (Plavix -) 75 mg PO DAILY [facility] Last Admin: 03/05/16 10:03 Dose: 75 mg Cyanocobalamin (Vitamin B12 -) 1,000 mcg PO DAILY [facility] Last Admin: 03/05/16 10:03 Dose: 1,000 mcg Guaifenesin (Mucinex -) 600 mg PO BID [facility] Last Admin: 03/05/16 10:03 Dose: 600 mg Heparin Sodium (Porcine) (Heparin -) 5,000 unit SQ BID [facility] Last Admin: 03/05/16 10:03 Dose: 5,000 unit Sodium Chloride (Normal Saline -) 1,000 mls @ 82 mls/hr IV ASDIR [facility] Last Admin: 03/05/16 10:05 Dose: Not Given Metoprolol Tartrate (Lopressor -) 50 mg PO BID [facility] Last Admin: 03/05/16 10:03 Dose: 50 mg Pantoprazole Sodium (Protonix -) 40 mg PO DAILY [facility] Last Admin: 03/05/16 10:03 Dose: 40 mg Prednisone (Deltasone -) 40 mg PO DAILY [facility] Ranolazine (Ranexa -) 500 mg PO BID [facility] Last Admin: 03/05/16 10:04 Dose: 500 mg Tamsulosin HCl (Flomax -) 0.4 mg PO DAILY@0830 [facility] Last Admin: 03/05/16 10:03 Dose: 0.4 mg - Objective Vital Signs: Vital Signs Temperature 98.3 F 03/05/16 14:00 Pulse Rate 70 03/05/16 14:00 Respiratory Rate 20 03/05/16 14:00 Blood Pressure 141/63 03/05/16 14:00 O2 Sat by Pulse Oximetry (%) 97 03/05/16 10:00 Constitutional: Yes: Well Nourished, No Distress, Calm Cardiovascular: Yes: Regular Rate and Rhythm. No: Gallop, Murmur, Rub Respiratory: Yes: Regular, CTA Bilaterally, Cough (non-productive), On Nasal O2. No: Rales, Rhonchi, Wheezes Gastrointestinal: Yes: Normal Bowel Sounds, Soft. No: Distention, Tenderness Extremities: Yes: WNL Edema: No Labs: CBC, BMP 03/05/16 05:35 03/05/16 05:35 INR, PTT INR 0.97 (0.82-1.09) 02/27/16 13:15 Problem List - Problems (1) NSTEMI (non-ST elevated myocardial infarction) Code(s): I21.4 - NON-ST ELEVATION (NSTEMI) MYOCARDIAL INFARCTION (2) Acute on chronic congestive heart failure with left ventricular diastolic dysfunction Code(s): I50.33 - ACUTE ON CHRONIC DIASTOLIC (CONGESTIVE) HEART FAILURE (3) Influenza A Code(s): J10.1 - FLU DUE TO OTH IDENT INFLUENZA VIRUS W OTH RESP MANIFEST (4) Asthma exacerbation Code(s): J45.901 - UNSPECIFIED ASTHMA WITH (ACUTE) EXACERBATION (5) CAD (coronary artery disease) Code(s): I25.10 - ATHSCL HEART DISEASE OF [place] CORONARY ARTERY W/O ANG PCTRS Qualifiers: Coronary Disease-Associated Artery/Lesion type: [place] artery [place] vs. transplanted heart: [place] heart Associated angina: without angina Qualified Code(s): I25.10 - Atherosclerotic heart disease of [place] coronary artery without angina pectoris (6) HTN (hypertension) Code(s): I10 - ESSENTIAL (PRIMARY) HYPERTENSION Qualifiers: Hypertension type: essential hypertension Qualified Code(s): I10 - Essential (primary) hypertension (7) HLD (hyperlipidemia) Code(s): E78.5 - HYPERLIPIDEMIA, UNSPECIFIED Qualifiers: Hyperlipidemia type: pure hypercholesterolemia Qualified Code(s): E78.0 - Pure hypercholesterolemia (8) DAVID (acute kidney injury) Code(s): N17.9 - ACUTE KIDNEY FAILURE, UNSPECIFIED Assessment/Plan (1) NSTEMI (non-ST elevated myocardial infarction) -cardiology managing and note reviewed -off of heparin gtt -continue metoprolol, plavix, lipitor, ranexa -cardiac cath per cardiology Code(s): I21.4 - NON-ST ELEVATION (NSTEMI) MYOCARDIAL INFARCTION (2) Acute on chronic congestive heart failure with left ventricular diastolic dysfunction -continue hydration currently Code(s): I50.33 - ACUTE ON CHRONIC DIASTOLIC (CONGESTIVE) HEART FAILURE (3) Influenza A Assessment/Plan: -s/p full course tamiflu Code(s): J10.1 - FLU DUE TO OTH IDENT INFLUENZA VIRUS W OTH RESP MANIFEST (4) Asthma exacerbation with acute respiratory failure Assessment/Plan: -pulmonary following and note reviewed -continue oxygen -continue duonebs and steroids -transitioned to prednisone Code(s): J45.901 - UNSPECIFIED ASTHMA WITH (ACUTE) EXACERBATION (5) CAD (coronary artery disease) Assessment/Plan: -as above Code(s): I25.10 - ATHSCL HEART DISEASE OF [place] CORONARY ARTERY W/O ANG PCTRS (6) HTN (hypertension) Assessment/Plan: -continue norvasc and metoprolol -cozaar stopped secondary to renal function Code(s): I10 - ESSENTIAL (PRIMARY) HYPERTENSION (7) HLD (hyperlipidemia) Assessment/Plan: -continue statin Code(s): E78.5 - HYPERLIPIDEMIA, UNSPECIFIED (8) DAVID (acute kidney injury) -improving with hydration -nephrology following Code(s): N17.9 - ACUTE KIDNEY FAILURE, UNSPECIFIED
[2016-03-05] MEDS: ATORVASTATIN CA 80 MG TABLET (FP) PO SCH (21:50)
[2016-03-06] MEDS: ALBUTEROL SO4 2.5/IPRATROPIUM 0.5 INH SOL 3 ML VIAL.NEB. NEB SCH ×4 (05:55→18:15)
[2016-03-06] MEDS: SODIUM CHLORIDE 1,000 ML IV SCH ×2 (06:20→10:15)
[2016-03-06 06:57] LABS: MCH 31.9 pg (25.7-33.7); MEAN CELL VOLUME 96.8 fl (80-96); MEAN PLT VOLUME 9.2 fl (7.5-11.1); PLATELET COUNT 192 K/MM3 (134-434); RDW 12.7 % (11.9-15.9); WHITE BLOOD COUNT 16.1 K/mm3 (4.0-10.0)
[2016-03-06 07:50] LABS: CALCIUM 8.2 mg/dL (8.5-10.1); CREATININE 1.5 mg/dL (0.7-1.3); MAGNESIUM 1.7 mg/dL (1.8-2.4); PHOSPHOROUS 1.6 mg/dL (2.5-4.9)
[2016-03-06 08:43] LABS: METAMYELOCYTE 1 % (0-2)
[2016-03-06] MEDS: PANTOPRAZOLE 40 MG TABLET (FP) PO SCH (10:13)
[2016-03-06] MEDS: RANOLAZINE E.R. 500 MG TABLET (FP) PO SCH ×2 (10:13→21:51)
[2016-03-06] MEDS: predniSONE 20 MG TABLET (UD) PO SCH (10:14)
[2016-03-06] MEDS: CYANOCOBALAMIN 1,000 MCG TABLET (FP) PO SCH (10:14)
[2016-03-06] MEDS: CLOPIDOGREL BISULFATE 75 MG TABLET (FP) PO SCH (10:14)
[2016-03-06] MEDS: METOPROLOL TARTRATE 50 MG TABLET (FP) PO SCH ×2 (10:14→21:51)
[2016-03-06] MEDS: amLODIPine BESYLATE 5 MG TABLET (FP) PO SCH (10:14)
[2016-03-06] MEDS: ASPIRIN COATED 81 MG TABLET.EC PO SCH (10:14)
[2016-03-06] MEDS: TAMSULOSIN HCL 0.4 MG CAP.ER.24H (FP) PO SCH (10:14)
[2016-03-06] MEDS: guaiFENesin 600 MG TABLET.ER (FP) PO SCH ×2 (10:14→21:51)
[2016-03-06] MEDS: HEPARIN NA (PORCINE) 5,000 UNITS/ML 1ML VIAL SQ SCH ×2 (10:16→21:51)
[2016-03-06] MEDS ORDERED: MAGNESIUM SULF 50% (8.12 MEQ/2 ML-1 GM VIAL) IVPB ONE (10:53)
--- NOTE | 2016-03-06 11:12 | PN ---
Progress Note (short form) - Note Progress Note: Renal Follow up for DAVID Pt seen and examined at the bedside complains of discomfort from IV line in the arm no chest pain or sob no N/v/D or Abd pain tolerating diet well good urine output Vital Signs Temperature 98 F 03/06/16 10:00 Pulse Rate 86 03/06/16 10:00 Respiratory Rate 20 03/06/16 10:00 Blood Pressure 145/91 03/06/16 10:00 O2 Sat by Pulse Oximetry (%) 96 03/05/16 21:44 Intake & Output 03/03/16 03/04/16 03/05/16 03/06/16 23:59 23:59 23:59 23:59 Intake Total 2960 210 2168 984 Output Total 108 650 7265 400 Balance 2710 -590 998 584 Gen: NAD, awake and alert on NC CVS: RRR, No m/R LUngs: Dec BS at lung bases but No rales or wheeze Abd: soft NT/ND Ext: No edema, clubbing or cyanosis Gu: No bladder distension CBC, BMP 03/06/16 05:35 03/06/16 05:35 Current Medications Acetaminophen (Tylenol -) 650 mg PO Q4H PRN PRN Reason: FEVER OR PAIN Al Hydroxide/Mg Hydroxide (Mylanta Oral Suspension -) 30 ml PO Q6H PRN PRN Reason: DYSPEPSIA Albuterol Sulfate (Ventolin 0.083% Nebulizer Soln -) 1 amp NEB Q4H PRN PRN Reason: SHORT OF BREATH/WHEEZING Albuterol/Ipratropium (Duoneb -) 1 amp NEB QIDR [facility] Last Admin: 03/06/16 05:55 Dose: 1 amp Amlodipine Besylate (Norvasc -) 5 mg PO DAILY [facility] Last Admin: 03/06/16 10:14 Dose: 5 mg Aspirin (Ecotrin -) 81 mg PO DAILY [facility] Last Admin: 03/06/16 10:14 Dose: 81 mg Atorvastatin Calcium (Lipitor -) 80 mg PO HS [facility] Last Admin: 03/05/16 21:50 Dose: 80 mg Benzocaine/Menthol (Cepacol Lozenge -) 1 each MM PRN PRN PRN Reason: SORE THROAT Clopidogrel Bisulfate (Plavix -) 75 mg PO DAILY [facility] Last Admin: 03/06/16 10:14 Dose: 75 mg Cyanocobalamin (Vitamin B12 -) 1,000 mcg PO DAILY [facility] Last Admin: 03/06/16 10:14 Dose: 1,000 mcg Guaifenesin (Mucinex -) 600 mg PO BID [facility] Last Admin: 03/06/16 10:14 Dose: 600 mg Heparin Sodium (Porcine) (Heparin -) 5,000 unit SQ BID [facility] Last Admin: 03/06/16 10:16 Dose: 5,000 unit Potassium Phosphate 16 mm/ (Sodium Chloride) 255.3333 mls @ 62.5 mls/hr IVPB ONCE ONE Stop: 03/06/16 14:58 Magnesium Sulfate (Magnesium Sulfate) 2 gm IVPB ONCE ONE Stop: 03/06/16 10:54 Metoprolol Tartrate (Lopressor -) 50 mg PO BID [facility] Last Admin: 03/06/16 10:14 Dose: 50 mg Pantoprazole Sodium (Protonix -) 40 mg PO DAILY [facility] Last Admin: 03/06/16 10:13 Dose: 40 mg Prednisone (Deltasone -) 40 mg PO DAILY [facility] Last Admin: 03/06/16 10:14 Dose: 40 mg Ranolazine (Ranexa -) 500 mg PO BID [facility] Last Admin: 03/06/16 10:13 Dose: 500 mg Tamsulosin HCl (Flomax -) 0.4 mg PO DAILY@0830 [facility] Last Admin: 03/06/16 10:14 Dose: 0.4 mg A/P 85 year old Gentleman with PMhx of CAD s/p stents, Prostate Ca s/p prostatectomy , Colon Ca s/p colectomy, hypertension, chronic anemia who presented with sob and fever and found to have influenza A and subendocardial ischemia who developed DAVID with BUN/Cr of 82/2.8. #Non-Oliguric Acute Kidney Injury in setting of IV diuresis and ARB -> ATN Renal function improving toward baseline Volume status now evolemic to slightly hypervolemic can discontinue IVF Lasix PRN for sob but does not need at this time hold off JUN/ARB until renal function stabilizes continue flomax #Influenza A s/p Tamiflu #ACS/HF pt not in decompensated HF at this time off diuretics and IVF Cardiology following #Hx of Hypertension now with marginal BP holding ARBs BP acceptable #Hypophosphatemia to get IV K-phos today Trend daily oral intake as tolerated Lewis Vergara DO
[2016-03-06] MEDS ORDERED: POTASSIUM PHOSPHATE 16 MM in SODIUM CHLORIDE 250 ML IVPB ONE (11:15)
--- NOTE | 2016-03-06 11:22 | PN ---
Progress Note (short form) - Note Progress Note: PULMONARY OOB TO CHAIR OFFERS NO COMPLAINTS VSS/AFEBRILE ANICTERIC DISTANT BREATH SOUNDS B/L S1S2 BS+ SOFT NONTENDER 2+ EDEMA LABS/MEDS/NOTES/IMAGING/MICRO REVIEWED Acute on Chronic LV Diastolic Heart Failure CAD r/o NSTEMI Acute COPD Exacerbation Influenza A Acute Kidney Injury - ASA, plavix - rate controlled on metoprolol - monitor urine output, creatinine - prednisone taper - s/p tamiflu - inhaled bronchodilators standing and as needed - for cardiac cath if kidney function improves Deniz VASQUEZ MD
--- NOTE | 2016-03-06 11:36 | PN ---
Progress Note, Physician History of Present Illness: Dyspnea on exertion and nonproductive cough slowly resolving. - Current Medication List Current Medications: Active Medications Acetaminophen (Tylenol -) 650 mg PO Q4H PRN PRN Reason: FEVER OR PAIN Al Hydroxide/Mg Hydroxide (Mylanta Oral Suspension -) 30 ml PO Q6H PRN PRN Reason: DYSPEPSIA Albuterol Sulfate (Ventolin 0.083% Nebulizer Soln -) 1 amp NEB Q4H PRN PRN Reason: SHORT OF BREATH/WHEEZING Albuterol/Ipratropium (Duoneb -) 1 amp NEB QIDR [facility] Last Admin: 03/06/16 05:55 Dose: 1 amp Amlodipine Besylate (Norvasc -) 5 mg PO DAILY [facility] Last Admin: 03/06/16 10:14 Dose: 5 mg Aspirin (Ecotrin -) 81 mg PO DAILY [facility] Last Admin: 03/06/16 10:14 Dose: 81 mg Atorvastatin Calcium (Lipitor -) 80 mg PO HS [facility] Last Admin: 03/05/16 21:50 Dose: 80 mg Benzocaine/Menthol (Cepacol Lozenge -) 1 each MM PRN PRN PRN Reason: SORE THROAT Clopidogrel Bisulfate (Plavix -) 75 mg PO DAILY [facility] Last Admin: 03/06/16 10:14 Dose: 75 mg Cyanocobalamin (Vitamin B12 -) 1,000 mcg PO DAILY [facility] Last Admin: 03/06/16 10:14 Dose: 1,000 mcg Guaifenesin (Mucinex -) 600 mg PO BID [facility] Last Admin: 03/06/16 10:14 Dose: 600 mg Heparin Sodium (Porcine) (Heparin -) 5,000 unit SQ BID [facility] Last Admin: 03/06/16 10:16 Dose: 5,000 unit Potassium Phosphate 16 mm/ (Sodium Chloride) 255.3333 mls @ 63.83 mls/hr IVPB ONCE ONE PRN Reason: 16 MM/4 HR Stop: 03/06/16 15:15 Metoprolol Tartrate (Lopressor -) 50 mg PO BID [facility] Last Admin: 03/06/16 10:14 Dose: 50 mg Pantoprazole Sodium (Protonix -) 40 mg PO DAILY [facility] Last Admin: 03/06/16 10:13 Dose: 40 mg Prednisone (Deltasone -) 40 mg PO DAILY [facility] Last Admin: 03/06/16 10:14 Dose: 40 mg Ranolazine (Ranexa -) 500 mg PO BID [facility] Last Admin: 03/06/16 10:13 Dose: 500 mg Tamsulosin HCl (Flomax -) 0.4 mg PO DAILY@0830 [facility] Last Admin: 03/06/16 10:14 Dose: 0.4 mg - Objective Vital Signs: Vital Signs Temperature 98 F 03/06/16 10:00 Pulse Rate 86 03/06/16 10:00 Respiratory Rate 20 03/06/16 10:00 Blood Pressure 145/91 03/06/16 10:00 O2 Sat by Pulse Oximetry (%) 96 03/05/16 21:44 Constitutional: Yes: No Distress, Calm, Thin Neck: Yes: Supple Cardiovascular: Yes: Regular Rate and Rhythm Respiratory: Yes: Regular, Diminished Gastrointestinal: Yes: Normal Bowel Sounds, Soft Edema: Yes Edema: LLE: 1+, RLE: 1+ Labs: CBC, BMP 03/06/16 05:35 03/06/16 05:35 INR, PTT INR 0.97 (0.82-1.09) 02/27/16 13:15 Problem List - Problems (1) DAVID (acute kidney injury) Code(s): N17.9 - ACUTE KIDNEY FAILURE, UNSPECIFIED (2) Acute on chronic congestive heart failure with left ventricular diastolic dysfunction Code(s): I50.33 - ACUTE ON CHRONIC DIASTOLIC (CONGESTIVE) HEART FAILURE (3) CAD (coronary artery disease) Code(s): I25.10 - ATHSCL HEART DISEASE OF [place] CORONARY ARTERY W/O ANG PCTRS Qualifiers: Coronary Disease-Associated Artery/Lesion type: [place] artery [place] vs. transplanted heart: [place] heart Associated angina: without angina Qualified Code(s): I25.10 - Atherosclerotic heart disease of [place] coronary artery without angina pectoris (4) COPD exacerbation Code(s): J44.1 - CHRONIC OBSTRUCTIVE PULMONARY DISEASE W (ACUTE) EXACERBATION (5) HLD (hyperlipidemia) Code(s): E78.5 - HYPERLIPIDEMIA, UNSPECIFIED Qualifiers: Hyperlipidemia type: pure hypercholesterolemia Qualified Code(s): E78.0 - Pure hypercholesterolemia (6) HTN (hypertension) Code(s): I10 - ESSENTIAL (PRIMARY) HYPERTENSION Qualifiers: Hypertension type: essential hypertension Qualified Code(s): I10 - Essential (primary) hypertension (7) History of percutaneous coronary intervention Code(s): Z98.89 - OTHER SPECIFIED POSTPROCEDURAL STATES * DO NOT USE * (8) Influenza A Code(s): J10.1 - FLU DUE TO OTH IDENT INFLUENZA VIRUS W OTH RESP MANIFEST (9) Subendocardial ischemia Code(s): I24.8 - OTHER FORMS OF ACUTE ISCHEMIC HEART DISEASE (10) Anemia Code(s): D64.9 - ANEMIA, UNSPECIFIED Assessment/Plan 02/28/2016 Echo: Normal LV size and fxn, mild TR, tr-mild MO 1. Acute diastolic LV dysfunction with class III-IV NYHA classification LV failure, slowly resolving 2. CAD post PCI/stent angina pectoris with evidence of NSTEMI 3. HTN 4. Hypercholesterolemia 5. Influenza, acute 6. Acute on CKD 7. Anemia PLAN: 1. Continue ASA 81 qd and Plavix 75 qd with caution considering the above noted anemia 2. Continue Lopressor 50 bid 3. Continue Norvasc 5 qd 4. Recommend resumption of ACEI or ARBS once renal function stabilizes 5. Continue Ranexa 500 bid 6. Continue Lipitor 80 qhs 7. R&LH cath coronary angiography once renal function stabilizes, may be scheduled as outpatient 8. BD, oral steroid taper, O2 as needed, DVT and GI prophylaxis
--- NOTE | 2016-03-06 13:06 | PN ---
Progress Note, Physician Chief Complaint: Mr Briscoe says he is feeling well. Still with some cough but much improved. No cp or n/v. Shortness of breath is much improved. - Current Medication List Current Medications: Active Medications Acetaminophen (Tylenol -) 650 mg PO Q4H PRN PRN Reason: FEVER OR PAIN Al Hydroxide/Mg Hydroxide (Mylanta Oral Suspension -) 30 ml PO Q6H PRN PRN Reason: DYSPEPSIA Albuterol Sulfate (Ventolin 0.083% Nebulizer Soln -) 1 amp NEB Q4H PRN PRN Reason: SHORT OF BREATH/WHEEZING Albuterol/Ipratropium (Duoneb -) 1 amp NEB QIDR [facility] Last Admin: 03/06/16 05:55 Dose: 1 amp Amlodipine Besylate (Norvasc -) 5 mg PO DAILY [facility] Last Admin: 03/06/16 10:14 Dose: 5 mg Aspirin (Ecotrin -) 81 mg PO DAILY [facility] Last Admin: 03/06/16 10:14 Dose: 81 mg Atorvastatin Calcium (Lipitor -) 80 mg PO HS [facility] Last Admin: 03/05/16 21:50 Dose: 80 mg Benzocaine/Menthol (Cepacol Lozenge -) 1 each MM PRN PRN PRN Reason: SORE THROAT Clopidogrel Bisulfate (Plavix -) 75 mg PO DAILY [facility] Last Admin: 03/06/16 10:14 Dose: 75 mg Cyanocobalamin (Vitamin B12 -) 1,000 mcg PO DAILY [facility] Last Admin: 03/06/16 10:14 Dose: 1,000 mcg Guaifenesin (Mucinex -) 600 mg PO BID [facility] Last Admin: 03/06/16 10:14 Dose: 600 mg Heparin Sodium (Porcine) (Heparin -) 5,000 unit SQ BID [facility] Last Admin: 03/06/16 10:16 Dose: 5,000 unit Potassium Phosphate 16 mm/ (Sodium Chloride) 255.3333 mls @ 63.83 mls/hr IVPB ONCE ONE PRN Reason: 16 MM/4 HR Stop: 03/06/16 15:15 Metoprolol Tartrate (Lopressor -) 50 mg PO BID [facility] Last Admin: 03/06/16 10:14 Dose: 50 mg Pantoprazole Sodium (Protonix -) 40 mg PO DAILY [facility] Last Admin: 03/06/16 10:13 Dose: 40 mg Prednisone (Deltasone -) 40 mg PO DAILY [facility] Last Admin: 03/06/16 10:14 Dose: 40 mg Ranolazine (Ranexa -) 500 mg PO BID [facility] Last Admin: 03/06/16 10:13 Dose: 500 mg Tamsulosin HCl (Flomax -) 0.4 mg PO DAILY@0830 [facility] Last Admin: 03/06/16 10:14 Dose: 0.4 mg - Objective Vital Signs: Vital Signs Temperature 98 F 03/06/16 10:00 Pulse Rate 86 03/06/16 10:00 Respiratory Rate 20 03/06/16 10:00 Blood Pressure 145/91 03/06/16 10:00 O2 Sat by Pulse Oximetry (%) 94 L 03/06/16 10:00 Constitutional: Yes: Well Nourished, No Distress, Calm Cardiovascular: Yes: Regular Rate and Rhythm. No: Gallop, Murmur, Rub Respiratory: Yes: Regular, On Nasal O2, Wheezes. No: Rales, Rhonchi Gastrointestinal: Yes: Normal Bowel Sounds, Soft. No: Distention, Tenderness Extremities: Yes: WNL Edema: No Labs: CBC, BMP 03/06/16 05:35 03/06/16 05:35 INR, PTT INR 0.97 (0.82-1.09) 02/27/16 13:15 Problem List - Problems (1) NSTEMI (non-ST elevated myocardial infarction) Code(s): I21.4 - NON-ST ELEVATION (NSTEMI) MYOCARDIAL INFARCTION (2) Acute on chronic congestive heart failure with left ventricular diastolic dysfunction Code(s): I50.33 - ACUTE ON CHRONIC DIASTOLIC (CONGESTIVE) HEART FAILURE (3) Influenza A Code(s): J10.1 - FLU DUE TO OTH IDENT INFLUENZA VIRUS W OTH RESP MANIFEST (4) Asthma exacerbation Code(s): J45.901 - UNSPECIFIED ASTHMA WITH (ACUTE) EXACERBATION (5) CAD (coronary artery disease) Code(s): I25.10 - ATHSCL HEART DISEASE OF [place] CORONARY ARTERY W/O ANG PCTRS Qualifiers: Coronary Disease-Associated Artery/Lesion type: [place] artery [place] vs. transplanted heart: [place] heart Associated angina: without angina Qualified Code(s): I25.10 - Atherosclerotic heart disease of [place] coronary artery without angina pectoris (6) HTN (hypertension) Code(s): I10 - ESSENTIAL (PRIMARY) HYPERTENSION Qualifiers: Hypertension type: essential hypertension Qualified Code(s): I10 - Essential (primary) hypertension (7) HLD (hyperlipidemia) Code(s): E78.5 - HYPERLIPIDEMIA, UNSPECIFIED Qualifiers: Hyperlipidemia type: pure hypercholesterolemia Qualified Code(s): E78.0 - Pure hypercholesterolemia (8) DAVID (acute kidney injury) Code(s): N17.9 - ACUTE KIDNEY FAILURE, UNSPECIFIED Assessment/Plan (1) NSTEMI (non-ST elevated myocardial infarction) -cardiology managing and note reviewed -off of heparin gtt -continue metoprolol, plavix, lipitor, ranexa -safe for outpatient cardiac cath per cardiology Code(s): I21.4 - NON-ST ELEVATION (NSTEMI) MYOCARDIAL INFARCTION (2) Acute on chronic congestive heart failure with left ventricular diastolic dysfunction -hydration stopped -no need for diuresis Code(s): I50.33 - ACUTE ON CHRONIC DIASTOLIC (CONGESTIVE) HEART FAILURE (3) Influenza A Assessment/Plan: -s/p full course tamiflu Code(s): J10.1 - FLU DUE TO OTH IDENT INFLUENZA VIRUS W OTH RESP MANIFEST (4) Asthma exacerbation with acute respiratory failure Assessment/Plan: -pulmonary following and note reviewed -continue oxygen -continue duonebs and steroids -transitioned to prednisone -will check to see if needs home oxygen in am Code(s): J45.901 - UNSPECIFIED ASTHMA WITH (ACUTE) EXACERBATION (5) CAD (coronary artery disease) Assessment/Plan: -as above Code(s): I25.10 - ATHSCL HEART DISEASE OF [place] CORONARY ARTERY W/O ANG PCTRS (6) HTN (hypertension) Assessment/Plan: -continue norvasc and metoprolol -cozaar stopped secondary to renal function Code(s): I10 - ESSENTIAL (PRIMARY) HYPERTENSION (7) HLD (hyperlipidemia) Assessment/Plan: -continue statin Code(s): E78.5 - HYPERLIPIDEMIA, UNSPECIFIED (8) DAVID (acute kidney injury) -hydration stopped -recheck in am Code(s): N17.9 - ACUTE KIDNEY FAILURE, UNSPECIFIED Dispo -possible discharge tomorrow
[2016-03-06] MEDS: ATORVASTATIN CA 80 MG TABLET (FP) PO SCH (21:51)
[2016-03-07] MEDS: ALBUTEROL SO4 2.5/IPRATROPIUM 0.5 INH SOL 3 ML VIAL.NEB. NEB SCH ×3 (06:30→11:01)
[2016-03-07 06:57] LABS: MCH 32.3 pg (25.7-33.7); MCHC 33.7 g/dl (32.0-35.9); MEAN CELL VOLUME 95.8 fl (80-96); MEAN PLT VOLUME 9.3 fl (7.5-11.1); PLATELET COUNT 212 K/MM3 (134-434); RDW 12.5 % (11.9-15.9); WHITE BLOOD COUNT 13.8 K/mm3 (4.0-10.0)
[2016-03-07 07:48] LABS: CALCIUM 8.1 mg/dL (8.5-10.1); CREATININE 1.3 mg/dL (0.7-1.3); MAGNESIUM 2.1 mg/dL (1.8-2.4); PHOSPHOROUS 2.1 mg/dL (2.5-4.9)
[2016-03-07 08:21] LABS: METAMYELOCYTE 3 % (0-2)
[2016-03-07] MEDS: RANOLAZINE E.R. 500 MG TABLET (FP) PO SCH (09:27)
[2016-03-07] MEDS: HEPARIN NA (PORCINE) 5,000 UNITS/ML 1ML VIAL SQ SCH (09:27)
[2016-03-07] MEDS: PANTOPRAZOLE 40 MG TABLET (FP) PO SCH (09:27)
[2016-03-07] MEDS: ASPIRIN COATED 81 MG TABLET.EC PO SCH (09:28)
[2016-03-07] MEDS: TAMSULOSIN HCL 0.4 MG CAP.ER.24H (FP) PO SCH (09:28)
[2016-03-07] MEDS: guaiFENesin 600 MG TABLET.ER (FP) PO SCH (09:28)
[2016-03-07] MEDS: predniSONE 20 MG TABLET (UD) PO SCH (09:28)
[2016-03-07] MEDS: amLODIPine BESYLATE 5 MG TABLET (FP) PO SCH (09:28)
[2016-03-07] MEDS: CLOPIDOGREL BISULFATE 75 MG TABLET (FP) PO SCH (09:28)
[2016-03-07] MEDS: CYANOCOBALAMIN 1,000 MCG TABLET (FP) PO SCH (09:29)
[2016-03-07] MEDS: METOPROLOL TARTRATE 50 MG TABLET (FP) PO SCH (09:29)
--- NOTE | 2016-03-07 09:54 | PN ---
Progress Note, Physician Chief Complaint: Events noted Still with cough intermittently but slowly improving History of Present Illness: Patient was seen and examined. Awake and alert. Chart was reviewed Still with cough intermittently and mucous, but slowly improving. Denies chest pain or palpitations, but with laryngitis Renal function improved - Current Medication List Current Medications: Active Medications Acetaminophen (Tylenol -) 650 mg PO Q4H PRN PRN Reason: FEVER OR PAIN Al Hydroxide/Mg Hydroxide (Mylanta Oral Suspension -) 30 ml PO Q6H PRN PRN Reason: DYSPEPSIA Albuterol Sulfate (Ventolin 0.083% Nebulizer Soln -) 1 amp NEB Q4H PRN PRN Reason: SHORT OF BREATH/WHEEZING Albuterol/Ipratropium (Duoneb -) 1 amp NEB QIDR [facility] Last Admin: 03/07/16 06:30 Dose: 1 amp Amlodipine Besylate (Norvasc -) 5 mg PO DAILY [facility] Last Admin: 03/07/16 09:28 Dose: 5 mg Aspirin (Ecotrin -) 81 mg PO DAILY [facility] Last Admin: 03/07/16 09:28 Dose: 81 mg Atorvastatin Calcium (Lipitor -) 80 mg PO HS [facility] Last Admin: 03/06/16 21:51 Dose: 80 mg Benzocaine/Menthol (Cepacol Lozenge -) 1 each MM PRN PRN PRN Reason: SORE THROAT Clopidogrel Bisulfate (Plavix -) 75 mg PO DAILY [facility] Last Admin: 03/07/16 09:28 Dose: 75 mg Cyanocobalamin (Vitamin B12 -) 1,000 mcg PO DAILY [facility] Last Admin: 03/07/16 09:29 Dose: 1,000 mcg Guaifenesin (Mucinex -) 600 mg PO BID [facility] Last Admin: 03/07/16 09:28 Dose: 600 mg Heparin Sodium (Porcine) (Heparin -) 5,000 unit SQ BID [facility] Last Admin: 03/07/16 09:27 Dose: 5,000 unit Metoprolol Tartrate (Lopressor -) 50 mg PO BID [facility] Last Admin: 03/07/16 09:29 Dose: 50 mg Pantoprazole Sodium (Protonix -) 40 mg PO DAILY [facility] Last Admin: 03/07/16 09:27 Dose: 40 mg Prednisone (Deltasone -) 40 mg PO DAILY [facility] Last Admin: 03/07/16 09:28 Dose: 40 mg Ranolazine (Ranexa -) 500 mg PO BID [facility] Last Admin: 03/07/16 09:27 Dose: 500 mg Tamsulosin HCl (Flomax -) 0.4 mg PO DAILY@0830 [facility] Last Admin: 03/07/16 09:28 Dose: 0.4 mg - Objective Vital Signs: Vital Signs Temperature 97.6 F 03/07/16 06:00 Pulse Rate 63 03/07/16 06:00 Respiratory Rate 18 03/07/16 06:00 Blood Pressure 152/69 03/07/16 06:00 O2 Sat by Pulse Oximetry (%) 94 L 03/06/16 22:00 Neck: Yes: Supple Cardiovascular: Yes: Regular Rate and Rhythm, S1, S2 Respiratory: Yes: Diminished, Wheezes (Mild expiratory) Gastrointestinal: Yes: Normal Bowel Sounds, Soft. No: Tenderness Edema: No Additional Findings/Remarks: Cardiovascular: As noted above Respiratory: denies: reports: Cough Gastrointestinal: denies: Nausea, Vomiting, Diarrhea, Constipation or Abdominal Discomfort Musculoskeletal: No Symptoms Reported Endocrine: No Symptoms Reported Labs: CBC, BMP 03/07/16 05:35 03/07/16 05:35 Problem List - Problems (1) Acute on chronic congestive heart failure with left ventricular diastolic dysfunction Code(s): I50.33 - ACUTE ON CHRONIC DIASTOLIC (CONGESTIVE) HEART FAILURE (2) CAD (coronary artery disease) Code(s): I25.10 - ATHSCL HEART DISEASE OF [place] CORONARY ARTERY W/O ANG PCTRS Qualifiers: Coronary Disease-Associated Artery/Lesion type: [place] artery [place] vs. transplanted heart: [place] heart Associated angina: without angina Qualified Code(s): I25.10 - Atherosclerotic heart disease of [place] coronary artery without angina pectoris (3) Elevated troponin Code(s): R79.89 - OTHER SPECIFIED ABNORMAL FINDINGS OF BLOOD CHEMISTRY (4) HLD (hyperlipidemia) Code(s): E78.5 - HYPERLIPIDEMIA, UNSPECIFIED Qualifiers: Hyperlipidemia type: pure hypercholesterolemia Qualified Code(s): E78.0 - Pure hypercholesterolemia (5) HTN (hypertension) Code(s): I10 - ESSENTIAL (PRIMARY) HYPERTENSION Qualifiers: Hypertension type: essential hypertension Qualified Code(s): I10 - Essential (primary) hypertension (6) Influenza A Code(s): J10.1 - FLU DUE TO OTH IDENT INFLUENZA VIRUS W OTH RESP MANIFEST (7) NSTEMI (non-ST elevated myocardial infarction) Code(s): I21.4 - NON-ST ELEVATION (NSTEMI) MYOCARDIAL INFARCTION (8) History of percutaneous coronary intervention Code(s): Z98.89 - OTHER SPECIFIED POSTPROCEDURAL STATES * DO NOT USE * Assessment/Plan 1. Clinical presentation is consistent with acute systolic/diastolic LV dysfunction with class III-IV NYHA classification LV failure, precipitated by acute ischemia 2. CAD post PCI/stent angina pectoris with evidence of NSTEMI 3. HTN 4. Hypercholesterolemia 5. Influenza, acute 6. Anemia 7. History of CKD PLAN: 1. Continue ASA and Plavix 2. Continue Lopressor and Norvasc 3. Continue Diovan as tolerated 4. Continue Ranexa 500 mg BID as tolerated 5. Continue Lipitor 6. Received Tamiflu 7. Considering the above noted clinical presentation would recommend early right and left heart catheterization/coronary angiography once LV failure class and influenza improves and renal function stabilizes. Tentatively aim for next week. Further plans are to follow. Piero Ruiz MD
[2016-03-07] MEDS ORDERED: NAPH,MB-DB/K PH,MBDB POWDER PACKET PO SCH (13:45)
--- NOTE | 2016-03-07 13:57 | PN ---
Progress Note (short form) - Note Progress Note: Renal Follow up for DAVID Pt seen and examined at the bedside no acute complaints Vital Signs Temperature 98.2 F 03/07/16 10:00 Pulse Rate 80 03/07/16 10:00 Respiratory Rate 18 03/07/16 10:00 Blood Pressure 153/68 03/07/16 10:00 O2 Sat by Pulse Oximetry (%) 94 L 03/06/16 22:00 Intake & Output 03/04/16 03/05/16 03/06/16 03/07/16 23:59 23:59 23:59 23:59 Intake Total 210 2168 2184 Output Total 800 1170 1000 450 Balance -318 543 4639 -450 Gen: NAD, awake and alert on NC CVS: RRR, No m/R LUngs: Dec BS at lung bases but No rales or wheeze Abd: soft NT/ND Ext: No edema, clubbing or cyanosis Gu: No bladder distension CBC, BMP 03/07/16 05:35 03/07/16 05:35 Current Medications Acetaminophen (Tylenol -) 650 mg PO Q4H PRN PRN Reason: FEVER OR PAIN Albuterol Sulfate (Ventolin 0.083% Nebulizer Soln -) 1 amp NEB Q4H PRN PRN Reason: SHORT OF BREATH/WHEEZING Albuterol/Ipratropium (Duoneb -) 1 amp NEB QIDR [facility] Last Admin: 03/07/16 11:01 Dose: 1 amp Amlodipine Besylate (Norvasc -) 5 mg PO DAILY [facility] Last Admin: 03/07/16 09:28 Dose: 5 mg Aspirin (Ecotrin -) 81 mg PO DAILY [facility] Last Admin: 03/07/16 09:28 Dose: 81 mg Atorvastatin Calcium (Lipitor -) 80 mg PO HS [facility] Last Admin: 03/06/16 21:51 Dose: 80 mg Benzocaine/Menthol (Cepacol Lozenge -) 1 each MM PRN PRN PRN Reason: SORE THROAT Clopidogrel Bisulfate (Plavix -) 75 mg PO DAILY [facility] Last Admin: 03/07/16 09:28 Dose: 75 mg Cyanocobalamin (Vitamin B12 -) 1,000 mcg PO DAILY [facility] Last Admin: 03/07/16 09:29 Dose: 1,000 mcg Guaifenesin (Mucinex -) 600 mg PO BID [facility] Last Admin: 03/07/16 09:28 Dose: 600 mg Heparin Sodium (Porcine) (Heparin -) 5,000 unit SQ BID [facility] Last Admin: 03/07/16 09:27 Dose: 5,000 unit Metoprolol Tartrate (Lopressor -) 50 mg PO BID [facility] Last Admin: 03/07/16 09:29 Dose: 50 mg Pantoprazole Sodium (Protonix -) 40 mg PO DAILY [facility] Last Admin: 03/07/16 09:27 Dose: 40 mg Potassium Phos/Sodium Phos (Phos-Nak Packet -) 1 packet PO BID [facility] Prednisone (Deltasone -) 40 mg PO DAILY [facility] Last Admin: 03/07/16 09:28 Dose: 40 mg Ranolazine (Ranexa -) 500 mg PO BID [facility] Last Admin: 03/07/16 09:27 Dose: 500 mg Tamsulosin HCl (Flomax -) 0.4 mg PO DAILY@0830 [facility] Last Admin: 03/07/16 09:28 Dose: 0.4 mg A/P 85 year old Gentleman with PMhx of CAD s/p stents, Prostate Ca s/p prostatectomy , Colon Ca s/p colectomy, hypertension, chronic anemia who presented with sob and fever and found to have influenza A and subendocardial ischemia who developed DAVID with BUN/Cr of 82/2.8. #Non-Oliguric Acute Kidney Injury in setting of IV diuresis and ARB -> ATN Renal function near baseline currently off ARB, if Cr remains stable can restart no need for IVF at this time PRN lasix for sob avoid nsaids #Influenza A s/p Tamiflu #ACS/HF pt not in decompensated HF at this time off diuretics and IVF Cardiology following #Hx of Hypertension now with marginal BP holding ARB for now, can restart if renal function remains stable #Hypophosphatemia improved s/p IV k-phos but still low Give PO neutraphos today may need Vit D supplementation Lewis Vergara DO
--- NOTE | 2016-03-07 14:29 | PN ---
Progress Note (short form) - Note Progress Note: PULMONARY Breathing continues to improve but still with some congestion. Denies chest pain. +cough with whitish sputum. No fevers or chills. Last Vital Signs Temp Pulse Resp BP Pulse Ox 98.2 F 80 18 153/68 94 L 03/07/16 10:00 03/07/16 10:00 03/07/16 10:00 03/07/16 10:00 03/06/16 22:00 Gen: NAD at rest Heart: RRR Lung: decreased breath sounds at the bases Abd: soft, nontender Ext: + edema CBC, BMP 03/07/16 05:35 03/07/16 05:35 Active Medications Acetaminophen (Tylenol -) 650 mg PO Q4H PRN PRN Reason: FEVER OR PAIN Albuterol Sulfate (Ventolin 0.083% Nebulizer Soln -) 1 amp NEB Q4H PRN PRN Reason: SHORT OF BREATH/WHEEZING Albuterol/Ipratropium (Duoneb -) 1 amp NEB QIDR [facility] Last Admin: 03/07/16 11:01 Dose: 1 amp Amlodipine Besylate (Norvasc -) 5 mg PO DAILY [facility] Last Admin: 03/07/16 09:28 Dose: 5 mg Aspirin (Ecotrin -) 81 mg PO DAILY [facility] Last Admin: 03/07/16 09:28 Dose: 81 mg Atorvastatin Calcium (Lipitor -) 80 mg PO HS [facility] Last Admin: 03/06/16 21:51 Dose: 80 mg Benzocaine/Menthol (Cepacol Lozenge -) 1 each MM PRN PRN PRN Reason: SORE THROAT Clopidogrel Bisulfate (Plavix -) 75 mg PO DAILY [facility] Last Admin: 03/07/16 09:28 Dose: 75 mg Cyanocobalamin (Vitamin B12 -) 1,000 mcg PO DAILY [facility] Last Admin: 03/07/16 09:29 Dose: 1,000 mcg Guaifenesin (Mucinex -) 600 mg PO BID [facility] Last Admin: 03/07/16 09:28 Dose: 600 mg Heparin Sodium (Porcine) (Heparin -) 5,000 unit SQ BID [facility] Last Admin: 03/07/16 09:27 Dose: 5,000 unit Metoprolol Tartrate (Lopressor -) 50 mg PO BID [facility] Last Admin: 03/07/16 09:29 Dose: 50 mg Pantoprazole Sodium (Protonix -) 40 mg PO DAILY [facility] Last Admin: 03/07/16 09:27 Dose: 40 mg Potassium Phos/Sodium Phos (Phos-Nak Packet -) 1 packet PO BID [facility] Prednisone (Deltasone -) 40 mg PO DAILY [facility] Last Admin: 03/07/16 09:28 Dose: 40 mg Ranolazine (Ranexa -) 500 mg PO BID [facility] Last Admin: 03/07/16 09:27 Dose: 500 mg Tamsulosin HCl (Flomax -) 0.4 mg PO DAILY@0830 [facility] Last Admin: 03/07/16 09:28 Dose: 0.4 mg A/P Acute on Chronic LV Diastolic Heart Failure CAD r/o NSTEMI Acute COPD Exacerbation Influenza A Acute Kidney Injury - ASA, plavix - rate controlled on metoprolol - monitor urine output, creatinine - prednisone taper - s/p tamiflu - inhaled bronchodilators standing and as needed - for cardiac cath when stable Problem List - Problems (1) Acute on chronic congestive heart failure with left ventricular diastolic dysfunction Code(s): I50.33 - ACUTE ON CHRONIC DIASTOLIC (CONGESTIVE) HEART FAILURE (2) CAD (coronary artery disease) Code(s): I25.10 - ATHSCL HEART DISEASE OF [place] CORONARY ARTERY W/O ANG PCTRS Qualifiers: Coronary Disease-Associated Artery/Lesion type: [place] artery [place] vs. transplanted heart: [place] heart Associated angina: without angina Qualified Code(s): I25.10 - Atherosclerotic heart disease of [place] coronary artery without angina pectoris (3) Influenza A Code(s): J10.1 - FLU DUE TO OTH IDENT INFLUENZA VIRUS W OTH RESP MANIFEST (4) COPD exacerbation Code(s): J44.1 - CHRONIC OBSTRUCTIVE PULMONARY DISEASE W (ACUTE) EXACERBATION (5) HTN (hypertension) Code(s): I10 - ESSENTIAL (PRIMARY) HYPERTENSION Qualifiers: Hypertension type: essential hypertension Qualified Code(s): I10 - Essential (primary) hypertension (6) Elevated troponin Code(s): R79.89 - OTHER SPECIFIED ABNORMAL FINDINGS OF BLOOD CHEMISTRY
--- NOTE | 2016-03-07 14:42 | DS ---
Physical Examination Vital Signs: Vital Signs Temperature 98.2 F 03/07/16 10:00 Pulse Rate 80 03/07/16 10:00 Respiratory Rate 18 03/07/16 10:00 Blood Pressure 153/68 03/07/16 10:00 O2 Sat by Pulse Oximetry (%) 94 L 03/06/16 22:00 Labs: CBC, BMP 03/07/16 05:35 03/07/16 05:35 Discharge Summary Reason For Visit: INFLUENZA A Current Active Problems DAVID (acute kidney injury) (Acute) Acute on chronic congestive heart failure with left ventricular diastolic dysfunction (Acute) Anemia (Acute) Asthma exacerbation (Acute) CAD (coronary artery disease) (Acute) COPD exacerbation (Acute) Chronic kidney disease (Acute) Elevated troponin (Acute) HLD (hyperlipidemia) (Acute) HTN (hypertension) (Acute) History of percutaneous coronary intervention (Acute) Influenza A (Acute) NSTEMI (non-ST elevated myocardial infarction) (Acute) Subendocardial ischemia (Acute) Urinary retention with incomplete bladder emptying (Acute) Condition: Good - Instructions Diet, Activity, Other Instructions: low salt, low fat diet. Avoid strenuous activity until cleared by cardiology Referrals: Alec Foley MD [Primary Care Provider] - Mayank Ellis MD [Staff Physician] - Piero Ruiz MD [Staff Physician] - Disposition: HOME - Home Medications Comprehensive Discharge Medication List: Ambulatory Orders Aspirin Coated [Ecotrin -] 81 mg PO DAILY 12/05/11 Ferrous Fumarate [Iron] 65 mg PO DAILY 12/05/11 Magnesium 250 mg PO HS 12/05/11 Cyanocobalamin (Vitamin B-12) [Vitamin B-12] 1,000 mcg PO SUWEFR 02/26/16 Amlodipine Besylate [Norvasc -] 5 mg PO DAILY #30 tablet 03/07/16 Atorvastatin Ca [Lipitor] 80 mg PO HS #30 tablet 03/07/16 Clopidogrel Bisulfate [Plavix -] 75 mg PO DAILY #30 tablet 03/07/16 Ipratropium/Albuterol Sulfate [Combivent Respimat Inhal [place]] 4 gm IH TID #1 aer.w.adap 03/07/16 Metoprolol Tartrate [Lopressor -] 50 mg PO BID #60 tablet 03/07/16 Prednisone [Deltasone -] 5 mg PO ASDIR #32 tab 03/07/16 Ranolazine [Ranexa -] 500 mg PO BID #60 tab 03/07/16 Tamsulosin HCl [Flomax -] 0.4 mg PO DAILY@0830 #30 cap.er.24h 03/07/16
[2016-03-07 15:44] VITALS: BP 109/56; PULSE 68; TEMP 98.1
== END 2016-03-07 16:05 | disposition home or self-care (01) | DRG 280 ==
LOC: JER 14:19 → JERBED 18:56 → JICU 02-27 14:36 → J4S 02-28 14:36
PROVIDERS: ADMIT Internal Medicine; ATTEND Internal Medicine
PROC: 3E0F7GC Introduction of Other Therapeutic Substance into Respiratory Tract, Via Natural or Artificial Opening (ICD-10-PCS; principal; 2016-02-26)
DX: I21.4 Non-ST elevation (NSTEMI) myocardial infarction (principal); I50.33 Acute on chronic diastolic (congestive) heart failure; J96.01 Acute respiratory failure with hypoxia; N17.0 Acute kidney failure with tubular necrosis; J45.901 Unspecified asthma with (acute) exacerbation; I13.0 Hypertensive heart and chronic kidney disease with heart failure and stage 1 through stage 4 chronic kidney disease, or unspecified chronic kidney disease; J44.1 Chronic obstructive pulmonary disease with (acute) exacerbation; I25.10 Atherosclerotic heart disease of native coronary artery without angina pectoris; Z95.5 Presence of coronary angioplasty implant and graft; D64.9 Anemia, unspecified; Z85.038 Personal history of other malignant neoplasm of large intestine; Z85.46 Personal history of malignant neoplasm of prostate; Z87.891 Personal history of nicotine dependence; J10.1 Influenza due to other identified influenza virus with other respiratory manifestations; I16.0 Hypertensive urgency; N18.9 Chronic kidney disease, unspecified; I24.8 Other forms of acute ischemic heart disease; R33.8 Other retention of urine; E83.39 Other disorders of phosphorus metabolism
CPT/HCPCS: 36415; 36600; 71010-TC; 76775-TC; 80048; 80053; 80061; 81003; 82550; 82553; 82570; 82803; 83721; 83735; 83880; 84100; 84156; 84443; 84484; 84540; 85025; 85027; 85610; 85730; 87040; 87804; 87899; 93005; 93010; 93306-TC; 93970-TC; 94640; 97116-GP; 97161-GP; 99285-25; J1644